=== PATIENT | female | born 1960 | race Caucasian/White ===

== ENCOUNTER 2018-01-14 11:18 | Day surgery (SDC) | payer MEDICARE, OTHER ==
[~2018-01-14 11:18] MED LIST: Buffered Lidocaine 0.9% SYRIN* 5 ML/SYR SYRINGE INTRADERM ONE; Lidocaine 1% INJ* 10 MG/ML 30 ML SDV ONE; Misoprostol TAB* 200 MCG ONE
[2018-01-14] MEDS ORDERED: Buffered Lidocaine 0.9% SYRIN* 5 ML/SYR SYRINGE ONE (11:49)
[2018-01-14] MEDS ORDERED: fentaNYL* 50 MCG/ML 2 ML VIAL (100 MCG VIAL) ONE (12:17)
[2018-01-14] MEDS ORDERED: Midazolam* 1 MG/ML 2 ML VIAL (2 MG) ONE (12:17)
[2018-01-14] MEDS ORDERED: Propofol* 10 MG/ML 20 ML BTL IV PUSH ONE ×2 (12:18→13:42)
[2018-01-14] MEDS ORDERED: Naloxone* 0.4 MG/ML 1 ML VIAL IV PRN (13:56)
[2018-01-14 14:32] VITALS: BP 114/68
--- NOTE | 2018-01-15 10:29 | PRO ---
CC: Dr. Jamison Rivas GASTROENTEROLOGY PROCEDURE NOTE: DATE OF PROCEDURE: 01/14/18 REFERRING PHYSICIAN: Dr. Jamison Rivas. PROCEDURE: Colonoscopy to cecum with snare polypectomy and jumbo biopsies. PREOPERATIVE DIAGNOSIS: A 57-year-old female with first-degree family history of colon cancer. POSTOPERATIVE DIAGNOSES: 1. A 6-mm polyp as well as 2 additional 5-mm polyps of the sigmoid colon, status post cold snare [place] ypectomy and jumbo biopsy resection respectively with complete resection and retrieval. 2. Rare scattered sigmoid diverticulosis. 3. Internal hemorrhoids. PROCEDURE MEDICATIONS: Per Anesthesia. INSTRUMENT: PCF-190 Olympus variable high-definition pediatric colonoscope. DESCRIPTION OF PROCEDURE: Informed consent was obtained prior to performing this procedure. The ins trument was introduced into the anus and passed through the rectum under direct visualization. The i nstrument was then advanced up to the cecum. The cecum was confirmed by visualization of the appendi ceal orifice, ileocecal valve, and tri-folds of the cecum. The colonoscope was slowly withdrawn. The preparation was excellent. Mucosa throughout the cecum, ascending colon, transverse colon, descendi ng colon was normal. Rare scattered sigmoid diverticulosis was present. In the sigmoid colon, there was a 6-mm polyp removed via cold snare polypectomy with complete resection and retrieval and 2 ga tional 5- mm polyps removed via jumbo biopsy resection with complete resection and retrieval. Interna l hemorrhoids were visualized in the rectum. Digital examination was normal. The patient tolerated the procedure well and there were no complications. RECOMMENDATIONS: I will notify the patient of pathology results in 1 week. We will plan on followup colonoscopy in 5 years. [id number]/[facility] #: [id number]
--- NOTE | 2018-01-16 14:59 | HP ---
CC: Jamison Rivas MD GASTROENTEROLOGY HISTORY AND PHYSICAL: DATE OF ADMISSION: 01/14/18 REFERRED BY: Jamison Rivas MD CHIEF COMPLAINT: The patient presents to [facility] for colon cancer screening with emily wiggins assistance in the OR. HISTORY OF PRESENT ILLNESS: Mrs. Altamirano is a 57-year-old female who has a first- degree family histo ry of colon cancer in her mother. The patient does describe long history of constipation unless taki ng senna. There has been no rectal bleeding. She denies any abdominal pain. There has been no weig ht loss. The patient is on pain medications including morphine sulfate, tramadol for back pain issue s. PAST MEDICAL HISTORY: Significant for; 1. Acid reflux disease. 2. Chronic back pain. PAST SURGICAL HISTORY: 1. Status post cholecystectomy. 2. Left breast biopsy. 3. Total knee replacement. MEDICATIONS ON ADMISSION: Include; 1. Nexium 40 mg b.i.d. 2. Celebrex 200 mg daily. 3. Amitriptyline 10 mg daily. 4. Morphine Sulfate ER 60 mg 1 tablet daily. 5. Tramadol 50 mg. 6. Carisoprodol 350 mg 4 times a day. 7. Colestipol. 8. Senna. 9. Fish oil. 10. Centrum Silver. ALLERGIES: 1. CHOLESTYRAMINE. 2. MORPHINE. 3. NEURONTIN. FAMILY HISTORY: Significant for mother with colon cancer. SOCIAL HISTORY: The patient does smoke and drinks occasional alcoholic beverages. REVIEW OF SYSTEMS: A 10-point review of systems is performed and is negative. PHYSICAL EXAMINATION GENERAL: Adriana is a 57-year-old female. VITAL SIGNS: Blood pressure of 110/80, heart rate of 114. HEENT: PERRLA. EOMI. There is no scleral icterus. NECK: Supple. LUNGS: Clear. HEART: Regular rate and rhythm. ABDOMEN: Soft. There is no tenderness. Bowel sounds are present. There is no distention. RECTAL: Normal. SKIN: Warm and dry without rash. IMPRESSION: Mrs. Altamirano has a first-degree family history of colon cancer and a history of constipa tion likely due to chronic narcotic use for chronic back pain. Given the use of chronic narcotics, th e patient is being brought in for surveillance colonoscopy with anesthesia assistance in the OR. RECOMMENDATIONS: Colonoscopy as planned. [id number]/[facility] #: [id number]
== END 2018-01-14 14:32 | disposition home or self-care (01) ==
LOC: OR 11:18
PROVIDERS: ATTEND Internal Medicine
DX: Z12.11 Encounter for screening for malignant neoplasm of colon (principal); Z80.0 Family history of malignant neoplasm of digestive organs; D12.5 Benign neoplasm of sigmoid colon; K57.30 Diverticulosis of large intestine without perforation or abscess without bleeding; K64.8 Other hemorrhoids
CPT/HCPCS: 88305; A9270-GY; J2250; J2704; J3010

== ENCOUNTER 2019-09-13 04:39 | Inpatient (IN) | payer MEDICARE, OTHER ==
[2019-09-13] MEDS ORDERED: Albuterol 0.5% CONC NEB.SOL* 5 MG/ML 20 ml BOT INH ONE (04:49)
[2019-09-13] MEDS ORDERED: Albuterol/Ipratropium NEB.SOL* Albuterol 2.5 MG/Ipratropium 0.5 MG 3 ML INH ONE (04:53)
--- NOTE | 2019-09-13 05:00 | ED ---
Respiratory - HPI Summary HPI Summary: Pt is a 58 y/o F presenting to the ED brought in by EMS for respiratory distress. Per EMS, pt felt febrile. Pt states that she had a sore throat yesterday and had slight shortness of breath, but tonight she experienced severe shortness of breath. She notes a cough, chronic LLE swelling, and she smokes about 10 cigarettes/day, but denies hx of asthma, COPD, or CHF. She also denies hx of blood clots or DM. She had slight mid-epigastric tightness. Denies chest pain. Recently began a beta-jose f. Medications reviewed. Allergies noted. - History of Current Complaint Chief Complaint: EDRespiratoryDistress Stated Complaint: SOB PER EMS Hx Obtained From: Patient, EMS Onset/Duration: Sudden Onset, Lasting Hours, Still Present Timing: Constant Initial Severity: Mild Current Severity: None Pain Intensity: 0 Character: Wheezing, Cough (Nonproductive), Dyspnea at Rest Sputum Amount: None Aggravating Factor(s): Nothing Alleviating Factor(s): Nothing Associated Signs and Symptoms: SOB, Calf Pain/Swelling - left - chronic - Allergy/Home Medications Allergies/Adverse Reactions: Allergies Allergy/AdvReac Type Severity Reaction Status Date / Time Adhesive Tape Allergy Swelling Verified 09/13/19 05:17 [Tegaderm Dressing] cholestyramine Allergy Rash Verified 09/13/19 05:17 gabapentin Allergy See Comment Verified 09/13/19 05:17 MORPHINE IV Allergy N/V Uncoded 01/14/18 11:54 Photosensitive Allergy Rash Uncoded 01/14/18 11:54 Home Medications: Home Medications Propranolol HCl 10 mg PO BID 09/13/19 [History Confirmed 09/13/19] PMH/Surg Hx/FS Hx/Imm Hx Previously Healthy: Yes Endocrine/Hematology History: Reports: Hx Thyroid Disease, Hx Anemia - HISTORY OF, not recent Denies: Hx Blood Disorders, Hx Diabetes Cardiovascular History: Denies: Hx Congestive Heart Failure, Other Cardiovascular Problems/Disorders Respiratory History: Denies: Hx Asthma, Hx Chronic Obstructive Pulmonary Disease (COPD), Other Respiratory Problems/Disorders GI History: Reports: Hx Gastroesophageal Reflux Disease - STATES HAS TOO MUCH STOMACH ACID, Other GI Disorders - cholecystectomy History: Reports: Hx Kidney Stones - history of, none recent Denies: Other Problems/Disorders Musculoskeletal History: Reports: Hx Arthritis - left knee(replaced), left shoulder, Hx Tendonitis - carpal tunnel bilateral arms, Other Musculoskeletal History - DEGENERATIVE DISC DISEASE,STENOSIS, FUSION, osteoporosis Sensory History: Reports: Hx Contacts or Glasses - trifocal and bifocals Denies: Hx Hearing Aid Opthamlomology History: Reports: Hx Contacts or Glasses - trifocal and bifocals Neurological History: Denies: Other Neuro Impairments/Disorders - Cancer History Hx Chemotherapy: No Hx Radiation Therapy: No - Surgical History Surgery Procedure, Year, and Place: BACK SURGERY X2- Fusion T-2 to sacrum. GALLBLADDER REMOVED. RIGHT KNEE MENISCUS AND ACL REPAIRED. LEFT KNEE REPLACEMENT-2016. LEFT BREAST LIPOMA REMOVED. LEFT THIGH- LIPOMA REMOVED. UTERINE ABLATION. TUBAL RUPTURE- TUBE REMOVED Hx Anesthesia Reactions: No Infectious Disease History: No Infectious Disease History: Denies: Traveled Outside the [place] in Last 30 Days - Family History Known Family History: Negative: Diabetes - Social History Alcohol Use: Occasionally Hx Substance Use: No Substance Use Type: Reports: None Hx Tobacco Use: Yes Smoking Status (MU): Current Every Day Smoker Amount Used/How Often: 3/4 ppd Review of Systems Positive: Sore Throat Positive: Other - mid-epigastric tightness. Negative: Chest Pain Positive: Shortness Of Breath, Cough Positive: Edema - LLE - chronic All Other Systems Reviewed And Are Negative: Yes Physical Exam - Summary Physical Exam Summary: Constitutional: Well-developed, Well-nourished, Alert. Pt in respiratory distress, speaking in short sentences. Skin: Warm, Dry HENT: Normocephalic; Atraumatic Eyes: Conjunctiva normal Neck: Musculoskeletal ROM normal neck. (-) JVD, (-) Stridor, (-) Tracheal deviation Cardio: Rhythm regular, rate normal, Heart sounds normal; Intact distal pulses; Radial pulses are 2+ and symmetric. (-) Murmur Pulmonary/Chest wall: Respiratory distress. Speaking in short sentences. Retracting, tripoding. Decreased air entry in all lung ryan. Expiratory wheezing bilaterally. Abd: Soft, (-) tenderness, (-) Distension, (-) Guarding, (-) Rebound Musculoskeletal: (-) Edema Lymph: (-) Cervical adenopathy Neuro: Alert, Oriented x3 Psych: Mood and affect Normal Triage Information Reviewed: Yes Vital Signs On Initial Exam: Initial Vitals Temp Pulse Resp BP Pulse Ox 98.5 F 114 26 141/107 91 09/13/19 04:40 09/13/19 04:40 09/13/19 04:40 09/13/19 04:40 09/13/19 04:40 Vital Signs Reviewed: Yes Procedures - Sedation Patient Received Moderate/Deep Sedation with Procedure: No Diagnostics - Vital Signs Vital Signs Temp Pulse Resp BP Pulse Ox 09/13/19 04:40 98.5 F 114 26 141/107 91 - Laboratory Result Diagrams: 09/13/19 05:13 09/13/19 05:13 Lab Statement: Any lab studies that have been ordered have been reviewed, and results considered in the medical decision making process. - Radiology CXR Radiology Interpretation Completed By: ED Physician Summary of Radiographic Findings: No acute process. Pending official radiology report. - EKG 0506 Cardiac Rate: Tachycardia - 118bpm EKG Rhythm: Sinus Tachycardia ST Segment: Normal Ectopy: None Summary of EKG Findings: EKG at 0506 shows sinus tachycardia at 118bpm with T- wave in aVL and Q-waves in v1 and v2. No STEMI. ED physician has reviewed and interpreted this EKG. 0610 Cardiac Rate: Tachycardia - 114bpm EKG Rhythm: Sinus Tachycardia ST Segment: Normal Ectopy: None Summary of EKG Findings: EKG at 0610 shows sinus tachycardia at 114bpm with no change from prior. ED physician has reviewed and interpreted this report. Re-Evaluation - Re-Evaluation 1st re-eval Re-Evaluation Time: 05:14 Change: Unchanged Comment: Given nebulizer. Started on BiPAP. Breathing improving. 2nd re-eval Re-Evaluation Time: 06:23 Change: Improved Comment: Removed BiPAP for trial of breathing off of BiPAP. Disposition - Course Course Of Treatment: Patient came in in respiratory distress with wheezing. Patient has no diagnosed cardiac or respiratory illness. Patient was started on propanolol on Friday for hyperthyroidism which was diagnosed this week. Patient does have a long smoking history. Patient is placed on BIPAP and given a 10 mg albuterol nebulization treatment with improvement in her respiratory status. Patient had an EKGwhich showed tachycardia with no ischemic changes. Patient had a negative d-dimer for PE. Patient had a negative chest x-ray for pneumothorax or pneumonia. She had an elevated troponin so she was given an aspirin. Cardiology was called and recommended starting heparin. Patient potentially has underlying undiagnosed COPD and developed an exacerbation following propanolol use. Patient was admitted to the hospitalist service. - Diagnoses Provider Diagnoses: Respiratory distress, Wheezing, NSTEMI (non-ST elevated myocardial infarction) , Hyperthyroidism, Tachycardia - Critical Care Time Critical Care Time: 75-104 min - 75 Discharge ED - Sign-Out/Discharge Documenting (check all that apply): Patient Departure - Discharge Plan Condition: Stable Disposition: ADMITTED TO [facility] Referrals: Jamison Rivas MD [Primary Care Provider] - - Billing Disposition and Condition Condition: STABLE Disposition: Admitted to [facility] - Attestation Statements Document Initiated by Aurea: Yes Documenting Scribe: Jovita Castro Provider For Whom Aurea is Documenting (Include Credential): Tang Becerra MD. Scribe Attestation: Jovita Padilla, scribed for Tang Becerra MD. on 09/13/19 at 0644. Scribe Documentation Reviewed: Yes Provider Attestation: The documentation as recorded by the Jovita white accurately reflects the service I personally performed and the decisions made by me, Tang Becerra MD. Status of Scribe Document: Viewed Consult Consult: 611 - I spoke with Dr. Johnson about the pt's present condition who recommends a Heparin drip and admission to [facility]. 623 - I spoke with Dr. Nroth about the pt who accepts pt for admission.
[2019-09-13 05:21] LABS: ABS Eosinophils 0.2 10^3/ul (0-0.6); ABS Lymphocytes 1.6 10^3/ul (1.0-4.8); ABS Monocytes 0.4 10^3/ul (0-0.8); Eosinophil % 2.8 %; Hematocrit 40 % (35-47); Hemoglobin 13.7 g/dL (12.0-16.0); Lymphocyte % 19.8 %; Mean Corpuscular HGB Conc 34 g/dL (31-36); Mean Corpuscular Hemoglobin 31 pg (27-31); Mean Corpuscular Volume 90 fL (80-97); Mean Platelet Volume 8.1 fL (7.4-10.4); Platelet Count 267 10^3/uL (150-450); Red Blood Count 4.48 10^6 /uL (3.70-4.87); Red Cell Distribution Width 12 % (10-15); White Blood Count 8.3 10^3/uL (3.5-10.8)
[2019-09-13 05:44] LABS: ALT 35 U/L (7-52); AST 59 U/L (13-39); Albumin 3.7 g/dL (3.2-5.2); Albumin/Globulin Ratio 2.2 (1-3); Alkaline Phosphatase 127 U/L (34-104); BUN/Creatinine Ratio 9.4 (8-20); Blood Urea Nitrogen 5 mg/dL (6-24); CO2 Carbon Dioxide 23 mmol/L (22-32); Calcium 8.4 mg/dL (8.6-10.3); EGFR African American 143.4 (>60); EGFR Non-African American 118.5 (>60); Globulin 1.7 g/dL (2-4); Glucose 128 mg/dL (70-100); Potassium 3.8 mmol/L (3.5-5.0); Sodium 143 mmol/L (135-145); Total Protein 5.4 g/dL (6.4-8.9)
[2019-09-13 05:46] LABS: Anion Gap 7 mmol/L (2-11); Chloride 113 mmol/L (101-111)
[2019-09-13 05:59] LABS: Troponin I 0.34 ng/mL (<0.04)
[2019-09-13] MEDS ORDERED: Aspirin 81 mg CHEW TAB* 81 MG TAB.CHEW PO ONE (06:00)
[2019-09-13 06:11] LABS: Free T4 1.51 ng/dL (0.61-1.12)
--- OUTSIDE RECORDS SUMMARY | 2019-09-13 06:28 | XMS REPORT | Continuity of Care Document ---
:1960 External Reference #:[id number] Author Name Jamison Rivas M.D. Address [address] [place] [address] Care Team Providers Name Role Phone Teo Law MD - Neurological Care Team Information [facility] Jamison Rivas MD - Family Medicine Care Team Information [employer] [facility] [phone] Darling Pitts FNP - Care Team Information [employer] [facility] [phone] Gastroenterology Problems Active Problems Provider Date Backache Jamison Rivas M.D. Onset: 10/17/2011 Gastroesophageal reflux disease Jamison Rivas M.D. Onset: 10/17/2011 Tobacco user Jamison Rivas M.D. Onset: 10/17/2011 Low back pain Jamison Rivas M.D. Onset: 09/07/2015 Carpal tunnel syndrome Jamison Rivas M.D. Onset: 06/20/2016 Degenerative joint disease involving Jamison Rivas M.D. Onset: 12/31/2018 multiple joints Mixed hyperlipidemia Jamison Rivas M.D. Onset: 12/31/2018 Nonvenomous insect bite of scapular region Jamison Rivas M.D. Onset: with infection Essential tremor Jamison Rivas M.D. Onset: 09/07/2019 Essential hypertension Jamison Rivas M.D. Onset: 09/07/2019 Social History Type Date Description Comments Sex Unknown Tobacco Use Start: Unknown End: Unknown Former Cigarette Smoker ETOH Use Rarely consumes alcohol Tobacco Use Start: Unknown End: Unknown Patient is a former smoker Allergies, Adverse Reactions, Alerts Active Allergies Reaction Severity Comments Date Neurontin 01/31/2004 Morphine Sulfate Liquid Morphene 06/25/2005 Tape Clear Tape Used During CT Scan 09/23/2008 Cholestyramine 04/21/2012 Sun Urticaria 04/17/2015 Seasonal 03/14/2016 Mucinex hives? 12/03/2018 Citrucel hives? 12/03/2018 Benadryl Hives 07/09/2019 Decongestants Hives 07/09/2019 Claritin-D Hives 07/09/2019 Medications Active Medications SIG Qnty Indications Ordering Date Provider Doxycycline Hyclate 2 tabs by mouth 2caps Jamison F. 09/07/2019 100mg Angel Rivas Capsules Propranolol HCL 1 by mouth twice 120tabs Jamison F. 09/07/2019 10mg a day Angel Rivas Tablets Senna-S 4 by mouth every 120tabs Jamison F. 05/03/2019 8.6-50mg Tablets day as needed Angel Rivas Esomeprazole Magnesium Take 1 Capsule 180caps Emil JLynda 02/05/2019 40mg By Mouth Twice Angel Funes Capsules DR Daily Celecoxib take 1 capsule 180caps Jamison F. 02/05/2019 200mg Capsules by mouth twice a Angel Rivas day Diphenhydramine HCL 1-2 by mouth at 30caps Jamison F. 12/03/2018 25mg bedtime as Angel Rivas Capsules needed Fish Oil Jamison F. 08/27/2018 [id number] Angel Rivas Capsules Morphine Sulfate ER take 1 tablet by 30caps Sydnie Jannette 04/03/2017 60mg mouth once daily MENDOZA Faulkner Caps ER 24HR mdd 1 Ra P Col-Rite take 4 tablets 360tabs Jamison F. 03/05/2016 8.6-50mg at bedtime Angel Rivas Tablets Carisoprodol take 1 tablet 120tabs Jamison F. 12/23/2015 350mg Tablets four times a day Angel Rivas as needed Amitriptyline HCL take 2 tablets 180tabs Jamison F. 04/27/2013 10mg at bedtime Angel Rivas Tablets Tramadol HCL take 1 tablet 120tabs Jamison F. 01/27/2012 50mg Tablets every 6 hours as Angel Rivas needed mdd 4 mdd 4 mdd 4 Betamethasone apply to 45gm Jamison FLynda 04/01/2000 Dipropionate affected area Angel Rivas 0.05% Cream twice a day if needed Colestipol HCL Take 1 Tablet By 180tabs Jamison FLynda 1gm Tablets Mouth Twice A Angel Rivas Day Centrum Silver Ultra Unknown Womens Tablets Claritin 1 by mouth every Unknown 10mg Tablets day Medications Administered in Office Medication SIG Qnty Indications Ordering Provider Date TB Intradermal Test Nurse, Nurse 09/26/1999 Injection TB Intradermal Test Jamison Rivas M.D. 09/24/1999 Injection Immunizations CPT Code Status Date Vaccine Lot # [id number] Given 10/14/2017 Tdap Tetanus, W Pertussis [id number] Given 06/04/2012 Zostivax [id number] Given 09/23/2008 DO Not Use Split Influenza Virus Vaccine [id number] Given 10/08/2007 DO Not Use Split Influenza Virus Vaccine [id number] 22259 Given 09/15/2006 DO Not Use Split Influenza Virus Vaccine [id number] Given 09/18/1999 Pneumococcal Immunization [id number] Given 09/18/1999 DO Not Use Split Influenza Virus Vaccine Vital Signs Date Vital Result Comment 09/07/2019 1:58pm BP Systolic 160 mmHg BP Diastolic 94 mmHg Heart Rate 102 /min Body Temperature 97.7 F Respiratory Rate 18 /min Height 60 inches 5'0" Weight 162.00 lb BMI (Body Mass Index) 31.6 kg/m2 07/09/2019 3:56pm BP Systolic 138 mmHg BP Diastolic 66 mmHg Heart Rate 120 /min Body Temperature 96.8 F Respiratory Rate 16 /min Height 60 inches 5'0" Weight 164.12 lb BMI (Body Mass Index) 32.0 kg/m2 Results Test Date Facility Test Result H/L Range Note Laboratory test 09/07/2019 [facility]) TSH <pending> 0.5-5.0 finding Free T4 <pending> 0.75-1.54 Free T3 <pending> 2.0-4.9 Procedures Date Code Description Status 06/10/2018 [id number] Mammogram Completed 01/14/2018 [id number] Colonoscopy Completed 04/29/2017 [id number] Mammogram Completed 06/05/2015 [id number] Mammogram Completed 06/03/2014 [id number] Mammogram Completed 05/19/2013 [id number] Mammogram Completed 04/29/2012 [id number] Mammogram Completed 01/31/2011 [id number] Mammogram Completed 01/08/2011 [id number] Bone Mineral Density Test Completed 10/02/2010 [id number] Colonoscopy Completed 02/16/2009 [id number] Mammogram Completed 11/11/2007 [id number] Mammogram Completed Medical Devices Description No Information Available Encounters Type Date Location Provider Dx Diagnosis Office Visit 07/09/2019 [facility] Jamison Rivas M54.5 Low back pain 3:40p M.DLynda Assessments Date Code Description Provider 09/07/2019 S20.469A Insect bite (nonvenomous) of unspecified Jamison Rivas M.D. back wall of thorax, initial encounter 09/07/2019 G25.0 Essential tremor Jamison Rivas M.D. 09/07/2019 I10 Essential (primary) hypertension Jamison Rivas M.D. 09/07/2019 M54.5 Low back pain Jamison Rivas M.D. 07/09/2019 M54.5 Low back pain Jamison Rivas M.D. Plan of Treatment Future Appointment(s):10/12/2019 3:00 pm - Jam[facility]07/2019 - Jamison Rivas M.D.S20.469A Insect bite (nonvenomous) of unspecified back wall of thorax, initial encounterComments:She was given 200 mg of doxycycline to take as a one-time dose, if she has progression of her skin lesion will start doxycycline 100 mg twice a day for 2 [id number] Essential tremorComments:Check thyroid status, start propranolol 10 mg twice a day, may need increase in his medication and refer to neurology for [id number] Essential (primary) hypertensionComments:Blood pressure is mildly elevated on exam today, she is starting propranolol for her essential tremor, will continue to follow her blood pressure and call [id number] Low back painComments:Patient 's condition is stable regarding her low back discomfort related to an injury lifting at workin 1988. She'll continue her present medicationsFollow up: Followup:. (Follow up)AllNew Medication:Doxycycline Hyclate 100 mg - 2 tabs by mouthPropranolol HCL 10 mg - 1 by mouth twice a dayComments:Patient has a small tick bite on her back, there is no evidence of erythema chronicum migrans, doxycycline 200 mg was given, await Lyme testingPatient also has symptoms of essential tremor that is new,check thyroid status, start propranolol 10 mg twice a day consider increasing the dose and refer to neurology Functional Status Description No Information Available Mental Status Description No Information Available Referrals Refer to Reason for Referral Status Appt Date [facility] essential tremor jw Sent [address] [place] [address] [place] [address] [phone]
[2019-09-13] MEDS ORDERED: Heparin DRIP 25,000 UNITS(*) 25,000 UNITS/500 ML BAG IV SCH ×2 (06:30→07:00)
[2019-09-13] MEDS ORDERED: Heparin VIAL(*) 5000 UNITS/ML VIAL (FIVE THOUSAND) IV PRN (07:13)
[2019-09-13] MEDS ORDERED: Carisoprodol TAB* 350 MG PO PRN (07:41)
[2019-09-13] MEDS ORDERED: Albuterol/Ipratropium NEB.SOL* Albuterol 2.5 MG/Ipratropium 0.5 MG 3 ML INH PRN (07:43)
[2019-09-13] MEDS ORDERED: methylPREDNISolone SOD 40 MG* 1 ML VIAL IV ONE (07:46)
[2019-09-13] MEDS ORDERED: Iohexol 350* (CONTRAST) 500 ML MDV IV ONE (08:11)
[2019-09-13] MEDS ORDERED: Diltiazem CD CAP* 120 MG PO ONE (08:17)
[2019-09-13 08:40] LABS: Troponin I 1.13 ng/mL (<0.04)
[2019-09-13] MEDS ORDERED: Nitroglycerin TAB 0.4 MG* 0.4 MG TAB ONE (08:57)
[2019-09-13] MEDS ORDERED: Nitroglycerin TAB 0.4 MG* 0.4 MG TAB SL PRN (08:58)
[2019-09-13] MEDS ORDERED: Diazepam TAB(*) 5 MG PO PRN (09:25)
[2019-09-13] MEDS ORDERED: diPHENhydraMINE PO* 25 MG PO PRN (09:25)
[2019-09-13] MEDS ORDERED: NS 0.9% 1000 ML** 1,000 ML IV SCH (09:30)
[2019-09-13] MEDS ORDERED: Midazolam* 1 MG/ML 5 ML VIAL (5 MG) ONE (09:38)
[2019-09-13] MEDS ORDERED: Lidocaine 1% INJ* 10 MG/ML 30 ML SDV ONE (09:38)
[2019-09-13] MEDS ORDERED: Heparin 2 UNITS/ML IVPREMIX* 2,000 ML IV ONE (09:38)
[2019-09-13] MEDS ORDERED: fentaNYL* 50 MCG/ML 2 ML VIAL (100 MCG VIAL) ONE (09:38)
[2019-09-13 09:39] LABS: Creatine Kinase 87 U/L (10-223)
[2019-09-13 09:39] LABS: Creatine Kinase 63 U/L (10-223)
[2019-09-13] MEDS ORDERED: Iohexol 350 (CONTRAST) 200 ML MDV IV ONE ×2 (09:39→10:10)
[2019-09-13 09:44] LABS: CKMB ng/mL 5.8 ng/mL (0.6-6.3)
[2019-09-13 09:45] LABS: CKMB ng/mL 10.7 ng/mL (0.6-6.3)
[2019-09-13 09:57] LABS: INR 0.91 (0.82-1.09)
[2019-09-13] MEDS ORDERED: nitroGLYCERIN DRIP* 25,000 MCG/250 ML BTL IV SCH (10:00)
[2019-09-13] MEDS ORDERED: diPHENhydraMINE IV* 50 MG/ML 1 ml VIAL (BENADRYL) ONE (10:05)
[2019-09-13] MEDS ORDERED: nitroGLYCERIN DRIP* 0 MCG/0 ML BTL ONE (10:10)
[2019-09-13] MEDS ORDERED: Acetaminophen TAB* 325 MG PO PRN (10:36)
--- NOTE | 2019-09-13 10:39 | CONS ---
CC: Dr. Rivas; Dr. Ovidio Swan CONSULTATION REPORT: DATE OF CONSULT: ATTENDING PHYSICIAN: Dr. Ovidio Swan, Cardiology. PRIMARY PHYSICIAN: Dr. Rivas. PRIMARY PARCEL POST WEIGHER: None. CHIEF COMPLAINT: Shortness of breath, tremors, thyroid disease. HISTORY OF PRESENT ILLNESS: This is a 58-year-old female patient with newly diagnosed hyperthyroidism in addition to ongoing tobacco abuse and newly found hypertension. The patient states that she had been in her usual state of health up until about 6 weeks ago when she started to notice resting tremors, 8- pound weight loss, loss of appetite, feeling of restlessness. She was evaluated by a primary physician on 09/07/19 due to tremors and a tick bite on her back. The patient states her systolic blood pressure at that time was 160. She was prescribed propranolol 10 mg p.o. b.i.d. She states since then she has been noticing intermittent shortness of breath; however, last night around 2 :30 in the morning while getting up to go to the bathroom, she developed sudden onset profound shortness of breath with associated diaphoresis and dizziness and right-sided chest pressure. The patient states that she sat on the ground and called 911. She was unable to move from that position, thus EMS had to break into her home. According to the emergency room medical records, the patient was complaining of shortness of breath, temp 98.5, pulse 114, oxygenation 91%, blood pressure 141/107. She is put on nasal cannula oxygen. Basic blood work was updated. Troponin #1 was 0.34, thus we were asked to see the patient in consultation. TSH 0.0, free T4 of 1.51. V/Q scan is pending. She did undergo a chest x-ray which per radiology report, no active cardiopulmonary disease. Her D-dimer was less than 200. She was given aspirin 324 mg a day and she is currently lying in bed and is still tachypneic. She rates chest pain currently as 3/10 and states it is worse with inspiration and coughing, not related to palpation or movement. Last ischemic evaluation none. PAST MEDICAL HISTORY: 1. Hyperthyroidism, newly diagnosed. 2. Ongoing tobacco abuse. 3. GERD. 4. Chronic back pain. 5. Newly found hypertension. PAST SURGICAL HISTORY: Includes: 1. Cholecystectomy. 2. Uterine ablation. 3. Polypectomy in 2018. 4. Left knee replacement in 2016. 5. Breast lipoma removal. 6. Back surgery. HOME MEDICATIONS: Listed include: 1. Propranolol 10 mg p.o. b.i.d. 2. Nexium 60 mg p.o. b.i.d. 3. Colestipol 1 g. 4. Morphine 60 mg p.o. daily. 5. Elavil 20 mg p.o. at q.h.s. 6. Tramadol 50 mg p.o. q.6 h. p.r.n. 7. Soma 350 mg p.o. 4 times a day p.r.n. 8. Ultram 50 mg p.o. q.6 h. p.r.n. ALLERGIES: Listed include: 1. ADHESIVE TAPE. 2. LYRICA. 3. IV MORPHINE. 4. NEURONTIN. 5. DECONGESTANTS. FAMILY HISTORY: Noncontributory. SOCIAL HISTORY: The patient is single, lives at home alone, is disabled. Reports rare alcohol use, denies illegal drug use. In regards to her activity, she is severely limited due to chronic back pain, although she states that she will walk her dog with no difficulties. She smokes half a pack of cigarettes a day. REVIEW OF SYSTEMS: All systems have been reviewed and otherwise negative except as mentioned in the HPI. PHYSICAL EXAM: Vital Signs: Pulse 114, oxygenation 98% on nasal cannula oxygen , blood pressure 127/65. General: The patient is tachypneic, alert and oriented, cooperative with exam. HEENT: Head is atraumatic and normocephalic, oral mucosa is moist, tongue is midline. Neck: Supple. Trachea midline. No JVD, no carotid bruits. Cardiac: Tachycardic, S1 and S2, regular rate and rhythm. No murmur, gallop, or rub noted. Lungs: Auscultated posteriorly. Clear throughout. No evidence of adventitious breath sounds. /GI: Abdomen is soft, nontender, normoactive bowel sounds x4, no hepatomegaly. Extremities: No pedal edema, no clubbing, no cyanosis. Peripheral Vascular: 3+ brachial and dorsalis pedis pulse palpated bilaterally and symmetrically. Skin is intact. There is a small 0.5 cm bite noted in her upper back. No bull's-eye rash noted. DIAGNOSTIC STUDIES/LAB DATA: Blood work: D-dimer less than 200, white count 8.3, hemoglobin 13.7, hematocrit 40, platelets 267. Sodium 143, potassium 3.8, chloride 113, BUN 5, glucose 128, troponin #1 0.34, troponin #2 of 1.13, TSH 0.0 , free T4 of 1.51. ECG obtained on 09/13/19: Sinus tachycardia, rate 118. No ST-segment elevation or depression appreciated. V/Q scan pending. Echocardiogram pending. ASSESSMENT AND PLAN: 1. Troponinemia. Troponin continues to rise. Troponin #2 was 1.13. The patient complains of 3/10 right-sided chest pressure, worse with inspiration and cough. We will obtain echocardiogram stat to rule out focal wall-motion abnormality and RV strain. The patient was seen for acute respiratory distress. This could be a physiologic response. Risk factors include ongoing tobacco abuse and newly found hypertension. Recommend continuing IV heparin therapy, aspirin 81 mg a day. She will need an eventual ischemic evaluation which will depend on echocardiogram. We will follow closely. 2. Newly found hyperthyroidism. Pending Dr. Jermaine Esparza's consultation. Primary team managing. At this time, avoid contrast dye and beta-jose f therapy per primary team. 3. Recently diagnosed hypertension. The patient is currently normotensive. 4. Sinus tachycardia, etiology not clear, pending V/Q scan to rule out pulmonary embolism. She has newly found hyperthyroidism. It was recommended to avoid beta- blockade therapy by Endocrinology. We will continue calcium channel jose f therapy. Please note in 2009, her resting rate was 111. 5. Disposition. Pending course. The patient is full code. We will continue to cycle isoenzymes. Check echocardiogram to rule out focal wall motion abnormality and RV strain and make further recommendations to follow. Dr. Ovidio Swan agrees with the above assessment and plan. KAITY CHEN NP [id number]/[facility] [place] #: [id number] MENDOZA
--- NOTE | 2019-09-13 11:12 | HP ---
CC: Dr. Rivas; Dr. Esparza; Dr. Swan * HISTORY AND PHYSICAL: DATE OF ADMISSION: 09/13/19 TIME OF EVALUATION: 7:40 a.m. PRIMARY CARE PROVIDER: Dr. Rivas. CONSULTING PROGRESSIVE CARE NURSE: Dr. Esparza. CONSULTING DRY DIP WORKER: Dr. Swan. CHIEF COMPLAINT: Shortness of breath. HISTORY OF PRESENT ILLNESS: Ms. Altamirano is a 58-year-old female with a past medical history of chronic back pain, who presented to the emergency room in respiratory distress with wheezing requiring BiPAP on arrival. The patient states that she has been experiencing tremors for a couple of weeks and she went to see her primary care provider on 09/08/19. At that time, she had been started on propranolol for her tremors and further workup had been requested by her PCP. Over the weekend, she started to experience some sore throat, some runny nose, and saw that she was coming down with cold. She states that she always get sick when she goes to the doctor's office. She states that yesterday she started to have progressive shortness of breath and overnight she got to the point that she walked to the bathroom and was unable to return. She sat on the floor severely short of breath and was able to call 911. She was unable to open the door and they had to break in to get to her. She also complains of retrosternal chest pain that she rates an 8/10, no radiation and she states that the pain is resolved now, but she feels like her chest "went through hell." She denies fever, but had some chills and dry cough. There was no nausea, vomiting, diarrhea or urinary complaints. The patient denies ever being diagnosed of COPD or asthma, but states that in February she had an allergic reaction to something that caused hives and wheezing and she was treated with steroids at that time. PAST MEDICAL HISTORY: Chronic back pain. The patient states that she had spondylolisthesis requiring multiple spinal fusions. The first one in the . ALLERGIES: ADHESIVE TAPE, CHOLESTYRAMINE, GABAPENTIN and with MORPHINE IV she had nausea and vomiting, but she has no issues with p.o. morphine. FAMILY HISTORY: She has a niece with Graves' disease. Father had dementia and she thinks he had a stroke. SOCIAL HISTORY: The patient has been a smoker since her early 20s up to 1 pack per day. She states that she is now down to half a pack a day. She drinks alcohol occasionally 1 to 2 glasses of wine a month. She denies any drug use. Surrogate decision maker is her sister, Gladys Diaz, phone number is . REVIEW OF SYSTEMS: A 14-point review of systems was performed and all the pertinent negative and positive findings are in the HPI. PHYSICAL EXAMINATION GENERAL: The patient is a pleasant lady, sitting up in bed, in no acute distress. VITAL SIGNS: Temperature 98.5, heart rate is 116, respiratory rate is 18, oxygen saturation is 99% on 4 L nasal cannula, blood pressure is 129/87. HEENT: Pupils are equal. Moist mucous membranes. CHEST: Breath sounds bilaterally diminished with faint wheezing bilaterally. CVS: Normal S1, S2. Regular rate and rhythm. Tachycardic. ABDOMEN: Soft, nontender, nondistended. Bowel sounds present. EXTREMITIES: There is no pitting edema. The left lower extremity is slightly larger than the right. The patient states that she broke the leg a couple of years ago and the left one has been larger than the right since. NEURO: She is alert and oriented x3. Able to move all 4 extremities. DIAGNOSTIC STUDIES/LAB DATA: The patient had a CBC that showed a WBC of 8.3, hemoglobin of 13.7, hematocrit of 40, platelets of 267 with 72% neutrophils. D - dimer was less than 200. VBG showed a pH of 7.32, pCO2 of 45, pO2 of 95, bicarb was 22.5 with the oxygen saturation 99%. Chemistry showed sodium of 143 , potassium of 3.8, chloride of 113, carbon dioxide of 23, BUN of 5, creatinine of 0.53, glucose of 128, calcium of 8.4. First troponin was 0.34, BNP 133. TSH was 0, free T4 was 1.5. Her chest x-ray showed no acute cardiopulmonary disease. EKG done on 09/13/19 at 5:06 a.m. showed sinus tachycardia at 118 beats per minute with no acute ischemic changes. Followup EKG done the same date at 6:10 a.m. showed sinus tachycardia at 114 beats per minute with no ischemic changes, no significant change from the prior one. ASSESSMENT AND PLAN: Ms. Altamirano is a 58-year-old female with a past medical history of chronic back pain, tobacco abuse, who was recently started on beta blockers for tremors, who presents to the emergency room in respiratory distress , found to have respiratory failure secondary to chronic obstructive pulmonary disease exacerbation and troponin elevation with a background of recently diagnosed hyperthyroidism. 1. Acute hypoxic respiratory failure. I suspect this is secondary to underlying undiagnosed chronic obstructive pulmonary disease that was exacerbated due to a viral infection as the patient was complaining of sore throat and runny nose as well as being recently started on propranolol. She required BiPAP in the emergency room, but at this time she is being relieved and is comfortable on 4 L of oxygen via nasal cannula. 2. She would be admitted intensive care unit for further monitoring and management. 3. Chronic obstructive pulmonary disease exacerbation. The patient has no formal diagnosis of chronic obstructive pulmonary disease, but she has been a long-term smoker. In February, she had an episode of hives associated with wheezing that required steroid therapy. I believe the exacerbation at this time is secondary to a viral infection as well as beta jose f use. I will not start antibiotics at this point. She will receive steroids and bronchodilators. 4. Tobacco cessation was encouraged and she will receive nicotine supplementation while in the hospital. 5. Troponin elevation. I suspect this is likely secondary to demand ischemia in the setting of respiratory distress. The patient did have complaints of chest pain, but her EKG shows no acute ischemic changes. We are going to trend troponins until peak. We are going to check an echocardiogram looking for wall motion abnormalities and she was already started on aspirin and heparin drip. With her bronchospasm, we are going to avoid beta blockers at this time. May be later on, when she is more stable, we could try a more selective beta jose f and watch her response. I discussed the case with Cardiology (Dr. Swan ) and after reviewing the case, the decision is to start diltiazem to slow down her heart rate for now. Another possibility is that her troponin elevation could be secondary to pulmonary embolism. With her hyperthyroidism, we will avoid a CT of the chest for now. She will have a V/Q scan to rule out pulmonary embolism. 6. Hyperthyroidism. The patient has had tremors for a couple weeks. Her TSH was 0 with a free T4 of 1.5. I discussed the case with the nozzle operator ( Dr. Esparza). He does not think this represents thyroid storm as her hyperthyroidism appears to be mild. I believe her respiratory failure was secondary to beta jose f use and not necessarily associated with her hyperthyroidism. Plan at this time is to give her steroids, start methimazole 5 mg daily, check TSI. Later on when the patient is more stable we could do iodine scan to see if her thyroid is capturing more iodine suggestive of Graves disease (the patient does have a family history of Graves' disease). 7. Chronic back pain. The patient will be continued on her usual medications including long-acting morphine. 8. DVT prophylaxis. The patient has a score of 3 on the DVT Prophylaxis Risk Assessment Guide and she will be continued on heparin drip. 9. Code status is full. TIME SPENT: Approximately 70 minutes was spent with the patient's interview, medical records review, physical examination to complete this admission, more than half this time was spent [id number] with the patient and coordination of care. [id number]/[facility] #: [id number] MTDD
[2019-09-13 11:47] LABS: Cholesterol 79 mg/dL; HDL Cholesterol 25.5 mg/dL; LDL Cholesterol 44 mg/dL; Triglycerides 50 mg/dL
[2019-09-13 12:04] LABS: INR 1.25 (0.82-1.09)
[2019-09-13] MEDS: Morphine TAB Extended Release (*) 30 MG TAB.ER PO SCH (12:42)
[2019-09-13] MEDS: Aspirin EC TAB* 81 MG TAB.EC PO SCH (12:42)
[2019-09-13] MEDS: celeCOXIB CAP* 200 MG PO SCH ×2 (12:42→20:00)
[2019-09-13] MEDS: Pantoprazole TAB * 40 MG TAB PO SCH ×2 (12:42→20:01)
[2019-09-13] MEDS: Methimazole TAB* 5 MG PO SCH (12:42)
[2019-09-13] MEDS: Nicotine PATCH 14 MG/24 HR* PATCH TRANSDERM SCH (12:43)
[2019-09-13] MEDS: COLESTIPOL 1 GM PO SCH ×3 (12:44→23:57)
[2019-09-13] MEDS ORDERED: Heparin VIAL(*) 5000 UNITS/ML VIAL (FIVE THOUSAND) SUBCUT SCH (14:00)
[2019-09-13] MEDS: traMADol TAB* 50 MG PO PRN (15:18)
--- NOTE | 2019-09-13 15:52 | CATH ---
"*[facility]* [place] [address] Main: [phone] [email or web address] Cardiac Catheterization Patient: Adriana Altamirano : 1960 Study Date: 09/13/2019 Age: 58 Gender: F HR: Height: 59 in /149.9 cm BSA: 1.8 m^2 Weight: 165 lb /75 kg BMI: 33.4 kg/m^2 Partner Marketing Manager: Ovidio Swan MD Ordering Physician: Eleonora Jackson Referring Physician: Eleonora Jackson Thuman Ashlin, --- - Left coronary angiography. - Right coronary angiography. - Right femoral sheath side-port angiography. Summary: No signifcant coronary artery disease. Recommendations: Patient with dyspnea, elevated troponin and anterior severe hypokinesis. No CAD. 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 Continue medical management. History: Risk factors: Current tobacco use. Medications: The patient received antianginal therapy in the last two weeks, including: calcium channel blockers. Labs, prior tests, procedures, and surgery: Blood tests: Troponin I (pre-procedure) of 1.13 ng/ml. Serum potassium (K) of 3.8 mEq/l. Serum sodium (Na) of 143 mEq/l. Serum creatinine (current admission) of 0.53 mg/dl. Blood urea nitrogen of 5 mg/dl. Glucose of 128 mg/dl. Platelet count of 267 th/ul. White blood cell count (WBC) of 0.01 th/ul. Red blood cell count (RBC) of 4400 th/ul. Hematocrit of 40 %. Hemoglobin (pre-procedure) of 13.7 g/dl. Study data: Study status: Cardiac cath: urgent. Location: Catheterization laboratory. Consent: The risks, benefits, and alternatives to the procedure were explained to the patient and/or their healthcare primary care sales representative and written informed consent was obtained. All available pre-procedure labs were reviewed. Height: 149.9 cm. 59 in. Weight: 75 kg. 165 lb. Body surface area: 1.8 m^2. Body mass index: 33.4 kg/m^2. Procedure: 1. Initial setup. The patient was brought to the laboratory. Surface ECG leads, blood pressure measurements, and pulse oximetric signals were monitored. A baseline seven lead ECG was recorded. A time out was observed per protocol. 2. Skin preparation. The planned puncture sites were prepped and draped in the usual sterile manner. 3. Local anesthesia. 1% lidocaine was administered. 4. Supplemental oxygen. Oxygen, 2 L/min was administered throughout the procedure. 5. Local anesthesia. 1% lidocaine (6 ml) was administered. 6. Right femoral artery access. A 6F [employer]i Sheath 11 cm sheath was advanced into the vessel. 7. Selective left coronary angiography. A 6F JL 4 catheter was advanced into the left coronary vessel ostium under fluoroscopic guidance. Contrast was injected. Images were obtained in multiple projections. 8. Selective right coronary angiography. A 6F JR 4 catheter was advanced into the right coronary vessel ostium under fluoroscopic guidance. Contrast was injected. Images were obtained in multiple projections. 9. Right femoral sheath side-port angiography, for closure evaluation, under fluoroscopic guidance. Contrast was injected into the sheath side port. 10. Right femoral artery hemostasis. Vessel closure was achieved with a 6F Angio-Seal Evolution device. 11. Right femoral artery hemostasis. Vessel closure was achieved with a 6F Angio-Seal Evolution device. Study completion: Minimal estimated blood loss. All catheters inserted during the procedure were removed. There were no apparent complications. Administered medications: Aspirin, 324mg, PO. VERSED (Midazolam), 2mg, IV. Fentanyl, 25mcg, IV. BENADRYL (Diphenhydramine), 25mg, IV. Methylprednisolone, 40mg, IV. Heparin, infusion, at a rate of 700units/hr, IV was discontinued. NaCl 0.9% , infusion , at a rate of 100 ml/hr. Contrast: Omnipaque 350 50 ml (total dose). Omnipaque 350 150 ml (wasted). Radiation: Fluoroscopy dose: 50.8 cGy. Discharge: The patient tolerated the procedure well and was discharged from the lab in stable condition. Findings Coronary arteries: The coronary circulation is right dominant. Left main: Normal, 0% stenosis. LAD: Mildly calcified. No stenosis. Left circumflex: Normal, 0% stenosis. Right coronary: Normal, 0% stenosis. Hemodynamics: + + + |Stage description |Condition 1 -| + + + |Arterial pressure s/d (m)|135/82 (106) | + + + Prepared and electronically signed by Ovidio Swan MD 09/13/2019 15:51"
[2019-09-13] MEDS: Senna TAB 8.6 mg* TAB PO SCH (17:09)
[2019-09-13] MEDS ORDERED: Amitriptyline TAB* 10 MG PO SCH (18:00)
[2019-09-13] MEDS: methylPREDNISolone SOD 40 MG* 1 ML VIAL IV SCH (20:01)
[2019-09-13] MEDS ORDERED: Melatonin 3 MG TAB PO PRN (20:41)
[2019-09-13] MEDS: Heparin VIAL(*) 5000 UNITS/ML VIAL (FIVE THOUSAND) SUBCUT SCH (22:06)
[2019-09-13] MEDS: Nicotine Patch Removal NOTE FOLLOW UP SCH (22:10)
[2019-09-14] MEDS: Heparin VIAL(*) 5000 UNITS/ML VIAL (FIVE THOUSAND) SUBCUT SCH ×3 (05:27→21:59)
--- NOTE | 2019-09-14 07:08 | CONSULT ---
Consult Consult: [facility] Inpatient Consult Note Date of Consult: 09/14/19 Reason for Consult: hyperthyroidism Reason for Admission: NSTEMI ASSESSMENT: 58 yo F with history of HTN and tobacco use, along with recently- recognized hyperthyroidism, now presenting with 6-8 weeks of hyperthyroid symptoms and dyspnea after starting beta-jose f, found to have elevated troponin on admission with negative coronary cath and reduced EF. Her thyroxine levels are only minimally (<50%) elevated, suggesting resolving (acute) thyroiditis, rather than progressive (chronic) thyroid autonomy. While the best way to distinguish these two clinical entities is with iodine uptake study, this is not possible due to use of iodinated contrast in cath yesterday. Instead , I recommend thyroid autoantibody testing and empiric trial of anti-thyroid drug (methimazole), plus systemic steroid. Non-selective beta-blockers ( propranolol) should be avoided, but selective agents such as atenolol or metoprolol may still be used. PLAN: - check anti-TPO, anti-TG and TSIG - continue methimazole 5mg daily for now - continue IV steroids for now, change to prednisone taper over 10 days ( decrease by 10mg every 2 days) - follow-up with [facility] in coming weeks, as previously scheduled. - call with questions [phone] SUBJECTIVE: History of Present Illness: 58 yo F with limited PMH, now presenting with dyspnea, tremors, palpitations, malaise and weight loss, found to have suppressed TSH, elevated T3/T4 and troponin. See admission note for details. Briefly, she was diagnosed with hyperthyroidism at PCP evaluation and was started on propranolol. While helpful for tremors and anxiety, she noted increased SOB over the past several days, culminating in an episode of acute breathlessness on the morning of admission. Past Medical History: - tobacco use - GERD - back pain - hypertension (recent) - hyperthyroidism (new) Medications Prior to Admission: Amitriptyline TAB* [Elavil TAB*] 20 mg PO QPM 08/24/12 [History Confirmed ] Betamethasone Dipropionate [Betamethasone Dipropionat] 0.05 % EX BID PRN [History Confirmed 09/13/19] Carisoprodol TAB* [Soma TAB*] 350 mg PO QID PRN 08/24/12 [History Confirmed 02/26] Esomeprazole Magnesium [Nexium] 60 mg PO BID 08/24/12 [History Confirmed ] Sennakots 3 tab PO QPM 08/24/12 [History Confirmed 09/13/19] traMADol TAB* [Ultram*] 50 mg PO Q6H PRN 08/24/12 [History Confirmed 09/13/19] Colestipol (NF) 1 gm PO BID 01/07/18 [History Confirmed 09/13/19] Morphine Sulfate [Morphine Sulfate ER] 60 mg PO QAM 01/07/18 [History Confirmed 09/13/19] celeCOXIB CAP* [CeleBREX CAP*] 200 mg PO BID 01/07/18 [History Confirmed ] Propranolol HCl 10 mg PO BID 09/13/19 [History Confirmed 09/13/19] Inpatient Medications: Acetaminophen (Tylenol Tab*) 650 mg PO Q4H PRN PRN Reason: PAIN - MILD Albuterol/Ipratropium (Duoneb (Albuterol 2.5 Mg/Ipratropium 0.5 Mg)) 1 neb INH Q4H PRN PRN Reason: SOB/WHEEZING Last Admin: 09/13/19 10:48 Dose: 1 neb Amitriptyline HCl (Elavil Tab*) 20 mg PO BEDTIME [facility] Aspirin (Aspirin Ec Tab*) 81 mg PO DAILY [facility] Last Admin: 09/13/19 12:42 Dose: 81 mg Carisoprodol (Soma Tab*) 350 mg PO QID PRN PRN Reason: PAIN Celecoxib (Celebrex Cap*) 200 mg PO BID COUNT [facility]CLUDES [facility] Last Admin: 09/13/19 20:00 Dose: 200 mg Colestipol HCl (Colestipol (Nf)) 1 gm PO BID@0000,1200 [facility]; Protocol Last Admin: 09/13/19 23:57 Dose: 1 gm Diazepam (Valium Tab(*)) 2.5 mg PO ONCE PRN PRN Reason: pharmacy intake technician to [employer] Diltiazem HCl (Cardizem Cd Cap*) 120 mg PO DAILY COUNT [facility]CLUDES [facility] Diphenhydramine HCl (Benadryl Po*) 25 mg PO ONCE PRN PRN Reason: pharmacy intake technician to [employer] Heparin Sodium (Porcine) (Heparin Vial(*)) 5,000 units SUBCUT Q8HR COUNT [facility]CLUD[facility] Last Admin: 09/14/19 05:27 Dose: 5,000 units Melatonin (Melatonin) 3 mg PO BEDTIME PRN PRN Reason: INSOMNIA Last Admin: 09/13/19 22:01 Dose: 3 mg Methimazole (Tapazole Tab*) 5 mg PO DAILY [facility] Last Admin: 09/13/19 12:42 Dose: 5 mg Methylprednisolone Sodium Succinate (Solu-Medrol 40 Mg) 40 mg IV 0800,1999 [facility] Last Admin: 09/13/19 20:01 Dose: 40 mg Morphine Sulfate (Ms Contin(*)) 60 mg PO QAM COUNT [facility]CLUDES [facility] Last Admin: 09/13/19 12:42 Dose: 60 mg Nicotine (Nicotine Patch 14 Mg/24 Hr*) 1 patch TRANSDERM DAILY COUNT [facility]CLUD[facility] Last Admin: 09/13/19 12:43 Dose: 1 patch Nitroglycerin (Nitroglycerin Tab 0.4 Mg*) 0.4 mg SL Q5M PRN PRN Reason: ANGINA Last Admin: 09/13/19 09:00 Dose: 0.4 mg Pantoprazole Sodium (Protonix Tab*) 40 mg PO BID COUNT [facility]CLUD[facility] Last Admin: 09/13/19 20:01 Dose: 40 mg Pharmacy Profile Note (Nicotine Patch Removal Note*) 1 note FOLLOW UP 2100 COUNT [facility]CLUDES [facility] Last Admin: 09/13/19 22:10 Dose: 1 note Senna (Senokot 8.6 Mg Tab*) 3 tab PO QPM COUNT [facility]ES [facility] Last Admin: 09/13/19 17:09 Dose: 3 tab Tramadol HCl (Ultram*) 50 mg PO Q6H PRN PRN Reason: PAIN Last Admin: 09/13/19 15:18 Dose: 50 mg Allergies/Intolerances: Social History: No significant alcohol, tobacco or drug use. Lives alone. Disabled. Family History: No thyroid or other autoimmune disorders. Review of Systems: As above. 12 system review is otherwise negative. OBJECTIVE: Temp Pulse Resp BP Pulse Ox 97.9 F 107 16 100/57 95 09/14/19 03:15 09/14/19 03:15 09/14/19 03:15 09/14/19 03:15 09/14/19 03:15 General: alert, pleasant, oriented, no distress ENT: neck supple, no thyromegaly, bedside ultrasound reveal substernal thyroid without enlargement, no bruit is heard Chest: CTAB, no wheezing or crackles CV: RRR, no murmur Abdomen: soft, non-tender Extremities: no edema, distal pulses intact Skin: warm, dry, no rash Neuro: grossly intact motor/sensory in extremities Psych: restricted affect, pleasant Labs: WBC 8.3 10^3/uL (3.5-10.8) 09/13/19 05:13 RBC 4.48 10^6 /uL (3.70-4.87) 09/13/19 05:13 Hgb 13.7 g/dL (12.0-16.0) 09/13/19 05:13 Hct 40 % (35-47) 09/13/19 05:13 MCV 90 fL (80-97) 09/13/19 05:13 MCH 31 pg (27-31) 09/13/19 05:13 MCHC 34 g/dL (31-36) 09/13/19 05:13 RDW 12 % (10-15) 09/13/19 05:13 Plt Count 267 10^3/uL (150-450) 09/13/19 05:13 MPV 8.1 fL (7.4-10.4) 09/13/19 05:13 Neut % (Auto) 72.0 % 09/13/19 05:13 Lymph % (Auto) 19.8 % 09/13/19 05:13 Coffey % (Auto) 5.3 % 09/13/19 05:13 Eos % (Auto) 2.8 % 09/13/19 05:13 Baso % (Auto) 0.1 % 09/13/19 05:13 Absolute Neuts (auto) 6.0 10^3/ul (1.5-7.7) 09/13/19 05:13 Absolute Lymphs (auto) 1.6 10^3/ul (1.0-4.8) 09/13/19 05:13 Absolute Monos (auto) 0.4 10^3/ul (0-0.8) 09/13/19 05:13 Absolute Eos (auto) 0.2 10^3/ul (0-0.6) 09/13/19 05:13 Absolute Basos (auto) 0.0 10^3/ul (0-0.2) 09/13/19 05:13 Absolute Nucleated RBC 0.0 10^3/ul 09/13/19 05:13 Nucleated RBC % 0.0 09/13/19 05:13 INR (Anticoag Therapy) 1.25 (0.82-1.09) H 09/13/19 11:17 APTT 128.0 seconds (26.0-38.0) H* 09/13/19 11:17 D-Dimer, Quantitative < 200 ng/mL (Less Than 230) 09/13/19 05:13 VBG pH 7.32 (7.32-7.43) 09/13/19 05:20 VBG pCO2 45 mmHg (41-51) 09/13/19 05:20 VBG pO2 95.0 mmHg (35-45) H 09/13/19 05:20 VBG HCO3 22.5 mmol/L (24-28) L 09/13/19 05:20 VBG O2 Saturation 99.0 % (70-80) H 09/13/19 05:20 VBG Base Excess -3.1 mmol/L (0.0-4.0) L 09/13/19 05:20 Sodium 143 mmol/L (135-145) 09/13/19 05:13 Potassium 3.8 mmol/L (3.5-5.0) 09/13/19 05:13 Chloride 113 mmol/L (101-111) H 09/13/19 05:13 Carbon Dioxide 23 mmol/L (22-32) 09/13/19 05:13 Anion Gap 7 mmol/L (2-11) 09/13/19 05:13 BUN 5 mg/dL (6-24) L 09/13/19 05:13 Creatinine 0.53 mg/dL (0.51-0.95) 09/13/19 05:13 Est GFR ( Amer) 143.4 (>60) 09/13/19 05:13 Est GFR (Non-Af Amer) 118.5 (>60) 09/13/19 05:13 BUN/Creatinine Ratio 9.4 (8-20) 09/13/19 05:13 Glucose 128 mg/dL (70-100) H 09/13/19 05:13 Calcium 8.4 mg/dL (8.6-10.3) L 09/13/19 05:13 Total Bilirubin 0.30 mg/dL (0.2-1.0) 09/13/19 05:13 AST 59 U/L (13-39) H 09/13/19 05:13 ALT 35 U/L (7-52) 09/13/19 05:13 Alkaline Phosphatase 127 U/L (34-104) H 09/13/19 05:13 Total Creatine Kinase 87 U/L (10-223) 09/13/19 08:10 CK-MB (CK-2) 10.7 ng/mL (0.6-6.3) H 09/13/19 08:10 Troponin I 0.50 ng/mL (<0.04) H* 09/13/19 11:17 B-Natriuretic Peptide 133 pg/mL (<=100) H 09/13/19 05:13 Total Protein 5.4 g/dL (6.4-8.9) L 09/13/19 05:13 Albumin 3.7 g/dL (3.2-5.2) 09/13/19 05:13 Globulin 1.7 g/dL (2-4) L 09/13/19 05:13 Albumin/Globulin Ratio 2.2 (1-3) 09/13/19 05:13 Triglycerides 112 mg/dL 09/14/19 05:04 Cholesterol 210 mg/dL 09/14/19 05:04 LDL Cholesterol 126 mg/dL 09/14/19 05:04 HDL Cholesterol 62.0 mg/dL 09/14/19 05:04 TSH 0.00 mcIU/mL (0.34-5.60) L 09/13/19 05:13 Free T4 1.51 ng/dL (0.61-1.12) H 09/13/19 05:13 Total T3 194 ng/dL (87-178) H 09/13/19 05:13 Blood Type O Positive 09/13/19 05:13 Antibody Screen Negative 09/13/19 05:13
[2019-09-14] MEDS: Methimazole TAB* 5 MG PO SCH (09:12)
[2019-09-14] MEDS: Nicotine PATCH 14 MG/24 HR* PATCH TRANSDERM SCH (09:13)
[2019-09-14] MEDS: methylPREDNISolone SOD 40 MG* 1 ML VIAL IV SCH ×2 (09:13→20:54)
[2019-09-14] MEDS: Metoprolol Tartrate TAB* 25 MG PO SCH ×2 (09:13→20:55)
[2019-09-14] MEDS: Morphine TAB Extended Release (*) 30 MG TAB.ER PO SCH (09:14)
[2019-09-14] MEDS: Aspirin EC TAB* 81 MG TAB.EC PO SCH (09:15)
[2019-09-14] MEDS: Pantoprazole TAB * 40 MG TAB PO SCH ×2 (09:15→20:52)
[2019-09-14] MEDS: celeCOXIB CAP* 200 MG PO SCH ×2 (09:15→20:55)
--- NOTE | 2019-09-14 09:32 | PN ---
Subjective Date of Service: 09/14/19 - shf, newly diagnosed hyperthyroid Interval History: No events last night, states breathing has improved. no c/o chest pain, palpitations, groin access pain, dizziness. Family is at bedside Medications Active Medications: Acetaminophen (Tylenol Tab*) 650 mg PO Q4H PRN PRN Reason: PAIN - MILD Albuterol/Ipratropium (Duoneb (Albuterol 2.5 Mg/Ipratropium 0.5 Mg)) 1 neb INH Q4H PRN PRN Reason: SOB/WHEEZING Last Admin: 09/13/19 10:48 Dose: 1 neb Amitriptyline HCl (Elavil Tab*) 20 mg PO BEDTIME [facility] Aspirin (Aspirin Ec Tab*) 81 mg PO DAILY [facility] Last Admin: 09/14/19 09:15 Dose: 81 mg Carisoprodol (Soma Tab*) 350 mg PO QID PRN PRN Reason: PAIN Celecoxib (Celebrex Cap*) 200 mg PO BID [facility] Last Admin: 09/14/19 09:15 Dose: 200 mg Colestipol HCl (Colestipol (Nf)) 1 gm PO BID@0000,1200 [facility]; Protocol Last Admin: 09/13/19 23:57 Dose: 1 gm Heparin Sodium (Porcine) (Heparin Vial(*)) 5,000 units SUBCUT Q8HR [facility] Last Admin: 09/14/19 05:27 Dose: 5,000 units Melatonin (Melatonin) 3 mg PO BEDTIME PRN PRN Reason: INSOMNIA Last Admin: 09/13/19 22:01 Dose: 3 mg Methimazole (Tapazole Tab*) 5 mg PO DAILY [facility] Last Admin: 09/14/19 09:12 Dose: 5 mg Methylprednisolone Sodium Succinate (Solu-Medrol 40 Mg) 40 mg IV 0800,2000 [facility] Last Admin: 09/14/19 09:13 Dose: 40 mg Metoprolol Tartrate (Lopressor Tab*) 12.5 mg PO Q12HR [facility] Last Admin: 09/14/19 09:13 Dose: 12.5 mg Morphine Sulfate (Ms Contin(*)) 60 mg PO QAM [facility] Last Admin: 09/14/19 09:14 Dose: 60 mg Nicotine (Nicotine Patch 14 Mg/24 Hr*) 1 patch TRANSDERM DAILY [facility] Last Admin: 09/14/19 09:13 Dose: 1 patch Nitroglycerin (Nitroglycerin Tab 0.4 Mg*) 0.4 mg SL Q5M PRN PRN Reason: ANGINA Last Admin: 09/13/19 09:00 Dose: 0.4 mg Pantoprazole Sodium (Protonix Tab*) 40 mg PO BID [facility] Last Admin: 09/14/19 09:15 Dose: 40 mg Pharmacy Profile Note (Nicotine Patch Removal Note*) 1 note FOLLOW UP 2100 [facility] Last Admin: 09/13/19 22:10 Dose: 1 note Senna (Senokot 8.6 Mg Tab*) 3 tab PO QPM [facility] Last Admin: 09/13/19 17:09 Dose: 3 tab Tramadol HCl (Ultram*) 50 mg PO Q6H PRN PRN Reason: PAIN Last Admin: 09/13/19 15:18 Dose: 50 mg Objective Vital Signs: Temp Pulse Resp BP Pulse Ox 98.0 F 106 24 125/67 96 09/14/19 07:15 09/14/19 07:15 09/14/19 09:14 09/14/19 07:15 09/14/19 07:15 Oxygen Devices in Use Now: Nasal Cannula Appearance: sitting upright in bed, + SOB, + diaphoresis. A+Ox3 Eyes: No Scleral Icterus, PERRLA Ears/Nose/Mouth/Throat: NL Teeth, Lips, Gums, Clear Oropharnyx, Mucous Membranes Moist Neck: NL Appearance and Movements; NL JVP, Trachea Midline Respiratory: - - + inspiratory expiratory wheezes. No retractions. Cardiovascular: No Edema, - - Tachycardic S1, S2, RRR. No murmur. No gallop Extremities: - - Right groin access dressing was removed. Strong right femoral pulse palpated. Strong right dorsalis pedis palpated. no thrill, non tender to palpation, no heamtoma. Skin: No Rash or Ulcers Neurological: Alert and Oriented x 3 Lines/Tubes/Other Access: Clean, Dry and Intact Peripheral IV Laboratory Results: 09/13/19 05:13 09/13/19 05:13 INR (Anticoag Therapy) 1.25 (0.82-1.09) H 09/13/19 11:17 APTT 128.0 seconds (26.0-38.0) H* 09/13/19 11:17 Total Bilirubin 0.30 mg/dL (0.2-1.0) 09/13/19 05:13 AST 59 U/L (13-39) H 09/13/19 05:13 ALT 35 U/L (7-52) 09/13/19 05:13 Alkaline Phosphatase 127 U/L (34-104) H 09/13/19 05:13 CK-MB (CK-2) 10.7 ng/mL (0.6-6.3) H 09/13/19 08:10 B-Natriuretic Peptide 133 pg/mL (<=100) H 09/13/19 05:13 Total Protein 5.4 g/dL (6.4-8.9) L 09/13/19 05:13 Albumin 3.7 g/dL (3.2-5.2) 09/13/19 05:13 Globulin 1.7 g/dL (2-4) L 09/13/19 05:13 Albumin/Globulin Ratio 2.2 (1-3) 09/13/19 05:13 Triglycerides 112 mg/dL 09/14/19 05:04 Cholesterol 210 mg/dL 09/14/19 05:04 LDL Cholesterol 126 mg/dL 09/14/19 05:04 HDL Cholesterol 62.0 mg/dL 09/14/19 05:04 TSH 0.00 mcIU/mL (0.34-5.60) L 09/13/19 05:13 09/13/19 09/13/19 09/13/19 05:13 08:10 11:17 Troponin I 0.34 H* 1.13 H* 0.50 H* Laboratory Results - last 24 hr 09/13/19 09/13/19 09/13/19 05:13 05:13 08:10 INR (Anticoag Therapy) APTT Hemoglobin A1c Total Creatine Kinase 63 87 CK-MB (CK-2) 5.8 10.7 H Troponin I Triglycerides Cholesterol LDL Cholesterol HDL Cholesterol Blood Type O Positive Antibody Screen Negative 09/13/19 09/13/19 09/13/19 08:10 11:17 11:17 INR (Anticoag Therapy) 0.91 1.25 H APTT 128.0 H* Hemoglobin A1c Total Creatine Kinase CK-MB (CK-2) Troponin I 0.50 H* Triglycerides 50 Cholesterol 79 LDL Cholesterol 44 HDL Cholesterol 25.5 Blood Type Antibody Screen 09/14/19 09/14/19 05:04 05:43 INR (Anticoag Therapy) APTT Hemoglobin A1c 5.2 Total Creatine Kinase CK-MB (CK-2) Troponin I Triglycerides 112 Cholesterol 210 LDL Cholesterol 126 HDL Cholesterol 62.0 Blood Type Antibody Screen Diagnostic Imaging: Echo 09/13/2019; Per report LVEF 30-35%, + hypokinesis of mid apical, anteroseptal, anterior, mid inferoseptal and inferior regions. Mild MR. , trace to mild TR, trace OR [facility] 09/13/[address] Swan no obstructive CAD. EKG Data: ECG 09/13/2019; Sinus tachycardia rate 114. Telemetry; Sinus tachycardia rate 100-130 with occasional PVCs. no VT. Assessment/Plan #1 Newly diagnosed SHF; LVEF 30-35% 09/13/2019 echo. [facility] did not reveal obstructive CAD. ? Takotsubo cardiomyopathy. Will d/c CCB. RX Lopressor 12.5mg PO BID. Appreciate endocrine consult. Given ongoing tachycardia I would like to optimize cardioselective bblocker before adding ACEI to regimen. She is still tachypnenic however, adds SOB has improved with steroids. Would not consider lifevest at this point given tachycardia and risk for in appropriate output. Data for lifevest in non ischemic cardiomyopathy is not as compelling as ischemic cardiomyopathy. #2 Newly diagnosed hyperthyroidism; Endocrine and primary team managing. Appreciate consult. Noted adding cardioselective bblocker was reasonable. #3 h/o HTN; Currenlty normotensive with periods of hypotension. On Lopressor therapy. #4 Troponin elevation; peaked on 09/13/2019 at 1.1 with + WMA noted on echo. s/p C 09/13/[address] Swan no obstructive CAD. Right femoral access site was examined no thrill, no hematoma. Dressing removed. On ASA 81/day. Will speak with Dr. Swan about adding Plavix 75 mg/day for short duration of time. It was felt that SHF was related to takotsubo cardiomyopathy. #5 HLD ; LDL 126; goal LDL < 100. Had alk phos and AST minimal elevation. Would recommend statin therapy if felt safe to initiate by primary team. #6 Disposition pending course. Patient full code. will follow and optimize CHF medication according to response. Will speak with Dr. Swan about whether or not he feels compelled to do short course of DAPT therapy. Attending: Ovidio Swan
[2019-09-14] MEDS ORDERED: Diltiazem CD CAP* 120 MG PO SCH (10:30)
[2019-09-14] MEDS: COLESTIPOL 1 GM PO SCH ×2 (13:26→23:47)
[2019-09-14] MEDS ORDERED: Metoprolol Tartrate IV* 1 MG/ML 5 ML VIAL IV ONE (16:27)
[2019-09-14] MEDS: Senna TAB 8.6 mg* TAB PO SCH (16:44)
[2019-09-14] MEDS: traMADol TAB* 50 MG PO PRN (16:56)
--- NOTE | 2019-09-14 17:05 | PN ---
Subjective Date of Service: 09/14/19 Interval History: Ms. Altamirano believes that her breathing is improved, although she is still requiring supplemental O2. She notes that she had started propranolol for tremors approximately 4d ago and then developed SOB. She reports sore throat, runny nose for last approximately 3 days. She continues to have tremors in UE, which she follows with PCP for. She denies CP, cough, fever/chills. No other complaints today. Objective Active Medications: Acetaminophen (Tylenol Tab*) 650 mg PO Q4H PRN PRN Reason: PAIN - MILD Albuterol/Ipratropium (Duoneb (Albuterol 2.5 Mg/Ipratropium 0.5 Mg)) 1 neb INH Q4H PRN PRN Reason: SOB/WHEEZING Last Admin: 09/13/19 10:48 Dose: 1 neb Amitriptyline HCl (Elavil Tab*) 20 mg PO BEDTIME [facility] Aspirin (Aspirin Ec Tab*) 81 mg PO DAILY [facility] Last Admin: 09/14/19 09:15 Dose: 81 mg Carisoprodol (Soma Tab*) 350 mg PO QID PRN PRN Reason: PAIN Celecoxib (Celebrex Cap*) 200 mg PO BID [facility] Last Admin: 09/14/19 09:15 Dose: 200 mg Colestipol HCl (Colestipol (Nf)) 1 gm PO BID@0000,1200 [facility]; Protocol Last Admin: 09/14/19 13:26 Dose: 1 gm Heparin Sodium (Porcine) (Heparin Vial(*)) 5,000 units SUBCUT Q8HR [facility] Last Admin: 09/14/19 13:26 Dose: 5,000 units Melatonin (Melatonin) 3 mg PO BEDTIME PRN PRN Reason: INSOMNIA Last Admin: 09/13/19 22:01 Dose: 3 mg Methimazole (Tapazole Tab*) 5 mg PO DAILY [facility] Last Admin: 09/14/19 09:12 Dose: 5 mg Methylprednisolone Sodium Succinate (Solu-Medrol 40 Mg) 40 mg IV 0800,2000 [facility] Last Admin: 09/14/19 09:13 Dose: 40 mg Metoprolol Tartrate (Lopressor Tab*) 12.5 mg PO Q12HR [facility] Last Admin: 09/14/19 09:13 Dose: 12.5 mg Morphine Sulfate (Ms Contin(*)) 60 mg PO QAM [facility] Last Admin: 09/14/19 09:14 Dose: 60 mg Nicotine (Nicotine Patch 14 Mg/24 Hr*) 1 patch TRANSDERM DAILY [facility] Last Admin: 09/14/19 09:13 Dose: 1 patch Nitroglycerin (Nitroglycerin Tab 0.4 Mg*) 0.4 mg SL Q5M PRN PRN Reason: ANGINA Last Admin: 09/13/19 09:00 Dose: 0.4 mg Pantoprazole Sodium (Protonix Tab*) 40 mg PO BID [facility] Last Admin: 09/14/19 09:15 Dose: 40 mg Pharmacy Profile Note (Nicotine Patch Removal Note*) 1 note FOLLOW UP 2100 [facility] Last Admin: 09/13/19 22:10 Dose: 1 note Senna (Senokot 8.6 Mg Tab*) 3 tab PO QPM [facility] Last Admin: 09/14/19 16:44 Dose: 3 tab Tramadol HCl (Ultram*) 50 mg PO Q6H PRN PRN Reason: PAIN Last Admin: 09/14/19 16:56 Dose: 50 mg Vital Signs: Temp Pulse Resp BP Pulse Ox 97.9 F 130 18 141/82 95 09/14/19 15:15 09/14/19 16:44 09/14/19 16:56 09/14/19 16:44 09/14/19 15:15 Oxygen Devices in Use Now: Nasal Cannula Appearance: Ms. Altamirano is a middle-aged white woman who is sitting up in bed. There is no increased work of breathing; she has supp O2 in place. No acute distress. Eyes: No Scleral Icterus, PERRLA Ears/Nose/Mouth/Throat: NL Teeth, Lips, Gums, Clear Oropharnyx, - - Dry oral mucosa Neck: NL Appearance and Movements; NL JVP, Trachea Midline Respiratory: Symmetrical Chest Expansion and Respiratory Effort, - - Decreased air exchange without rhonchi, wheeze, rales. Cardiovascular: NL Sounds; No Murmurs; No JVD, No Edema, - - Sinus tachycardia Abdominal: NL Sounds; No Tenderness; No Distention, No Hepatosplenomegaly Extremities: No Edema, No Clubbing, Cyanosis Neurological: Alert and Oriented x 3, NL Muscle Strength and Tone, - - B/l UE tremor noted Result Diagrams: 09/13/19 05:13 09/13/19 05:13 Microbiology and Other Data: Microbiology 09/13/19 11:17 Nasal Screen MRSA (PCR) - Final Nasal Mrsa Not Detected Assess/Plan/Problems-Billing Assessment: Ms. Altamirano is a 58 yof PMHx chronic back pain, possible COPD who presents to the ER with SOB, cold symptoms, elevated troponin and hyperparathyroidism. - Patient Problems (1) Acute respiratory failure with hypoxia Comment: -pt presents with SOB, acute need for supp O2 to maintain O2 sat -likely multifactorial: -non-selective BB propranolol for hyperthyroid d/c, cont metoprolol with good results -likely undx COPD with exacerbation: continue steroids -acute HF may have lead to pulmonary edema although lung exam CTAB with decreased air exchange -Wean from O2 as able (2) Nonischemic cardiomyopathy Comment: -pt presents with elevated troponin, rEF 30-35%, no anginal symptoms -likely Takutsobu -cardiology consulting; thank you for recommendations -metoprolol tart 12.5 PO BID; increase as necessary to achieve HR control -may add ACEi in future -card would not consider LifeVest at this time (3) Elevated troponin Comment: -peak 1.13, then trending down -echo shows WMA, EF 30-35% -heart cath shows no CAD -continue asa 81 daily -will add plavix if deemed appropriate by cardiology team (4) COPD (chronic obstructive pulmonary disease) Comment: -patient with approx 30-year pack history; likely undiagnosed COPD -prednisone IV, then plan for taper -breathing improving with switch from propranolol to selective BB -continue inhalers (5) Hyperthyroidism Comment: -hyperparathyroidism with TSH 0.00; FT4 1.51; total T3 194 -suggestive of resolving acute thyroiditis -thyroid autoantibodies testing pending -continue methimazole 5mg PO daily -IV steroid with transition to PO taper over 10 days -follow up outpatient with Dr. Esparza as scheduled (6) Tachycardia Comment: -SOB with sinus tachycardia -VQ scan low probability for PE -likely related to hyperthyroidism -continue selective BB metoprolol and monitor for improvement (7) Hyperlipidemia Comment: -LDL 126 -will discuss addition of statin with patient (8) Tobacco abuse Comment: -nicotine patch (9) Chronic back pain Comment: -continue home medications (10) DVT prophylaxis Comment: -Heparin SQ (11) Full code status Status and Disposition: Inpatient. Discharge when stable.
[2019-09-14] MEDS: Amitriptyline TAB* 10 MG PO SCH (20:52)
[2019-09-14] MEDS: Nicotine Patch Removal NOTE FOLLOW UP SCH (20:54)
[2019-09-14] MEDS: Benzonatate CAP* 100 MG PO PRN (21:59)
[2019-09-15] MEDS: Heparin VIAL(*) 5000 UNITS/ML VIAL (FIVE THOUSAND) SUBCUT SCH ×3 (05:33→23:03)
[2019-09-15 07:17] LABS: ABS Lymphocytes 1.6 10^3/ul (1.0-4.8); ABS Monocytes 0.3 10^3/ul (0-0.8); ABS Neutrophils 7.6 10^3/ul (1.5-7.7); Hematocrit 39 % (35-47); Hemoglobin 13.2 g/dL (12.0-16.0); Mean Corpuscular HGB Conc 34 g/dL (31-36); Mean Corpuscular Hemoglobin 31 pg (27-31); Mean Corpuscular Volume 90 fL (80-97); Mean Platelet Volume 8.5 fL (7.4-10.4); Platelet Count 286 10^3/uL (150-450); Red Cell Distribution Width 12 % (10-15); White Blood Count 9.6 10^3/uL (3.5-10.8)
[2019-09-15 07:32] LABS: BUN/Creatinine Ratio 40.4 (8-20); Calcium 9.7 mg/dL (8.6-10.3); EGFR African American 146.6 (>60); EGFR Non-African American 121.1 (>60); Potassium 4.2 mmol/L (3.5-5.0)
[2019-09-15] MEDS: Methimazole TAB* 5 MG PO SCH (08:26)
[2019-09-15] MEDS: Morphine TAB Extended Release (*) 30 MG TAB.ER PO SCH (08:26)
[2019-09-15] MEDS: Aspirin EC TAB* 81 MG TAB.EC PO SCH (08:26)
[2019-09-15] MEDS: celeCOXIB CAP* 200 MG PO SCH ×2 (08:26→22:56)
[2019-09-15] MEDS: methylPREDNISolone SOD 40 MG* 1 ML VIAL IV SCH ×2 (08:27→19:28)
[2019-09-15] MEDS: Pantoprazole TAB * 40 MG TAB PO SCH ×2 (08:27→22:57)
[2019-09-15] MEDS: Nicotine PATCH 14 MG/24 HR* PATCH TRANSDERM SCH (08:27)
--- NOTE | 2019-09-15 08:39 | PN ---
<RenettaEleonora - Last Filed: 09/15/19 10:18> Subjective Date of Service: 09/15/19 - Troponin elevation, Takotsubo Interval History: No events last night, states breathing has improved. no c/o chest pain, palpitations, groin access pain, dizziness.She is sitting in chair reading paper. Reports cough and wheezing Medications Active Medications: Acetaminophen (Tylenol Tab*) 650 mg PO Q4H PRN PRN Reason: PAIN - MILD Albuterol/Ipratropium (Duoneb (Albuterol 2.5 Mg/Ipratropium 0.5 Mg)) 1 neb INH Q4H PRN PRN Reason: SOB/WHEEZING Last Admin: 09/13/19 10:48 Dose: 1 neb Amitriptyline HCl (Elavil Tab*) 20 mg PO BEDTIME [facility] Last Admin: 09/14/19 20:52 Dose: 20 mg Aspirin (Aspirin Ec Tab*) 81 mg PO DAILY [facility] Last Admin: 09/15/19 08:26 Dose: 81 mg Benzonatate (Tessalon Cap*) 100 mg PO BID PRN PRN Reason: COUGH Last Admin: 09/14/19 21:59 Dose: 100 mg Carisoprodol (Soma Tab*) 350 mg PO QID PRN PRN Reason: PAIN Celecoxib (Celebrex Cap*) 200 mg PO BID [facility] Last Admin: 09/15/19 08:26 Dose: 200 mg Colestipol HCl (Colestipol (Nf)) 1 gm PO BID@0000,1200 [facility]; Protocol Last Admin: 09/14/19 23:47 Dose: 1 gm Heparin Sodium (Porcine) (Heparin Vial(*)) 5,000 units SUBCUT Q8HR [facility] Last Admin: 09/15/19 05:33 Dose: 5,000 units Melatonin (Melatonin) 3 mg PO BEDTIME PRN PRN Reason: INSOMNIA Last Admin: 09/13/19 22:01 Dose: 3 mg Methimazole (Tapazole Tab*) 5 mg PO DAILY [facility] Last Admin: 09/15/19 08:26 Dose: 5 mg Methylprednisolone Sodium Succinate (Solu-Medrol 40 Mg) 40 mg IV 0800,2000 [facility] Last Admin: 09/15/19 08:27 Dose: 40 mg Metoprolol Tartrate (Lopressor Tab*) 25 mg PO Q12HR [facility] Last Admin: 09/15/19 08:26 Dose: 25 mg Morphine Sulfate (Ms Contin(*)) 60 mg PO QAM [facility] Last Admin: 09/15/19 08:26 Dose: 60 mg Nicotine (Nicotine Patch 14 Mg/24 Hr*) 1 patch TRANSDERM DAILY [facility] Last Admin: 09/15/19 08:27 Dose: 1 patch Nitroglycerin (Nitroglycerin Tab 0.4 Mg*) 0.4 mg SL Q5M PRN PRN Reason: ANGINA Last Admin: 09/13/19 09:00 Dose: 0.4 mg Pantoprazole Sodium (Protonix Tab*) 40 mg PO BID [facility] Last Admin: 09/15/19 08:27 Dose: 40 mg Pharmacy Profile Note (Nicotine Patch Removal Note*) 1 note FOLLOW UP 2100 [facility] Last Admin: 09/14/19 20:54 Dose: 1 note Senna (Senokot 8.6 Mg Tab*) 3 tab PO QPM [facility] Last Admin: 09/14/19 16:44 Dose: 3 tab Tramadol HCl (Ultram*) 50 mg PO Q6H PRN PRN Reason: PAIN Last Admin: 09/14/19 16:56 Dose: 50 mg Objective Vital Signs: Temp Pulse Resp BP Pulse Ox 97.6 F 102 22 122/65 97 09/15/19 07:15 09/15/19 07:15 09/15/19 08:26 09/15/19 07:15 09/15/19 07:15 Oxygen Devices in Use Now: Nasal Cannula Appearance: sitting upright in chair, + SOB. A+Ox3 appears more conformatable today in regards to breathing effort Eyes: No Scleral Icterus, PERRLA Ears/Nose/Mouth/Throat: NL Teeth, Lips, Gums, Clear Oropharnyx, Mucous Membranes Moist Neck: NL Appearance and Movements; NL JVP, Trachea Midline Respiratory: - - + inspiratory expiratory wheezes. No retractions. Cardiovascular: No Edema, - - Tachycardic S1, S2, RRR. No murmur. No gallop Extremities: - - Right groin access dressing was removed. Strong right femoral pulse palpated. Strong right dorsalis pedis palpated. no thrill, non tender to palpation, no heamtoma. Skin: No Rash or Ulcers Neurological: Alert and Oriented x 3 Lines/Tubes/Other Access: Clean, Dry and Intact Peripheral IV Laboratory Results: 09/15/19 06:22 09/15/19 06:22 INR (Anticoag Therapy) 1.25 (0.82-1.09) H 09/13/19 11:17 APTT 128.0 seconds (26.0-38.0) H* 09/13/19 11:17 Total Bilirubin 0.30 mg/dL (0.2-1.0) 09/13/19 05:13 AST 59 U/L (13-39) H 09/13/19 05:13 ALT 35 U/L (7-52) 09/13/19 05:13 Alkaline Phosphatase 127 U/L (34-104) H 09/13/19 05:13 CK-MB (CK-2) 10.7 ng/mL (0.6-6.3) H 09/13/19 08:10 B-Natriuretic Peptide 133 pg/mL (<=100) H 09/13/19 05:13 Total Protein 5.4 g/dL (6.4-8.9) L 09/13/19 05:13 Albumin 3.7 g/dL (3.2-5.2) 09/13/19 05:13 Globulin 1.7 g/dL (2-4) L 09/13/19 05:13 Albumin/Globulin Ratio 2.2 (1-3) 09/13/19 05:13 Triglycerides 112 mg/dL 09/14/19 05:04 Cholesterol 210 mg/dL 09/14/19 05:04 LDL Cholesterol 126 mg/dL 09/14/19 05:04 HDL Cholesterol 62.0 mg/dL 09/14/19 05:04 TSH 0.00 mcIU/mL (0.34-5.60) L 09/13/19 05:13 09/13/19 09/13/19 09/13/19 05:13 08:10 11:17 Troponin I 0.34 H* 1.13 H* 0.50 H* Laboratory Results - last 24 hr 09/14/19 09/15/19 09/15/19 05:43 06:22 06:22 WBC 9.6 RBC 4.30 Hgb 13.2 Hct 39 MCV 90 MCH 31 MCHC 34 RDW 12 Plt Count 286 MPV 8.5 Neut % (Auto) 79.7 Lymph % (Auto) 17.0 [place] % (Auto) 3.3 Eos % (Auto) 0.0 Baso % (Auto) 0.0 Absolute Neuts (auto) 7.6 Absolute Lymphs (auto) 1.6 Absolute Monos (auto) 0.3 Absolute Eos (auto) 0.0 Absolute Basos (auto) 0.0 Absolute Nucleated RBC 0.0 Nucleated RBC % 0.0 Sodium 141 Potassium 4.2 Chloride 107 Carbon Dioxide 29 Anion Gap 5 BUN 21 Creatinine 0.52 Est GFR ( Amer) 146.6 Est GFR (Non-Af Amer) 121.1 BUN/Creatinine Ratio 40.4 H Glucose 122 H Hemoglobin A1c 5.2 Calcium 9.7 Diagnostic Imaging: Echo 09/13/2019; Per report LVEF 30-35%, + hypokinesis of mid apical, anteroseptal, anterior, mid inferoseptal and inferior regions. Mild MR. , trace to mild TR, trace HI LHC 09/13/[address] Swan no obstructive CAD. EKG Data: ECG 09/13/2019; Sinus tachycardia rate 114. Telemetry; Sinus tachycardia rate 100-120 with occasional PVCs. no VT. Assessment/Plan #1 Newly diagnosed SHF; LVEF 30-35% 09/13/2019 echo. LHC did not reveal obstructive CAD. ? Takotsubo cardiomyopathy. On Lopressor 25mg Po BID. Will increase to TID dosing to help lower heart rate. Appreciate endocrine consult. Given ongoing tachycardia I would like to optimize cardioselective bblocker before adding ACEI to regimen. She is still tachypnenic however, adds SOB has improved with steroids. Would not consider lifevest at this point given tachycardia and risk for in appropriate output. Data for lifevest in non ischemic cardiomyopathy is not as compelling as ischemic cardiomyopathy. #2 Newly diagnosed hyperthyroidism; Endocrine and primary team managing. Appreciate consult. Noted adding cardioselective bblocker was reasonable. #3 h/o HTN; Currently normotensive on Lopressor therapy. #4 Troponin elevation; peaked on 09/13/2019 at 1.1 with + WMA noted on echo. s/p LHC 09/13/[address] Swan no obstructive CAD. Right femoral access site was examined no thrill, no hematoma. On ASA 81/day. Will add Plavix and recommend DAPT x30 days then stop Plavix and continue ASA 81/day. #5 HLD ; LDL 126; goal LDL < 100. Had alk phos and AST minimal elevation. Would recommend statin therapy if felt safe to initiate by primary team. #6 Disposition pending course. Patient full code. will follow and optimize CHF medication according to response. Attending: Martina Johnson <Martina Johnson - Last Filed: 09/15/19 15:52> Medications Active Medications: Acetaminophen (Tylenol Tab*) 650 mg PO Q4H PRN PRN Reason: PAIN - MILD Albuterol/Ipratropium (Duoneb (Albuterol 2.5 Mg/Ipratropium 0.5 Mg)) 1 neb INH Q4H PRN PRN Reason: SOB/WHEEZING Last Admin: 09/13/19 10:48 Dose: 1 neb Amitriptyline HCl (Elavil Tab*) 20 mg PO BEDTIME [facility] Last Admin: 09/14/19 20:52 Dose: 20 mg Aspirin (Aspirin Ec Tab*) 81 mg PO DAILY [facility] Last Admin: 09/15/19 08:26 Dose: 81 mg Benzonatate (Tessalon Cap*) 100 mg PO BID PRN PRN Reason: COUGH Last Admin: 09/15/19 08:54 Dose: 100 mg Carisoprodol (Soma Tab*) 350 mg PO QID PRN PRN Reason: PAIN Celecoxib (Celebrex Cap*) 200 mg PO BID [facility] Last Admin: 09/15/19 08:26 Dose: 200 mg Clopidogrel Bisulfate (Plavix Tab*) 75 mg PO DAILY [facility] Stop: 10/16/19 08:59 Colestipol HCl (Colestipol (Nf)) 1 gm PO BID@0000,1200 [facility]; Protocol Last Admin: 09/15/19 12:59 Dose: 1 gm Heparin Sodium (Porcine) (Heparin Vial(*)) 5,000 units SUBCUT Q8HR [facility] Last Admin: 09/15/19 15:15 Dose: 5,000 units Melatonin (Melatonin) 3 mg PO BEDTIME PRN PRN Reason: INSOMNIA Last Admin: 09/13/19 22:01 Dose: 3 mg Methimazole (Tapazole Tab*) 5 mg PO DAILY [facility] Last Admin: 09/15/19 08:26 Dose: 5 mg Methylprednisolone Sodium Succinate (Solu-Medrol 40 Mg) 40 mg IV 0800,2000 [facility] Last Admin: 09/15/19 08:27 Dose: 40 mg Metoprolol Tartrate (Lopressor Tab*) 25 mg PO TID [facility] Morphine Sulfate (Ms Contin(*)) 60 mg PO QAM [facility] Last Admin: 09/15/19 08:26 Dose: 60 mg Nicotine (Nicotine Patch 14 Mg/24 Hr*) 1 patch TRANSDERM DAILY [facility] Last Admin: 09/15/19 08:27 Dose: 1 patch Pantoprazole Sodium (Protonix Tab*) 40 mg PO BID [facility] Last Admin: 09/15/19 08:27 Dose: 40 mg Pharmacy Profile Note (Nicotine Patch Removal Note*) 1 note FOLLOW UP 2100 [facility] Last Admin: 09/14/19 20:54 Dose: 1 note Senna (Senokot 8.6 Mg Tab*) 3 tab PO QPM [facility] Last Admin: 09/14/19 16:44 Dose: 3 tab Tramadol HCl (Ultram*) 50 mg PO Q6H PRN PRN Reason: PAIN Last Admin: 09/14/19 16:56 Dose: 50 mg Objective Vital Signs: Temp Pulse Resp BP Pulse Ox 97.9 F 103 20 139/73 95 09/15/19 11:15 09/15/19 11:15 09/15/19 11:15 09/15/19 11:15 09/15/19 11:15 Laboratory Results: 09/15/19 06:22 09/15/19 06:22 INR (Anticoag Therapy) 1.25 (0.82-1.09) H 09/13/19 11:17 APTT 128.0 seconds (26.0-38.0) H* 09/13/19 11:17 Total Bilirubin 0.30 mg/dL (0.2-1.0) 09/13/19 05:13 AST 59 U/L (13-39) H 09/13/19 05:13 ALT 35 U/L (7-52) 09/13/19 05:13 Alkaline Phosphatase 127 U/L (34-104) H 09/13/19 05:13 CK-MB (CK-2) 10.7 ng/mL (0.6-6.3) H 09/13/19 08:10 B-Natriuretic Peptide 133 pg/mL (<=100) H 09/13/19 05:13 Total Protein 5.4 g/dL (6.4-8.9) L 09/13/19 05:13 Albumin 3.7 g/dL (3.2-5.2) 09/13/19 05:13 Globulin 1.7 g/dL (2-4) L 09/13/19 05:13 Albumin/Globulin Ratio 2.2 (1-3) 09/13/19 05:13 Triglycerides 112 mg/dL 09/14/19 05:04 Cholesterol 210 mg/dL 09/14/19 05:04 LDL Cholesterol 126 mg/dL 09/14/19 05:04 HDL Cholesterol 62.0 mg/dL 09/14/19 05:04 TSH 0.00 mcIU/mL (0.34-5.60) L 09/13/19 05:13 09/13/19 09/13/19 09/13/19 05:13 08:10 11:17 Troponin I 0.34 H* 1.13 H* 0.50 H* Assessment/Plan I examined the patient personally. Improved markedly. Severe CM in setting of hyperthyoid state and recent hypoxemia.- could be 2ary to hyperthyroid state, hypoxic presentation, Takasubo or combination. Non ischemic based on cath. Tolerating metoprolol well (replaced propranalol). Agree titrating BB first, ACEI later if needed. Reasonable to use antiplatelet x 30 days s/p bump in trop. As no significant CAD, LDL 100 is ideal. Overall improving.
[2019-09-15] MEDS: Benzonatate CAP* 100 MG PO PRN ×2 (08:54→22:57)
[2019-09-15] MEDS ORDERED: Metoprolol Tartrate TAB* 25 MG PO SCH (09:00)
[2019-09-15] MEDS: COLESTIPOL 1 GM PO SCH (12:59)
[2019-09-15] MEDS: Metoprolol Tartrate TAB* 25 MG PO SCH ×3 (15:15→22:56)
--- NOTE | 2019-09-15 16:30 | PN ---
Subjective Date of Service: 09/15/19 Interval History: Ms. Altamirano continues to c/o productive cough, slight SOB that increases with activity; denies fever, chills. She c/o occasional sweats, continued tremors, palpitations. She c/o chronic dry mouth. She states that sore throat is better , but nose is still runny. She has edema in LLE, but notes that this is chronic , without change. She denies recent in family, recent stressors, except hospitalization. No other complaints today. Objective Active Medications: Acetaminophen (Tylenol Tab*) 650 mg PO Q4H PRN PRN Reason: PAIN - MILD Albuterol/Ipratropium (Duoneb (Albuterol 2.5 Mg/Ipratropium 0.5 Mg)) 1 neb INH Q4H PRN PRN Reason: SOB/WHEEZING Last Admin: 09/13/19 10:48 Dose: 1 neb Amitriptyline HCl (Elavil Tab*) 20 mg PO BEDTIME ON LICENSE OF [facility] Last Admin: 09/14/19 20:52 Dose: 20 mg Aspirin (Aspirin Ec Tab*) 81 mg PO DAILY ON LICENSE OF [facility] Last Admin: 09/15/19 08:26 Dose: 81 mg Atorvastatin Calcium (Lipitor*) 20 mg PO 2100 ON LICENSE OF [facility] Benzonatate (Tessalon Cap*) 100 mg PO BID PRN PRN Reason: COUGH Last Admin: 09/15/19 08:54 Dose: 100 mg Carisoprodol (Soma Tab*) 350 mg PO QID PRN PRN Reason: PAIN Celecoxib (Celebrex Cap*) 200 mg PO BID ON LICENSE OF [facility] Last Admin: 09/15/19 08:26 Dose: 200 mg Clopidogrel Bisulfate (Plavix Tab*) 75 mg PO DAILY ON LICENSE OF [facility] Stop: 10/16/19 08:59 Colestipol HCl (Colestipol (Nf)) 1 gm PO BID@0000,1200 ON LICENSE OF [facility]; Protocol Last Admin: 09/15/19 12:59 Dose: 1 gm Heparin Sodium (Porcine) (Heparin Vial(*)) 5,000 units SUBCUT Q8HR ON LICENSE OF [facility] Last Admin: 09/15/19 15:15 Dose: 5,000 units Melatonin (Melatonin) 3 mg PO BEDTIME PRN PRN Reason: INSOMNIA Last Admin: 09/13/19 22:01 Dose: 3 mg Methimazole (Tapazole Tab*) 5 mg PO DAILY ON LICENSE OF [facility] Last Admin: 09/15/19 08:26 Dose: 5 mg Methylprednisolone Sodium Succinate (Solu-Medrol 40 Mg) 40 mg IV 799,1999 ON LICENSE OF [facility] Last Admin: 09/15/19 08:27 Dose: 40 mg Metoprolol Tartrate (Lopressor Tab*) 25 mg PO TID ON LICENSE OF [facility] Morphine Sulfate (Ms Contin(*)) 60 mg PO QAM ON LICENSE OF [facility] Last Admin: 09/15/19 08:26 Dose: 60 mg Nicotine (Nicotine Patch 14 Mg/24 Hr*) 1 patch TRANSDERM DAILY ON LICENSE OF [facility] Last Admin: 09/15/19 08:27 Dose: 1 patch Pantoprazole Sodium (Protonix Tab*) 40 mg PO BID ON LICENSE OF [facility] Last Admin: 09/15/19 08:27 Dose: 40 mg Pharmacy Profile Note (Nicotine Patch Removal Note*) 1 note FOLLOW UP 2100 ON LICENSE OF [facility] Last Admin: 09/14/19 20:54 Dose: 1 note Senna (Senokot 8.6 Mg Tab*) 3 tab PO QPM ON LICENSE OF [facility] Last Admin: 09/14/19 16:44 Dose: 3 tab Tramadol HCl (Ultram*) 50 mg PO Q6H PRN PRN Reason: PAIN Last Admin: 09/14/19 16:56 Dose: 50 mg Vital Signs: Temp Pulse Resp BP Pulse Ox 97.9 F 103 20 139/73 95 09/15/19 11:15 09/15/19 11:15 09/15/19 16:36 09/15/19 11:15 09/15/19 11:15 Oxygen Devices in Use Now: Nasal Cannula Appearance: Ms. Altamirano is an obese middle-aged female who is sitting in chair with LE at floor. She appears to have mild increased work of breathing, but appears to be in no acute distress. Eyes: No Scleral Icterus, PERRLA Ears/Nose/Mouth/Throat: NL Teeth, Lips, Gums, Clear Oropharnyx, - - Oral mucosa dry Neck: NL Appearance and Movements; NL JVP, Trachea Midline Respiratory: - - Symmetrical chest expansion; mild increased work of breathing; decreased breaths ounds with end expiratory wheezing Cardiovascular: NL Sounds; No Murmurs; No JVD, - - sinus tachycardia Abdominal: NL Sounds; No Tenderness; No Distention, No Hepatosplenomegaly Extremities: No Clubbing, Cyanosis, - - LLE edema, nonpitting- chronic Neurological: Alert and Oriented x 3 Result Diagrams: 09/15/19 06:22 09/15/19 06:22 Microbiology and Other Data: Microbiology 09/13/19 11:17 Nasal Screen MRSA (PCR) - Final Nasal Mrsa Not Detected Assess/Plan/Problems-Billing Assessment: Ms. Altamirano is a 58 yof PMHx chronic back pain, possible COPD who presents to the ER with SOB, cold symptoms, elevated troponin and hyperparathyroidism. - Patient Problems (1) Acute respiratory failure with hypoxia Comment: -pt presents with SOB, acute need for supp O2 to maintain O2 sat -likely multifactorial: -non-selective BB propranolol for hyperthyroidism d/c, cont metoprolol w/ good results -likely undx COPD with exacerbation: continue steroids- changr from IV to PO in a.m. -acute HF may have lead to pulmonary edema although lung exam without rales with decreased air exchange -Wean from O2 as able (2) Nonischemic cardiomyopathy Comment: -pt presents with elevated troponin, rEF 30-35%, no anginal symptoms -likely Takutsobu -cardiology consulting; thank you for recommendations -metoprolol tart increased to 25 PO TID; increase to achieve HR control -may add ACEi in future -card would not consider LifeVest at this time (3) Elevated troponin Comment: -peak 1.13, then trending down -echo shows WMA, EF 30-35% -heart cath shows no CAD -card recommends DAPT x30d (4) COPD (chronic obstructive pulmonary disease) Comment: -patient with approx 30-year pack history; likely undiagnosed COPD -prednisone IV today, then start PO taper tomorrow -breathing improving with switch from propranolol to selective BB -continue inhalers (5) Hyperthyroidism Comment: -hyperparathyroidism with TSH 0.00; FT4 1.51; total T3 194 -suggestive of resolving acute thyroiditis -thyroid autoantibodies testing pending -continue methimazole 5mg PO daily -IV steroid with transition to PO taper over 10 days -follow up outpatient with Dr. Esparza as scheduled (6) Tachycardia Comment: -SOB with sinus tachycardia -VQ scan low probability for PE -likely related to hyperthyroidism -continue selective BB metoprolol and monitor for improvement (7) Hyperlipidemia Comment: -LDL 126; goal LDL < 100 -start LD atorvastatin 10 mg -pt with mildly elevated LFTs; states that PCP checks LFTs q3-6mo due to home medications -recommend recheck LFTs in 2-4 weeks, then continue to monitor outpatient (8) Tobacco abuse Comment: -nicotine patch (9) Chronic back pain Comment: -continue home medications (10) DVT prophylaxis Comment: -Heparin SQ (11) Full code status Status and Disposition: Inpatient. Discharge when stable.
[2019-09-15] MEDS: traMADol TAB* 50 MG PO PRN ×2 (16:36→22:57)
[2019-09-15] MEDS: Senna TAB 8.6 mg* TAB PO SCH ×2 (18:04→22:57)
[2019-09-15] MEDS ORDERED: Atorvastatin* 20 MG TAB PO SCH (21:00)
[2019-09-15] MEDS: Amitriptyline TAB* 10 MG PO SCH (22:56)
[2019-09-15] MEDS: Atorvastatin* 10 MG TAB PO SCH (22:57)
[2019-09-15] MEDS: Nicotine Patch Removal NOTE FOLLOW UP SCH (23:06)
[2019-09-16] MEDS: COLESTIPOL 1 GM PO SCH ×2 (00:57→12:57)
[2019-09-16 04:48] LABS: ABS Lymphocytes 2.1 10^3/ul (1.0-4.8); ABS Monocytes 0.4 10^3/ul (0-0.8); ABS Neutrophils 6.4 10^3/ul (1.5-7.7); Hematocrit 40 % (35-47); Hemoglobin 13.5 g/dL (12.0-16.0); Lymphocyte % 23.6 %; Mean Corpuscular HGB Conc 34 g/dL (31-36); Mean Corpuscular Hemoglobin 31 pg (27-31); Mean Corpuscular Volume 91 fL (80-97); Mean Platelet Volume 8.2 fL (7.4-10.4); Nucleated Red Blood Cells % 0.1; Platelet Count 284 10^3/uL (150-450); Red Cell Distribution Width 12 % (10-15); White Blood Count 8.9 10^3/uL (3.5-10.8)
[2019-09-16] MEDS: Heparin VIAL(*) 5000 UNITS/ML VIAL (FIVE THOUSAND) SUBCUT SCH ×3 (06:03→21:46)
[2019-09-16] MEDS: Nicotine PATCH 14 MG/24 HR* PATCH TRANSDERM SCH (08:34)
[2019-09-16] MEDS: traMADol TAB* 50 MG PO PRN ×3 (08:35→23:27)
[2019-09-16] MEDS: Morphine TAB Extended Release (*) 30 MG TAB.ER PO SCH (08:36)
[2019-09-16] MEDS: Pantoprazole TAB * 40 MG TAB PO SCH ×2 (08:36→21:46)
[2019-09-16] MEDS: Aspirin EC TAB* 81 MG TAB.EC PO SCH (08:36)
[2019-09-16] MEDS: Metoprolol Tartrate TAB* 25 MG PO SCH ×3 (08:37→21:45)
[2019-09-16] MEDS: predniSONE TAB* 50 MG PO SCH (08:37)
[2019-09-16] MEDS: celeCOXIB CAP* 200 MG PO SCH ×2 (08:37→21:53)
[2019-09-16] MEDS: Methimazole TAB* 5 MG PO SCH (08:38)
[2019-09-16] MEDS ORDERED: Clopidogrel TAB* 75 MG PO SCH (09:00)
--- NOTE | 2019-09-16 10:06 | PN ---
<Eleonora Jackson - Last Filed: 09/16/19 10:00> Subjective Date of Service: 09/16/19 - SHF, Troponin elevation Interval History: No events last night, states breathing has improved. no c/o chest pain, palpitations, groin access pain, dizziness.She is sitting upright in bed. She is asking if lyme testing can be repeated. Medications Active Medications: Acetaminophen (Tylenol Tab*) 650 mg PO Q4H PRN PRN Reason: PAIN - MILD Albuterol/Ipratropium (Duoneb (Albuterol 2.5 Mg/Ipratropium 0.5 Mg)) 1 neb INH Q4H PRN PRN Reason: SOB/WHEEZING Last Admin: 09/13/19 10:48 Dose: 1 neb Amitriptyline HCl (Elavil Tab*) 20 mg PO BEDTIME [facility] Last Admin: 09/15/19 22:56 Dose: 20 mg Aspirin (Aspirin Ec Tab*) 81 mg PO DAILY [facility] Last Admin: 09/16/19 08:36 Dose: 81 mg Atorvastatin Calcium (Lipitor*) 10 mg PO 2100 [facility] Last Admin: 09/15/19 22:57 Dose: 10 mg Benzonatate (Tessalon Cap*) 100 mg PO BID PRN PRN Reason: COUGH Last Admin: 09/15/19 22:57 Dose: 100 mg Carisoprodol (Soma Tab*) 350 mg PO QID PRN PRN Reason: PAIN Celecoxib (Celebrex Cap*) 200 mg PO BID [facility] Last Admin: 09/16/19 08:37 Dose: 200 mg Clopidogrel Bisulfate (Plavix Tab*) 75 mg PO DAILY [facility] Stop: 10/16/19 08:59 Last Admin: 09/16/19 08:37 Dose: 75 mg Colestipol HCl (Colestipol (Nf)) 1 gm PO BID@0000,1200 [facility]; Protocol Last Admin: 09/16/19 00:57 Dose: 1 gm Heparin Sodium (Porcine) (Heparin Vial(*)) 5,000 units SUBCUT Q8HR [facility] Last Admin: 09/16/19 06:03 Dose: 5,000 units Lisinopril (Prinivil Tab*) 2.5 mg PO DAILY [facility] Melatonin (Melatonin) 3 mg PO BEDTIME PRN PRN Reason: INSOMNIA Last Admin: 09/13/19 22:01 Dose: 3 mg Methimazole (Tapazole Tab*) 5 mg PO DAILY [facility] Last Admin: 09/16/19 08:38 Dose: 5 mg Metoprolol Tartrate (Lopressor Tab*) 25 mg PO TID [facility] Last Admin: 09/16/19 08:37 Dose: 25 mg Morphine Sulfate (Ms Contin(*)) 60 mg PO QAM [facility] Last Admin: 09/16/19 08:36 Dose: 60 mg Nicotine (Nicotine Patch 14 Mg/24 Hr*) 1 patch TRANSDERM DAILY [facility] Last Admin: 09/16/19 08:34 Dose: 1 patch Pantoprazole Sodium (Protonix Tab*) 40 mg PO BID [facility] Last Admin: 09/16/19 08:36 Dose: 40 mg Pharmacy Profile Note (Nicotine Patch Removal Note*) 1 note FOLLOW UP 2100 [facility] Last Admin: 09/15/19 23:06 Dose: 1 note Prednisone (Deltasone Tab*) 50 mg PO DAILY [facility] Last Admin: 09/16/19 08:37 Dose: 50 mg Senna (Senokot 8.6 Mg Tab*) 3 tab PO BEDTIME [facility] Last Admin: 09/15/19 22:57 Dose: 3 tab Tramadol HCl (Ultram*) 50 mg PO Q6H PRN PRN Reason: PAIN Last Admin: 09/16/19 08:35 Dose: 50 mg Objective Vital Signs: Temp Pulse Resp BP Pulse Ox 97.6 F 79 18 123/73 96 09/16/19 08:03 09/16/19 08:03 09/16/19 08:36 09/16/19 08:03 09/16/19 08:03 Oxygen Devices in Use Now: Nasal Cannula Appearance: sitting upright in bed, + SOB. A+Ox3 appears more conformatable today in regards to breathing effort Eyes: No Scleral Icterus, PERRLA Ears/Nose/Mouth/Throat: NL Teeth, Lips, Gums, Clear Oropharnyx, Mucous Membranes Moist Neck: NL Appearance and Movements; NL JVP, Trachea Midline Respiratory: - - + inspiratory expiratory wheezes. No retractions. Cardiovascular: No Edema, - - Tachycardic S1, S2, RRR. No murmur. No gallop Extremities: - - Right groin access dressing was removed. Strong right femoral pulse palpated. Strong right dorsalis pedis palpated. no thrill, non tender to palpation, no heamtoma. Skin: No Rash or Ulcers Neurological: Alert and Oriented x 3 Lines/Tubes/Other Access: Clean, Dry and Intact Peripheral IV Laboratory Results: 09/16/19 04:35 09/15/19 06:22 INR (Anticoag Therapy) 1.25 (0.82-1.09) H 09/13/19 11:17 APTT 128.0 seconds (26.0-38.0) H* 09/13/19 11:17 Total Bilirubin 0.30 mg/dL (0.2-1.0) 09/13/19 05:13 AST 59 U/L (13-39) H 09/13/19 05:13 ALT 35 U/L (7-52) 09/13/19 05:13 Alkaline Phosphatase 127 U/L (34-104) H 09/13/19 05:13 CK-MB (CK-2) 10.7 ng/mL (0.6-6.3) H 09/13/19 08:10 B-Natriuretic Peptide 133 pg/mL (<=100) H 09/13/19 05:13 Total Protein 5.4 g/dL (6.4-8.9) L 09/13/19 05:13 Albumin 3.7 g/dL (3.2-5.2) 09/13/19 05:13 Globulin 1.7 g/dL (2-4) L 09/13/19 05:13 Albumin/Globulin Ratio 2.2 (1-3) 09/13/19 05:13 Triglycerides 112 mg/dL 09/14/19 05:04 Cholesterol 210 mg/dL 09/14/19 05:04 LDL Cholesterol 126 mg/dL 09/14/19 05:04 HDL Cholesterol 62.0 mg/dL 09/14/19 05:04 TSH 0.00 mcIU/mL (0.34-5.60) L 09/13/19 05:13 09/13/19 09/13/19 09/13/19 05:13 08:10 11:17 Troponin I 0.34 H* 1.13 H* 0.50 H* Laboratory Results - last 24 hr 09/16/19 04:35 WBC 8.9 RBC 4.40 Hgb 13.5 Hct 40 MCV 91 MCH 31 MCHC 34 RDW 12 Plt Count 284 MPV 8.2 Neut % (Auto) 71.5 Lymph % (Auto) 23.6 [place] % (Auto) 4.8 Eos % (Auto) 0.0 Baso % (Auto) 0.1 Absolute Neuts (auto) 6.4 Absolute Lymphs (auto) 2.1 Absolute Monos (auto) 0.4 Absolute Eos (auto) 0.0 Absolute Basos (auto) 0.0 Absolute Nucleated RBC 0.0 Nucleated RBC % 0.1 Diagnostic Imaging: Echo 09/13/2019; Per report LVEF 30-35%, + hypokinesis of mid apical, anteroseptal, anterior, mid inferoseptal and inferior regions. Mild MR. , trace to mild TR, trace [place] [facility] 09/13/[address] Swan no obstructive CAD. EKG Data: ECG 09/13/2019; Sinus tachycardia rate 114. Telemetry; Sinus tachycardia rate 80-105 with occasional PVCs. no VT. Assessment/Plan #1 SHF; LVEF 30-35% based on echo from 11/13/2018. Normal coronary arteries. ? Takotsubo cardiomyopathy. Could also be related to hypoxia due to recent Propanolol use in newly found hyperthyroidism. Tolerating Lopressor 25mg PO TID. She has periods of HR 100-110 with minimal activity. Will increase Lopressor to 37.5 mg PO TID. Will add Lisinopril 2.5mg/day. Given Minimal rise in Troponin will do 30days of DAPT then stop Plavix. #2 Acute Respiratory Failure with Hypoxia. Wheezing has improved on exam. Tolerating cardioselective bblocker. Primary team managing. #3 Recent Tick bite; no bulls eye rash noted on exam. Outpatient testing negative per patient. She is asking for test to be repeated. Will differ to primary tea. #4 Newly diagnosed hyperthyroidism; Dr. Esparza saw patient. Now on Methimazole. #5 disposition pending course will see how patient responds to higher jose f dose with addition of ACEI. will arrange for close follow up with cardiology. Will d/w Dr. Colin. Attending: Conrad Colin <Conrad Colin - Last Filed: 09/16/19 15:18> Medications Active Medications: Acetaminophen (Tylenol Tab*) 650 mg PO Q4H PRN PRN Reason: PAIN - MILD Albuterol/Ipratropium (Duoneb (Albuterol 2.5 Mg/Ipratropium 0.5 Mg)) 1 neb INH Q4H PRN PRN Reason: SOB/WHEEZING Last Admin: 09/13/19 10:48 Dose: 1 neb Amitriptyline HCl (Elavil Tab*) 20 mg PO BEDTIME [facility] Last Admin: 09/15/19 22:56 Dose: 20 mg Aspirin (Aspirin Ec Tab*) 81 mg PO DAILY [facility] Last Admin: 09/16/19 08:36 Dose: 81 mg Atorvastatin Calcium (Lipitor*) 10 mg PO 2100 [facility] Last Admin: 09/15/19 22:57 Dose: 10 mg Benzonatate (Tessalon Cap*) 100 mg PO BID PRN PRN Reason: COUGH Last Admin: 09/16/19 10:57 Dose: 100 mg Carisoprodol (Soma Tab*) 350 mg PO QID PRN PRN Reason: PAIN Celecoxib (Celebrex Cap*) 200 mg PO BID [facility] Last Admin: 09/16/19 08:37 Dose: 200 mg Colestipol HCl (Colestipol (Nf)) 1 gm PO BID@0000,1200 [facility]; Protocol Last Admin: 09/16/19 12:57 Dose: 1 gm Fluticasone Propionate (Flonase Nasal [place] 50mcg*) 2 spray BOTH NARES DAILY [facility] Heparin Sodium (Porcine) (Heparin Vial(*)) 5,000 units SUBCUT Q8HR [facility] Last Admin: 09/16/19 06:03 Dose: 5,000 units Lisinopril (Prinivil Tab*) 2.5 mg PO DAILY [facility] Last Admin: 09/16/19 10:49 Dose: 2.5 mg Melatonin (Melatonin) 3 mg PO BEDTIME PRN PRN Reason: INSOMNIA Last Admin: 09/13/19 22:01 Dose: 3 mg Methimazole (Tapazole Tab*) 5 mg PO DAILY [facility] Last Admin: 09/16/19 08:38 Dose: 5 mg Metoprolol Tartrate (Lopressor Tab*) 37.5 mg PO TID [facility] Morphine Sulfate (Ms Contin(*)) 60 mg PO QAM [facility] Last Admin: 09/16/19 08:36 Dose: 60 mg Nicotine (Nicotine Patch 14 Mg/24 Hr*) 1 patch TRANSDERM DAILY [facility] Last Admin: 09/16/19 08:34 Dose: 1 patch Pantoprazole Sodium (Protonix Tab*) 40 mg PO BID [facility] Last Admin: 09/16/19 08:36 Dose: 40 mg Pharmacy Profile Note (Nicotine Patch Removal Note*) 1 note FOLLOW UP 2100 [facility] Last Admin: 09/15/19 23:06 Dose: 1 note Prednisone (Deltasone Tab*) 50 mg PO DAILY [facility] Last Admin: 09/16/19 08:37 Dose: 50 mg Senna (Senokot 8.6 Mg Tab*) 3 tab PO BEDTIME [facility] Last Admin: 09/15/19 22:57 Dose: 3 tab Tramadol HCl (Ultram*) 50 mg PO Q6H PRN PRN Reason: PAIN Last Admin: 09/16/19 08:35 Dose: 50 mg Objective Vital Signs: Temp Pulse Resp BP Pulse Ox 97.2 F 98 18 137/76 94 09/16/19 10:47 09/16/19 10:47 09/16/19 12:58 09/16/19 10:47 09/16/19 10:47 Laboratory Results: 09/16/19 04:35 09/15/19 06:22 INR (Anticoag Therapy) 1.25 (0.82-1.09) H 09/13/19 11:17 APTT 128.0 seconds (26.0-38.0) H* 09/13/19 11:17 Total Bilirubin 0.30 mg/dL (0.2-1.0) 09/13/19 05:13 AST 59 U/L (13-39) H 09/13/19 05:13 ALT 35 U/L (7-52) 09/13/19 05:13 Alkaline Phosphatase 127 U/L (34-104) H 09/13/19 05:13 CK-MB (CK-2) 10.7 ng/mL (0.6-6.3) H 09/13/19 08:10 B-Natriuretic Peptide 133 pg/mL (<=100) H 09/13/19 05:13 Total Protein 5.4 g/dL (6.4-8.9) L 09/13/19 05:13 Albumin 3.7 g/dL (3.2-5.2) 09/13/19 05:13 Globulin 1.7 g/dL (2-4) L 09/13/19 05:13 Albumin/Globulin Ratio 2.2 (1-3) 09/13/19 05:13 Triglycerides 112 mg/dL 09/14/19 05:04 Cholesterol 210 mg/dL 09/14/19 05:04 LDL Cholesterol 126 mg/dL 09/14/19 05:04 HDL Cholesterol 62.0 mg/dL 09/14/19 05:04 TSH 0.00 mcIU/mL (0.34-5.60) L 09/13/19 05:13 09/13/19 09/13/19 09/13/19 05:13 08:10 11:17 Troponin I 0.34 H* 1.13 H* 0.50 H* Assessment/Plan Counseling and/or Coordination of Care Minutes: 35 minutes+ Points of Discussion: Reviewed with Ms. Jackson, the hospitalist, and the patient. Seems to be improving. Unclear benefit of DAPT in this setting as discussed with the team and the patient. May be a role for anticoagulation if apical akinesis or apical thrombus present. Plan: continue med adjustments will stop plavix for now. will obtain limited echo tomorrow to reassess lv ef and guide further recommendations re anticoagulation. Oli Colin MD 09.26.19 3;18 pm
[2019-09-16] MEDS: Lisinopril TAB* 5 MG PO SCH (10:49)
[2019-09-16] MEDS: Benzonatate CAP* 100 MG PO PRN ×2 (10:57→21:46)
--- NOTE | 2019-09-16 13:38 | PN ---
Subjective Date of Service: 09/16/19 Interval History: Patient states she is still tremulous but improved from yesterday. C/o sore throat and nasal congestion which are unimproved. Denies fever/chills, chest pain, difficulty breathing. Objective Active Medications: Acetaminophen (Tylenol Tab*) 650 mg PO Q4H PRN PRN Reason: PAIN - MILD Albuterol/Ipratropium (Duoneb (Albuterol 2.5 Mg/Ipratropium 0.5 Mg)) 1 neb INH Q4H PRN PRN Reason: SOB/WHEEZING Last Admin: 09/13/19 10:48 Dose: 1 neb Amitriptyline HCl (Elavil Tab*) 20 mg PO BEDTIME [facility] Last Admin: 09/15/19 22:56 Dose: 20 mg Aspirin (Aspirin Ec Tab*) 81 mg PO DAILY [facility] Last Admin: 09/16/19 08:36 Dose: 81 mg Atorvastatin Calcium (Lipitor*) 10 mg PO 2100 [facility] Last Admin: 09/15/19 22:57 Dose: 10 mg Benzonatate (Tessalon Cap*) 100 mg PO BID PRN PRN Reason: COUGH Last Admin: 09/16/19 10:57 Dose: 100 mg Carisoprodol (Soma Tab*) 350 mg PO QID PRN PRN Reason: PAIN Celecoxib (Celebrex Cap*) 200 mg PO BID [facility] Last Admin: 09/16/19 08:37 Dose: 200 mg Clopidogrel Bisulfate (Plavix Tab*) 75 mg PO DAILY [facility] Stop: 10/16/19 08:59 Last Admin: 09/16/19 08:37 Dose: 75 mg Colestipol HCl (Colestipol (Nf)) 1 gm PO BID@0000,1200 [facility]; Protocol Last Admin: 09/16/19 12:57 Dose: 1 gm Heparin Sodium (Porcine) (Heparin Vial(*)) 5,000 units SUBCUT Q8HR [facility] Last Admin: 09/16/19 06:03 Dose: 5,000 units Lisinopril (Prinivil Tab*) 2.5 mg PO DAILY [facility] Last Admin: 09/16/19 10:49 Dose: 2.5 mg Melatonin (Melatonin) 3 mg PO BEDTIME PRN PRN Reason: INSOMNIA Last Admin: 09/13/19 22:01 Dose: 3 mg Methimazole (Tapazole Tab*) 5 mg PO DAILY [facility] Last Admin: 09/16/19 08:38 Dose: 5 mg Metoprolol Tartrate (Lopressor Tab*) 37.5 mg PO TID [facility] Morphine Sulfate (Ms Contin(*)) 60 mg PO QAM [facility] Last Admin: 09/16/19 08:36 Dose: 60 mg Nicotine (Nicotine Patch 14 Mg/24 Hr*) 1 patch TRANSDERM DAILY [facility] Last Admin: 09/16/19 08:34 Dose: 1 patch Pantoprazole Sodium (Protonix Tab*) 40 mg PO BID [facility] Last Admin: 09/16/19 08:36 Dose: 40 mg Pharmacy Profile Note (Nicotine Patch Removal Note*) 1 note FOLLOW UP 2100 [facility] Last Admin: 09/15/19 23:06 Dose: 1 note Prednisone (Deltasone Tab*) 50 mg PO DAILY [facility] Last Admin: 09/16/19 08:37 Dose: 50 mg Senna (Senokot 8.6 Mg Tab*) 3 tab PO BEDTIME [facility] Last Admin: 09/15/19 22:57 Dose: 3 tab Tramadol HCl (Ultram*) 50 mg PO Q6H PRN PRN Reason: PAIN Last Admin: 09/16/19 08:35 Dose: 50 mg Vital Signs - 8 hr 09/16/19 09/16/19 09/16/19 08:03 08:18 08:35 Temperature 97.6 F Pulse Rate 79 Respiratory 20 20 18 Rate Blood Pressure 123/73 (mmHg) O2 Sat by Pulse 96 Oximetry 09/16/19 09/16/19 09/16/19 08:36 10:29 10:30 Temperature Pulse Rate Respiratory 18 16 16 Rate Blood Pressure (mmHg) O2 Sat by Pulse Oximetry 09/16/19 12:58 Temperature Pulse Rate Respiratory 18 Rate Blood Pressure (mmHg) O2 Sat by Pulse Oximetry Oxygen Devices in Use Now: Nasal Cannula Appearance: White female, who appears older than stated age, laying upright in bed, in NAD Eyes: No Scleral Icterus, - - PERRL Ears/Nose/Mouth/Throat: Mucous Membranes Moist Neck: - - supple Respiratory: Symmetrical Chest Expansion and Respiratory Effort, Clear to Auscultation Cardiovascular: NL Sounds; No Murmurs; No JVD, RRR Abdominal: - - abd soft, nontender, nondistended Extremities: No Edema, No Clubbing, Cyanosis Skin: No Rash or Ulcers Neurological: Alert and Oriented x 3, NL Muscle Strength and Tone, - - minimally tremor to bilateral hands Result Diagrams: 09/16/19 04:35 09/15/19 06:22 Microbiology and Other Data: Microbiology 09/13/19 11:17 Nasal Screen MRSA (PCR) - Final Nasal Mrsa Not Detected Assess/Plan/Problems-Billing Assessment: Ms. Altamirano is a 58 yof PMHx chronic back pain, possible COPD who presents to the ER with SOB, cold symptoms, elevated troponin and hyperthyroidism. - Patient Problems (1) Hyperthyroidism Current Visit: Yes Status: Acute Code(s): E05.90 - THYROTOXICOSIS, UNSP WITHOUT THYROTOXIC CRISIS OR STORM SNOMED Code(s): 12383140 Comment: - TSH 0.00; FT4 1.51; total T3 194 -suggestive of resolving acute thyroiditis -thyroid autoantibodies testing pending -continue methimazole 5mg PO daily -IV steroid with transition to PO taper over 10 days; received 50 mg prednisone today -follow up outpatient with Dr. Esparza as scheduled (2) Nonischemic cardiomyopathy Current Visit: Yes Status: Acute Code(s): I42.8 - OTHER CARDIOMYOPATHIES SNOMED Code(s): 07460258 Comment: -pt presents with elevated troponin, rEF 30-35%, no anginal symptoms -likely Takutsobu -cardiology consulting; thank you for recommendations -metoprolol tart increased to 37.5 mg PO TID; increase to achieve HR control -may add ACEi in future -no need for life vest at this time -pending limited echo to compare to admission echo (3) Acute respiratory failure with hypoxia Current Visit: Yes Status: Acute Code(s): J96.01 - ACUTE RESPIRATORY FAILURE WITH HYPOXIA SNOMED Code(s): 95721068 Comment: -pt presents with SOB, acute need for supp O2 to maintain O2 sat -likely multifactorial: -non-selective BB propranolol for hyperthyroidism d/c, cont metoprolol w/ good results -likely undx COPD with exacerbation: continue steroids- change from IV to PO in a.m. -acute HF may have lead to pulmonary edema although lung exam without rales with decreased air exchange -Wean from O2 as able as O2 sats have been good (4) Tachycardia Current Visit: Yes Status: Acute Code(s): R00.0 - TACHYCARDIA, UNSPECIFIED SNOMED Code(s): 3342031 Comment: -SOB with sinus tachycardia -VQ scan low probability for PE -likely related to hyperthyroidism -continue selective BB metoprolol as above (5) COPD (chronic obstructive pulmonary disease) Current Visit: Yes Status: Acute Code(s): J44.9 - CHRONIC OBSTRUCTIVE PULMONARY DISEASE, UNSPECIFIED SNOMED Code(s): 07990692 Comment: -patient with approx 30-year pack history; likely undiagnosed COPD -continue prednisone -breathing improving with switch from propranolol to selective BB -continue inhalers (6) Chronic back pain Current Visit: Yes Status: Acute Code(s): M54.9 - DORSALGIA, UNSPECIFIED; G89.29 - OTHER CHRONIC PAIN SNOMED Code(s): 531348649 Comment: -continue home medications (7) Elevated troponin Current Visit: Yes Status: Acute Code(s): R79.89 - OTHER SPECIFIED ABNORMAL FINDINGS OF BLOOD CHEMISTRY SNOMED Code(s): 613771287 Comment: -peak 1.13, then trending down -echo shows WMA, EF 30-35% -heart cath shows no CAD -likely type 2 NSTEMI considering likely takotsubo -continue aspirin, d/c plavix per cardiology (8) Hyperlipidemia Current Visit: Yes Status: Acute Code(s): E78.5 - HYPERLIPIDEMIA, UNSPECIFIED SNOMED Code(s): 68141743 Comment: -LDL 126; goal LDL < 100 -start LD atorvastatin 10 mg -pt with mildly elevated LFTs; states that PCP checks LFTs q3-6mo due to home medications -recommend recheck LFTs in 2-4 weeks, then continue to monitor outpatient (9) Tobacco abuse Current Visit: Yes Status: Acute Code(s): Z72.0 - TOBACCO USE SNOMED Code( s): 515226773 Comment: -nicotine patch (10) DVT prophylaxis Current Visit: Yes Status: Acute Code(s): Z29.9 - ENCOUNTER FOR PROPHYLACTIC MEASURES, UNSPECIFIED SNOMED Code(s): 329239876 Comment: -Heparin SQ (11) Full code status Current Visit: Yes Status: Acute Code(s): Z78.9 - OTHER SPECIFIED HEALTH STATUS SNOMED Code(s): 759594774 Status and Disposition: Inpatient. Discharge when stable.
[2019-09-16] MEDS: Fluticasone NASAL SPRAY 50MCG* 16 gm SPRAY BTL BOTH NARES SCH (15:16)
[2019-09-16] MEDS: Atorvastatin* 10 MG TAB PO SCH (21:45)
[2019-09-16] MEDS: Amitriptyline TAB* 10 MG PO SCH (21:45)
[2019-09-16] MEDS: Senna TAB 8.6 mg* TAB PO SCH (21:45)
[2019-09-16] MEDS: Nicotine Patch Removal NOTE FOLLOW UP SCH (21:47)
[2019-09-17] MEDS: COLESTIPOL 1 GM PO SCH ×2 (01:16→12:01)
[2019-09-17] MEDS: Heparin VIAL(*) 5000 UNITS/ML VIAL (FIVE THOUSAND) SUBCUT SCH ×3 (05:10→21:42)
[2019-09-17] MEDS ORDERED: Perflutren Lipid Microsphere* 3 ML VIAL ONE (08:56)
[2019-09-17] MEDS: Morphine TAB Extended Release (*) 30 MG TAB.ER PO SCH (09:49)
[2019-09-17] MEDS: celeCOXIB CAP* 200 MG PO SCH ×2 (09:50→21:39)
[2019-09-17] MEDS: Metoprolol Tartrate TAB* 25 MG PO SCH ×2 (09:50→10:04)
[2019-09-17] MEDS: Lisinopril TAB* 5 MG PO SCH (09:51)
[2019-09-17] MEDS: predniSONE TAB* 50 MG PO SCH (09:51)
[2019-09-17] MEDS: Aspirin EC TAB* 81 MG TAB.EC PO SCH (09:52)
[2019-09-17] MEDS: Pantoprazole TAB * 40 MG TAB PO SCH ×2 (09:52→21:39)
[2019-09-17] MEDS: Fluticasone NASAL SPRAY 50MCG* 16 gm SPRAY BTL BOTH NARES SCH (09:53)
[2019-09-17] MEDS: Methimazole TAB* 5 MG PO SCH (09:54)
[2019-09-17] MEDS ORDERED: Metoprolol Succinate XL TAB* 100 MG PO SCH (10:00)
--- NOTE | 2019-09-17 10:11 | PN ---
<Eleonora Jackson - Last Filed: 09/17/19 10:02> Subjective Date of Service: 09/17/19 - NSTEMI, ? Takotsubo CM, Hyperthyroidism, Interval History: No events last night, states breathing has improved. no c/o chest pain, palpitations, groin access pain, dizziness.She is sitting upright in bed. She is inquiring about her repeat echo that was done early this morning. Medications Active Medications: Acetaminophen (Tylenol Tab*) 650 mg PO Q4H PRN PRN Reason: PAIN - MILD Albuterol/Ipratropium (Duoneb (Albuterol 2.5 Mg/Ipratropium 0.5 Mg)) 1 neb INH Q4H PRN PRN Reason: SOB/WHEEZING Last Admin: 09/13/19 10:48 Dose: 1 neb Amitriptyline HCl (Elavil Tab*) 20 mg PO BEDTIME [facility] Last Admin: 09/16/19 21:45 Dose: 20 mg Aspirin (Aspirin Ec Tab*) 81 mg PO DAILY [facility] Last Admin: 09/17/19 09:52 Dose: 81 mg Atorvastatin Calcium (Lipitor*) 10 mg PO 2100 [facility] Last Admin: 09/16/19 21:45 Dose: 10 mg Benzonatate (Tessalon Cap*) 100 mg PO BID PRN PRN Reason: COUGH Last Admin: 09/16/19 21:46 Dose: 100 mg Carisoprodol (Soma Tab*) 350 mg PO QID PRN PRN Reason: PAIN Celecoxib (Celebrex Cap*) 200 mg PO BID [facility] Last Admin: 09/17/19 09:50 Dose: 200 mg Colestipol HCl (Colestipol (Nf)) 1 gm PO BID@0000,1200 [facility]; Protocol Last Admin: 09/17/19 01:16 Dose: 1 gm Fluticasone Propionate (Flonase Nasal [place] 50mcg*) 2 spray BOTH NARES DAILY [facility] Last Admin: 09/17/19 09:53 Dose: 2 spray Heparin Sodium (Porcine) (Heparin Vial(*)) 5,000 units SUBCUT Q8HR [facility] Last Admin: 09/17/19 05:10 Dose: 5,000 units Lisinopril (Prinivil Tab*) 2.5 mg PO DAILY [facility] Last Admin: 09/17/19 09:51 Dose: 2.5 mg Melatonin (Melatonin) 3 mg PO BEDTIME PRN PRN Reason: INSOMNIA Last Admin: 09/13/19 22:01 Dose: 3 mg Methimazole (Tapazole Tab*) 5 mg PO DAILY [facility] Last Admin: 09/17/19 09:54 Dose: 5 mg Metoprolol Succinate (Toprol Xl Tab*) 75 mg PO BID [facility] Morphine Sulfate (Ms Contin(*)) 60 mg PO QAM [facility] Last Admin: 09/17/19 09:49 Dose: 60 mg Nicotine (Nicotine Patch 14 Mg/24 Hr*) 1 patch TRANSDERM DAILY [facility] Last Admin: 09/16/19 08:34 Dose: 1 patch Pantoprazole Sodium (Protonix Tab*) 40 mg PO BID [facility] Last Admin: 09/17/19 09:52 Dose: 40 mg Pharmacy Profile Note (Nicotine Patch Removal Note*) 1 note FOLLOW UP 2100 [facility] Last Admin: 09/16/19 21:47 Dose: 1 note Prednisone (Deltasone Tab*) 50 mg PO DAILY [facility] Last Admin: 09/17/19 09:51 Dose: 50 mg Senna (Senokot 8.6 Mg Tab*) 3 tab PO BEDTIME [facility] Last Admin: 09/16/19 21:45 Dose: 3 tab Tramadol HCl (Ultram*) 50 mg PO Q6H PRN PRN Reason: PAIN Last Admin: 09/16/19 23:27 Dose: 50 mg Objective Vital Signs: Temp Pulse Resp BP Pulse Ox 97.8 F 81 18 112/61 92 09/17/19 07:15 09/17/19 07:15 09/17/19 09:49 09/17/19 07:15 09/17/19 07:15 Oxygen Devices in Use Now: None Appearance: sitting upright in bed, + SOB. A+Ox3 appears more conformatable today in regards to breathing effort Eyes: No Scleral Icterus, PERRLA Ears/Nose/Mouth/Throat: NL Teeth, Lips, Gums, Clear Oropharnyx, Mucous Membranes Moist Neck: NL Appearance and Movements; NL JVP, Trachea Midline Respiratory: - - + inspiratory expiratory wheezes. No retractions. Cardiovascular: No Edema, - - Tachycardic S1, S2, RRR. No murmur. No gallop Extremities: - - Right groin access dressing was removed. Strong right femoral pulse palpated. Strong right dorsalis pedis palpated. no thrill, non tender to palpation, no heamtoma. Skin: No Rash or Ulcers Neurological: Alert and Oriented x 3 Lines/Tubes/Other Access: Clean, Dry and Intact Peripheral IV Laboratory Results: 09/16/19 04:35 09/15/19 06:22 INR (Anticoag Therapy) 1.25 (0.82-1.09) H 09/13/19 11:17 APTT 128.0 seconds (26.0-38.0) H* 09/13/19 11:17 Total Bilirubin 0.30 mg/dL (0.2-1.0) 09/13/19 05:13 AST 59 U/L (13-39) H 09/13/19 05:13 ALT 35 U/L (7-52) 09/13/19 05:13 Alkaline Phosphatase 127 U/L (34-104) H 09/13/19 05:13 CK-MB (CK-2) 10.7 ng/mL (0.6-6.3) H 09/13/19 08:10 B-Natriuretic Peptide 133 pg/mL (<=100) H 09/13/19 05:13 Total Protein 5.4 g/dL (6.4-8.9) L 09/13/19 05:13 Albumin 3.7 g/dL (3.2-5.2) 09/13/19 05:13 Globulin 1.7 g/dL (2-4) L 09/13/19 05:13 Albumin/Globulin Ratio 2.2 (1-3) 09/13/19 05:13 Triglycerides 112 mg/dL 09/14/19 05:04 Cholesterol 210 mg/dL 09/14/19 05:04 LDL Cholesterol 126 mg/dL 09/14/19 05:04 HDL Cholesterol 62.0 mg/dL 09/14/19 05:04 TSH 0.00 mcIU/mL (0.34-5.60) L 09/13/19 05:13 09/13/19 09/13/19 09/13/19 05:13 08:10 11:17 Troponin I 0.34 H* 1.13 H* 0.50 H* Diagnostic Imaging: Echo 09/13/2019; Per report LVEF 30-35%, + hypokinesis of mid apical, anteroseptal, anterior, mid inferoseptal and inferior regions. Mild MR. , trace to mild TR, trace IN C 09/13/[address] Swan no obstructive CAD. EKG Data: ECG 09/13/2019; Sinus tachycardia rate 114. ECG 09/17/2019; Sinus rhythm rate 77 New anterior TWI noted in V1-V3 Telemetry; Sinus tachycardia rate 80-105 with occasional PVCs. no VT. Assessment/Plan #1 SHF; LVEF 30-35% based on echo from 11/13/2018. Normal coronary arteries. ? Takotsubo cardiomyopathy. Could also be related to hypoxia due to recent Propanolol use in newly found hyperthyroidism. Tolerating Lopressor 37.5mg PO TID. She has periods of HR 100-110 with minimal activity. Will convert Lopressor to Toprol 75mg PO BID. Will continue Lisinopril 2.5mg/day. Repeat echo pending to reassess LVEF> Today's ECG revealed new anterior TWI. Denies recurrent chest pain, sob continue to improve. On ASA 81/day. #2 Acute Respiratory Failure with Hypoxia. Wheezing has improved on exam. Tolerating cardioselective bblocker. Primary team managing. #3 Recent Tick bite; no bulls eye rash noted on exam. Outpatient testing negative per patient. She is asking for test to be repeated. Will differ to primary tea. #4 Newly diagnosed hyperthyroidism; Dr. Esparza saw patient. Now on Methimazole. #5 disposition pending course will monitor patient's response to XL cardioselective bblocker. Await repeat echo which is to be read today. D/W Dr. Colin who agrees with plan of care. Attending: Conrad Colin <Conrad Colin - Last Filed: 09/17/19 11:48> Medications Active Medications: Acetaminophen (Tylenol Tab*) 650 mg PO Q4H PRN PRN Reason: PAIN - MILD Albuterol/Ipratropium (Duoneb (Albuterol 2.5 Mg/Ipratropium 0.5 Mg)) 1 neb INH Q4H PRN PRN Reason: SOB/WHEEZING Last Admin: 09/13/19 10:48 Dose: 1 neb Amitriptyline HCl (Elavil Tab*) 20 mg PO BEDTIME [facility] Last Admin: 09/16/19 21:45 Dose: 20 mg Aspirin (Aspirin Ec Tab*) 81 mg PO DAILY [facility] Last Admin: 09/17/19 09:52 Dose: 81 mg Atorvastatin Calcium (Lipitor*) 10 mg PO 2100 [facility] Last Admin: 09/16/19 21:45 Dose: 10 mg Benzonatate (Tessalon Cap*) 100 mg PO BID PRN PRN Reason: COUGH Last Admin: 09/17/19 10:18 Dose: 100 mg Carisoprodol (Soma Tab*) 350 mg PO QID PRN PRN Reason: PAIN Celecoxib (Celebrex Cap*) 200 mg PO BID [facility] Last Admin: 09/17/19 09:50 Dose: 200 mg Colestipol HCl (Colestipol (Nf)) 1 gm PO BID@0000,1200 [facility]; Protocol Last Admin: 09/17/19 01:16 Dose: 1 gm Fluticasone Propionate (Flonase Nasal [place] 50mcg*) 2 spray BOTH NARES DAILY [facility] Last Admin: 09/17/19 09:53 Dose: 2 spray Heparin Sodium (Porcine) (Heparin Vial(*)) 5,000 units SUBCUT Q8HR [facility] Last Admin: 09/17/19 05:10 Dose: 5,000 units Lisinopril (Prinivil Tab*) 2.5 mg PO DAILY [facility] Last Admin: 09/17/19 09:51 Dose: 2.5 mg Melatonin (Melatonin) 3 mg PO BEDTIME PRN PRN Reason: INSOMNIA Last Admin: 09/13/19 22:01 Dose: 3 mg Methimazole (Tapazole Tab*) 5 mg PO DAILY [facility] Last Admin: 09/17/19 09:54 Dose: 5 mg Metoprolol Succinate (Toprol Xl Tab*) 75 mg PO BID [facility] Last Admin: 09/17/19 10:18 Dose: 75 mg Morphine Sulfate (Ms Contin(*)) 60 mg PO QAM [facility] Last Admin: 09/17/19 09:49 Dose: 60 mg Nicotine (Nicotine Patch 14 Mg/24 Hr*) 1 patch TRANSDERM DAILY [facility] Last Admin: 09/17/19 10:19 Dose: 1 patch Pantoprazole Sodium (Protonix Tab*) 40 mg PO BID [facility] Last Admin: 09/17/19 09:52 Dose: 40 mg Pharmacy Profile Note (Nicotine Patch Removal Note*) 1 note FOLLOW UP 2099 [facility] Last Admin: 09/16/19 21:47 Dose: 1 note Prednisone (Deltasone Tab*) 50 mg PO DAILY [facility] Last Admin: 09/17/19 09:51 Dose: 50 mg Senna (Senokot 8.6 Mg Tab*) 3 tab PO BEDTIME [facility] Last Admin: 09/16/19 21:45 Dose: 3 tab Tramadol HCl (Ultram*) 50 mg PO Q6H PRN PRN Reason: PAIN Last Admin: 09/17/19 10:18 Dose: 50 mg Objective Vital Signs: Temp Pulse Resp BP Pulse Ox 97.8 F 81 20 112/61 92 09/17/19 07:15 09/17/19 07:15 09/17/19 10:18 09/17/19 07:15 09/17/19 07:15 Laboratory Results: 09/16/19 04:35 09/15/19 06:22 INR (Anticoag Therapy) 1.25 (0.82-1.09) H 09/13/19 11:17 APTT 128.0 seconds (26.0-38.0) H* 09/13/19 11:17 Total Bilirubin 0.30 mg/dL (0.2-1.0) 09/13/19 05:13 AST 59 U/L (13-39) H 09/13/19 05:13 ALT 35 U/L (7-52) 09/13/19 05:13 Alkaline Phosphatase 127 U/L (34-104) H 09/13/19 05:13 CK-MB (CK-2) 10.7 ng/mL (0.6-6.3) H 09/13/19 08:10 B-Natriuretic Peptide 133 pg/mL (<=100) H 09/13/19 05:13 Total Protein 5.4 g/dL (6.4-8.9) L 09/13/19 05:13 Albumin 3.7 g/dL (3.2-5.2) 09/13/19 05:13 Globulin 1.7 g/dL (2-4) L 09/13/19 05:13 Albumin/Globulin Ratio 2.2 (1-3) 09/13/19 05:13 Triglycerides 112 mg/dL 09/14/19 05:04 Cholesterol 210 mg/dL 09/14/19 05:04 LDL Cholesterol 126 mg/dL 09/14/19 05:04 HDL Cholesterol 62.0 mg/dL 09/14/19 05:04 TSH 0.00 mcIU/mL (0.34-5.60) L 09/13/19 05:13 09/13/19 09/13/19 09/13/19 05:13 08:10 11:17 Troponin I 0.34 H* 1.13 H* 0.50 H* Assessment/Plan Points of Discussion: Reviewed with patient and Renetta. Patient continues to improve. Echo revealed marked improvement in Ef and no LV thrombus, nl apical wall motion. I believe risk of intracardiac thrombus low at this time. Will continue asa ; no plavix or anticoagulation recommended at this time. Continue beta jose f and rx for hyperthyroidism.
--- NOTE | 2019-09-17 10:14 | ECHO ---
*[facility]* [place] [address] Fax #: [phone] Limited Transthoracic Echocardiogram Patient: Adriana Altamirano : 1960 Study Date: 09/17/2019 Age: 58 Gender: F HR: 100 bpm Height: 0.6 in /1.5 cm BSA: Weight: 163.7 lb /74.4 kg BMI: *[place]: * [facility] *Referring Physician: * Conrad Colin MD *Reading Physician: * Conrad Colin MD Indications: Chest Pain, unspecified. History: Full transthoractic echocardiography 09/13/19. Limited study to assess LVEF and Apical thrombus. Risk factors: Current tobacco use. Conclusions Summary: - Left ventricle: Systolic function is normal. The estimated ejection fraction is 55-60%. Systolic function is improved from and ejection fraction of 30-35% on the study of 09/13/2019. - Regional wall motion abnormality: Mild hypokinesis of the mid anterior and mid anteroseptal myocardium with normal to hyperdynamic wall motion elsewhere. Study data: Transthoracic echocardiogram, limited study. Procedure: Transthoracic echocardiography was performed. Image quality was good. Intravenous Definity , 3 mlswas administered. Image enhancement administered by Patient status: Inpatient. Patient room number: 446-1. The previous study was not available, so comparison is made to the report of 09/13/2019. Rhythm: Normal sinus rhythm. Findings Left ventricle: No thrombus noted in left ventricle apex. Systolic function is normal. The estimated ejection fraction is 55-60%. Systolic function is improved from and ejection fraction of 30-35% on the study of 09/13/2019. Regional wall motion abnormalities: Mild hypokinesis of the mid anterior and mid anteroseptal myocardium with normal to hyperdynamic wall motion elsewhere. Prepared and electronically signed by Conrad Colin MD 09/17/2019 10:13
[2019-09-17] MEDS: Benzonatate CAP* 100 MG PO PRN ×2 (10:18→21:55)
[2019-09-17] MEDS: traMADol TAB* 50 MG PO PRN ×2 (10:18→21:55)
[2019-09-17] MEDS: Metoprolol Succinate XL TAB* 50 MG PO SCH ×2 (10:18→21:40)
[2019-09-17] MEDS: Nicotine PATCH 14 MG/24 HR* PATCH TRANSDERM SCH (10:19)
--- NOTE | 2019-09-17 14:31 | PN ---
Subjective Date of Service: 09/17/19 Interval History: Patient c/o difficulty sleeping due to nasal congestion and cough. Otherwise c/ o sweating. Declines fan in room. Denies fever/chills, palpitations, chest pain , difficulty breathing. Objective Active Medications: Acetaminophen (Tylenol Tab*) 650 mg PO Q4H PRN PRN Reason: PAIN - MILD Albuterol/Ipratropium (Duoneb (Albuterol 2.5 Mg/Ipratropium 0.5 Mg)) 1 neb INH Q4H PRN PRN Reason: SOB/WHEEZING Last Admin: 09/13/19 10:48 Dose: 1 neb Amitriptyline HCl (Elavil Tab*) 20 mg PO BEDTIME [facility] Last Admin: 09/16/19 21:45 Dose: 20 mg Aspirin (Aspirin Ec Tab*) 81 mg PO DAILY [facility] Last Admin: 09/17/19 09:52 Dose: 81 mg Atorvastatin Calcium (Lipitor*) 10 mg PO 2100 [facility] Last Admin: 09/16/19 21:45 Dose: 10 mg Benzonatate (Tessalon Cap*) 100 mg PO BID PRN PRN Reason: COUGH Last Admin: 09/17/19 10:18 Dose: 100 mg Carisoprodol (Soma Tab*) 350 mg PO QID PRN PRN Reason: PAIN Celecoxib (Celebrex Cap*) 200 mg PO BID [facility] Last Admin: 09/17/19 09:50 Dose: 200 mg Colestipol HCl (Colestipol (Nf)) 1 gm PO BID@0000,1200 [facility]; Protocol Last Admin: 09/17/19 12:01 Dose: 1 gm Fluticasone Propionate (Flonase Nasal [place] 50mcg*) 2 spray BOTH NARES DAILY [facility] Last Admin: 09/17/19 09:53 Dose: 2 spray Heparin Sodium (Porcine) (Heparin Vial(*)) 5,000 units SUBCUT Q8HR [facility] Last Admin: 09/17/19 12:13 Dose: 5,000 units Lisinopril (Prinivil Tab*) 2.5 mg PO DAILY [facility] Last Admin: 09/17/19 09:51 Dose: 2.5 mg Melatonin (Melatonin) 3 mg PO BEDTIME PRN PRN Reason: INSOMNIA Last Admin: 09/13/19 22:01 Dose: 3 mg Methimazole (Tapazole Tab*) 5 mg PO DAILY [facility] Last Admin: 09/17/19 09:54 Dose: 5 mg Metoprolol Succinate (Toprol Xl Tab*) 75 mg PO BID [facility] Last Admin: 09/17/19 10:18 Dose: 75 mg Morphine Sulfate (Ms Contin(*)) 60 mg PO QAM [facility] Last Admin: 09/17/19 09:49 Dose: 60 mg Nicotine (Nicotine Patch 14 Mg/24 Hr*) 1 patch TRANSDERM DAILY [facility] Last Admin: 09/17/19 10:19 Dose: 1 patch Pantoprazole Sodium (Protonix Tab*) 40 mg PO BID [facility] Last Admin: 09/17/19 09:52 Dose: 40 mg Pharmacy Profile Note (Nicotine Patch Removal Note*) 1 note FOLLOW UP 2100 [facility] Last Admin: 09/16/19 21:47 Dose: 1 note Prednisone (Deltasone Tab*) 50 mg PO DAILY [facility] Last Admin: 09/17/19 09:51 Dose: 50 mg Senna (Senokot 8.6 Mg Tab*) 3 tab PO BEDTIME [facility] Last Admin: 09/16/19 21:45 Dose: 3 tab Tramadol HCl (Ultram*) 50 mg PO Q6H PRN PRN Reason: PAIN Last Admin: 09/17/19 10:18 Dose: 50 mg Vital Signs - 8 hr 09/17/19 09/17/19 09/17/19 07:15 08:00 09:49 Temperature 97.8 F Pulse Rate 81 Respiratory 16 18 18 Rate Blood Pressure 112/61 (mmHg) O2 Sat by Pulse 92 Oximetry 09/17/19 09/17/19 09/17/19 10:18 11:15 13:02 Temperature 97.8 F Pulse Rate 96 Respiratory 20 20 20 Rate Blood Pressure 116/65 (mmHg) O2 Sat by Pulse 94 Oximetry Oxygen Devices in Use Now: None Appearance: Obese, white female, laying upright in bed appearing in NAD; somewhat diaphoretic Eyes: No Scleral Icterus, - - PERRL Ears/Nose/Mouth/Throat: Mucous Membranes Moist Neck: - - neck supple Respiratory: Symmetrical Chest Expansion and Respiratory Effort, - - end- expiratory wheezes in bilateral mid lung ryan Cardiovascular: NL Sounds; No Murmurs; No JVD, RRR Abdominal: - - abd soft, nontender, nondistended Extremities: No Edema, No Clubbing, Cyanosis, - - no calf tenderness Skin: No Rash or Ulcers Neurological: Alert and Oriented x 3, NL Muscle Strength and Tone Result Diagrams: 09/16/19 04:35 09/15/19 06:22 Microbiology and Other Data: Microbiology 09/13/19 11:17 Nasal Screen MRSA (PCR) - Final Nasal Mrsa Not Detected Assess/Plan/Problems-Billing Assessment: Ms. Altamirano is a 58 yof PMHx chronic back pain, possible COPD who presents to the ER with SOB, cold symptoms, elevated troponin and hyperthyroidism. - Patient Problems (1) Hyperthyroidism Current Visit: Yes Status: Acute Code(s): E05.90 - THYROTOXICOSIS, UNSP WITHOUT THYROTOXIC CRISIS OR STORM SNOMED Code(s): 59661120 Comment: - TSH 0.00; FT4 1.51; total T3 194 -suggestive of resolving acute thyroiditis -thyroid autoantibodies testing pending -continue methimazole 5mg PO daily -IV steroid with transition to PO taper over 10 days; received 50 mg prednisone today, changing to 40mg tomorrow -follow up outpatient with Dr. Esparza as scheduled (2) Nonischemic cardiomyopathy Current Visit: Yes Status: Acute Code(s): I42.8 - OTHER CARDIOMYOPATHIES SNOMED Code(s): 18485895 Comment: -pt presents with elevated troponin, rEF 30-35%, no anginal symptoms -possibly Takutsobu -cardiology consulting; thank you for recommendations -BB changed to metoprolol succinate BID and we will continue to monitor -lisinopril 2.5mg -no need for life vest at this time -repeat echo today demonstrates improvement of EF to wnl, likely due to tachycardia control and hyperthyroidism tx (3) Acute respiratory failure with hypoxia Current Visit: Yes Status: Acute Code(s): J96.01 - ACUTE RESPIRATORY FAILURE WITH HYPOXIA SNOMED Code(s): 59443060 Comment: -pt presents with SOB, acute need for supp O2 to maintain O2 sat -likely multifactorial: -non-selective BB propranolol for hyperthyroidism d/c, cont metoprolol w/ good results -likely undx COPD with exacerbation: continue steroids- change from IV to PO in a.m. -acute HF may have lead to pulmonary edema although lung exam without rales with decreased air exchange -resolved, patient on room air today with good O2 sats (4) Tachycardia Current Visit: Yes Status: Acute Code(s): R00.0 - TACHYCARDIA, UNSPECIFIED SNOMED Code(s): 8904143 Comment: -SOB with sinus tachycardia at presentation -VQ scan low probability for PE -likely related to hyperthyroidism -continue metoprolol as above (5) COPD (chronic obstructive pulmonary disease) Current Visit: Yes Status: Acute Code(s): J44.9 - CHRONIC OBSTRUCTIVE PULMONARY DISEASE, UNSPECIFIED SNOMED Code(s): 36504566 Comment: -patient with approx 30-year pack history; likely undiagnosed COPD -continue prednisone -breathing improving with switch from propranolol to selective BB -continue inhalers -will need outpatient PFTs on follow up (6) Chronic back pain Current Visit: Yes Status: Acute Code(s): M54.9 - DORSALGIA, UNSPECIFIED; G89.29 - OTHER CHRONIC PAIN SNOMED Code(s): 955915643 Comment: -continue home medications (7) Elevated troponin Current Visit: Yes Status: Acute Code(s): R79.89 - OTHER SPECIFIED ABNORMAL FINDINGS OF BLOOD CHEMISTRY SNOMED Code(s): 073680448 Comment: -peak 1.13, then trending down -echo shows WMA, EF 30-35% -heart cath shows no CAD -likely type 2 NSTEMI -continue aspirin (8) Hyperlipidemia Current Visit: Yes Status: Acute Code(s): E78.5 - HYPERLIPIDEMIA, UNSPECIFIED SNOMED Code(s): 18393776 Comment: -LDL 126; goal LDL < 100 -start LD atorvastatin 10 mg -pt with mildly elevated LFTs; states that PCP checks LFTs q3-6mo due to home medications -recommend recheck LFTs in 2-4 weeks, then continue to monitor outpatient (9) Tobacco abuse Current Visit: Yes Status: Acute Code(s): Z72.0 - TOBACCO USE SNOMED Code( s): 381417883 Comment: -nicotine patch -discussed smoking cessation (10) Tick bite Current Visit: Yes Status: Acute Code(s): W57.XXXA - BIT/STUNG BY NONVENOM INSECT & OTH NONVENOM ARTHROPODS, INIT SNOMED Code(s): 43373479 Comment: -recent tick bite without associate erythema migrans rash -outpatient lyme test negative per patient. Patient is requesting repeat, pending (11) DVT prophylaxis Current Visit: Yes Status: Acute Code(s): Z29.9 - ENCOUNTER FOR PROPHYLACTIC MEASURES, UNSPECIFIED SNOMED Code(s): 112140076 Comment: -Heparin SQ (12) Full code status Current Visit: Yes Status: Acute Code(s): Z78.9 - OTHER SPECIFIED HEALTH STATUS SNOMED Code(s): 169033352 Status and Disposition: Inpatient. Discharge when stable.
[2019-09-17] MEDS: Senna TAB 8.6 mg* TAB PO SCH (21:39)
[2019-09-17] MEDS: Atorvastatin* 10 MG TAB PO SCH (21:39)
[2019-09-17] MEDS: Amitriptyline TAB* 10 MG PO SCH (21:39)
[2019-09-17] MEDS: Nicotine Patch Removal NOTE FOLLOW UP SCH (21:42)
[2019-09-18] MEDS: COLESTIPOL 1 GM PO SCH ×2 (00:05→12:38)
[2019-09-18] MEDS: Heparin VIAL(*) 5000 UNITS/ML VIAL (FIVE THOUSAND) SUBCUT SCH (05:25)
[2019-09-18] MEDS: Morphine TAB Extended Release (*) 30 MG TAB.ER PO SCH (08:40)
[2019-09-18] MEDS: celeCOXIB CAP* 200 MG PO SCH (08:41)
[2019-09-18] MEDS: Fluticasone NASAL SPRAY 50MCG* 16 gm SPRAY BTL BOTH NARES SCH (08:41)
[2019-09-18] MEDS: Benzonatate CAP* 100 MG PO PRN (08:41)
[2019-09-18] MEDS: Methimazole TAB* 5 MG PO SCH (08:41)
[2019-09-18] MEDS: Lisinopril TAB* 5 MG PO SCH (08:41)
[2019-09-18] MEDS: Pantoprazole TAB * 40 MG TAB PO SCH (08:41)
[2019-09-18] MEDS: Aspirin EC TAB* 81 MG TAB.EC PO SCH (08:41)
[2019-09-18] MEDS: Metoprolol Succinate XL TAB* 50 MG PO SCH (08:41)
[2019-09-18] MEDS: Nicotine PATCH 14 MG/24 HR* PATCH TRANSDERM SCH (08:42)
[2019-09-18] MEDS: traMADol TAB* 50 MG PO PRN (08:49)
[2019-09-18] MEDS ORDERED: predniSONE TAB* 20 MG PO SCH (09:00)
[2019-09-18 11:27] VITALS: BP 111/59
--- NOTE | 2019-09-18 23:35 | DS ---
CC: Dr. Rivas * DISCHARGE SUMMARY: DATE OF ADMISSION: 09/13/19 DATE OF DISCHARGE: 09/18/19 ATTENDING PHYSICIAN ON DAY OF DISCHARGE: Dr. Violet Ojeda * (dictated by SHANEKA Stewart). PRIMARY CARE PROVIDER: Dr. Rivas. CONSULTING ICE SCULPTOR: Dr. Esparza. CONSULTING ASSEMBLER DRY CELL AND BATTERY: Dr. Swan. PRIMARY DIAGNOSIS: 1. Hyperthyroidism, likely Graves' disease. 2. Possible stress cardiomyopathy, now resolved. 3. Acute respiratory failure with hypoxia, likely an exacerbation of undiagnosed chronic obstructive pulmonary disease in the setting of viral upper respiratory infection. SECONDARY DIAGNOSES: 1. Tobacco use. 2. Chronic back pain. PROCEDURES WHILE IN THE HOSPITAL: Cardiac catheterization on 09/13/[address] Swan. The coronary articulation is right dominant. A 0% stenosis in left main. Mildly calcified LAD with no stenosis. A 0% stenosis in left circumflex, 0% stenosis in the right coronary. Echocardiogram on , EF 30% to 35%, hypokinesis of the mid apical anterior septal and anterior myocardium. Hypokinesis of mid inferior septal and apical septal myocardium. Hypokinesis of the mid inferior myocardium in A to C view. Systolic function of right ventricle was mildly reduced with apical hypokinesis. On 09/13/19, V/Q lung scan, impression: Low probability of pulmonary embolism. Prior to that chest x-ray on 09/13/19, no active cardiopulmonary disease. Limited echocardiogram on 09/17/19, estimated EF is 55% to 60%. Systolic function is improved from prior study on 09/13/19. Regional wall motion abnormality: Mild hypokinesis of the mid anterior and mid anteroseptal myocardium with normal to hyperdynamic wall motion elsewhere. PERTINENT LAB DATA: TSH 0, free T4 of 1.51, total T3 of 194 and thyroid stimulating immunoglobulin is 2.7, peak troponin level 1.13. HISTORY OF PRESENT ILLNESS/HOSPITAL COURSE: Adriana Altamirano is a 58-year-old white female with past medical history significant for tobacco use and chronic back pain who presented to the emergency department on 09/13/19 due to shortness of breath. She was initially requiring BiPAP on arrival to the emergency department, but ultimately by time of admission was comfortable on 4 L of oxygen via nasal cannula. She was experiencing tremors for weeks leading up to the primary care provider visit 6 days prior to admission and was started on propranolol. For further details, please see admitting history and physical written by Dr. Thomas Gil. She was additionally experiencing chest pain and was found to have an elevated troponin. At its highest point, it was elevated to 1.13 and cardiac catheterization was performed with the findings as listed above by Dr. Swan. Given the new decreased ejection fraction as well, there was concern for new cardiomyopathy. She had thyroid function test consistent with hyperthyroidism and ultimately by day of discharge, thyroid immunoglobulin was found to be 2.7 consistent with likely Graves' disease. She was seen in consultation on the day after admission by Dr. Esparza who checked the anti-TSIG, anti-TPO and anti-TG. At that time, he did not recommend iodine uptake study due to her cardiac catheterization and recommended empiric treatment of hyperthyroidism with methimazole, additionally recommended IV steroids and nonselective beta blockers. I am considering this was quite possible that propranolol triggered her shortness of breath, although that cannot be determined. Given the appearance of the patient's chest x-ray with hyperinflated lungs and the patient's tobacco use, it is quite possible she has an underlying undiagnosed COPD. The propranolol may have triggered some respiratory distress in that setting of her also having an upper respiratory infection, which may have triggered a COPD exacerbation. Given the suspicion of a COPD exacerbation causing her hypoxia, the patient actually initially started on IV steroids then this was later transitioned to prednisone with ultimate goal of tapering, which was also congruent with the oral steroids that Dr. Esparza recommended. The patient was monitored on telemetry during the entirety of her hospital stay. She initially was having difficulty with control of her heart rate and Cardiology was involved with adjusting her metoprolol. Ultimately on day of discharge, the patient was quite stable on 75 mg b.i.d. metoprolol succinate and her heart rate was in the 70s and 80s for the entirety of her 24-hour period since that medication adjustment. On day prior to discharge, the patient 's limited echo was repeated and she had resolution of reduced ejection fraction. It is quite possible that she had a stress cardiomyopathy at her presentation which caused type 2 NSTEMI. However, at this point, this appears resolved. Additionally, during her hospital stay, smoking cessation was discussed and she was provided symptomatic relief of her upper respiratory infection with Tessalon Perles and Flonase nasal spray, which she found to be quite beneficial. On day of discharge, the patient is feeling well. She denies racing heartbeat, chest pain, difficulty breathing. She endorses that her cough is improved. She did mention an episode of acid reflux after dinner yesterday evening but this resolved on its own. The patient feels that she is less diaphoretic today. PHYSICAL EXAM ON DAY OF DISCHARGE: General: Overweight white female lying up in the hospital bed, appearing comfortable in bed, in no acute distress. Head: Normocephalic, atraumatic. Eyes: PERRL. Sclerae anicteric. ENT: Mucous membranes moist. Neck: Supple. Lungs: Clear to auscultation throughout, though diminished breath sounds. Cardio: Regular rhythm without murmurs, rubs , or gallops. Abdomen: Soft, nontender, nondistended. No epigastric tenderness. No hepatosplenomegaly appreciated. Extremities: No clubbing, cyanosis or edema. Neuro: The patient is alert and oriented x3. No focal deficits. No tremors. Able to move all extremities. Skin: Warm, dry, and intact. DISCHARGE PLAN: Diet: Regular unrestricted diet. Activity: The patient may return to regular activity as tolerated. She was advised to please return to the emergency department if she is experiencing shortness of breath, rapid heart rate, fever or chills, loss of consciousness, lower extremity edema, visual changes. She was provided with followup instructions regarding her post cardiac catheterization. She is to follow up with Dr. Esparza in 1 to 2 weeks and she has an appointment already scheduled to follow up with Dr. Swan for 09/21/19. She should follow up with her primary provider, Dr. Rivas in approximately 1 week. At this time, scheduling a later outpatient PFT would be of benefit to the patient to confirm possibility for COPD. The patient was advised to complete the steroid taper as prescribed and to avoid NSAID use now that she is taking baby aspirin daily. Anti-TPO and anti-TG labs are pending at time of discharge. DISCHARGE MEDICATIONS: New medications: 1. Aspirin 81 mg p.o. daily. 2. Lipitor 10 mg p.o. daily. 3. Tessalon Perles 100 mg p.o. b.i.d. p.r.n. cough. 4. Flonase nasal spray 2 sprays both nares daily. 5. Lisinopril 2.5 mg p.o. daily. 6. Methimazole 5 mg p.o. daily. 7. Metoprolol succinate 75 mg p.o. b.i.d. 8. Nicotine patch 40 mg per 24 hours 1 patch transdermally daily. 9. Prednisone 40 mg x1 day, 30 mg x2 days, 20 mg x2 days, 10 mg x2 days, then discontinue. Continued home medications: 1. Tramadol 50 mg p.o. q.6 hours p.r.n. pain. 2. Senokot 3 tabs p.o. q.p.m. 3. Amitriptyline 10 mg p.o. daily. 4. Betamethasone dipropionate 0.05% cream b.i.d. p.r.n. sun poisoning. 5. Morphine sulfate 60 mg p.o. daily. 6. Carisoprodol 350 mg p.o. 4 times a day p.r.n. pain. 7. Colestipol 1 g p.o. b.i.d. 8. Esomeprazole 60 mg p.o. b.i.d. CONDITION ON DISCHARGE: Stable. DISPOSITION: Home. TIME SPENT: Approximately 45 minutes were spent on this discharge, approximately half this time was spent at the bedside evaluating the patient and discussing plan of care. SHANEKA STEWART [id number]/[facility] #: [id number] MENDOZA
== END 2019-09-18 13:10 | disposition home or self-care (01) | DRG 280 ==
LOC: ED 04:39 → ICU 07:40 → MEDTELE 14:51
PROVIDERS: ADMIT Internal Medicine; ATTEND Internal Medicine
PROC: 5A09357 Assistance with Respiratory Ventilation, Less than 24 Consecutive Hours, Continuous Positive Airway Pressure (ICD-10-PCS; 2019-09-13)
PROC: B2111ZZ Fluoroscopy of Multiple Coronary Arteries using Low Osmolar Contrast (ICD-10-PCS; principal; 2019-09-13 09:45)
DX: I51.81 Takotsubo syndrome (principal); I21.A1 Myocardial infarction type 2; J96.01 Acute respiratory failure with hypoxia; I50.21 Acute systolic (congestive) heart failure; J44.1 Chronic obstructive pulmonary disease with (acute) exacerbation; E05.00 Thyrotoxicosis with diffuse goiter without thyrotoxic crisis or storm; R00.0 Tachycardia, unspecified; E78.5 Hyperlipidemia, unspecified; E66.9 Obesity, unspecified; E21.3 Hyperparathyroidism, unspecified; I11.0 Hypertensive heart disease with heart failure; K21.9 Gastro-esophageal reflux disease without esophagitis; M19.012 Primary osteoarthritis, left shoulder; Z96.652 Presence of left artificial knee joint; M81.0 Age-related osteoporosis without current pathological fracture; F17.210 Nicotine dependence, cigarettes, uncomplicated; W57.XXXA Bitten or stung by nonvenomous insect and other nonvenomous arthropods, initial encounter; G89.29 Other chronic pain; J06.9 Acute upper respiratory infection, unspecified; M54.9 Dorsalgia, unspecified; R79.89 Other specified abnormal findings of blood chemistry; Z88.5 Allergy status to narcotic agent; Z88.6 Allergy status to analgesic agent; Z88.8 Allergy status to other drugs, medicaments and biological substances; Z87.442 Personal history of urinary calculi; Z98.1 Arthrodesis status; Z72.89 Other problems related to lifestyle; Z68.33 Body mass index [BMI] 33.0-33.9, adult
CPT/HCPCS: 36415; 71045; 78582; 80048; 80053; 80061; 82550; 82553; 82803; 83036; 83880; 84439; 84443; 84445; 84479; 84484; 85025; 85379; 85610; 85730; 86618; 86850; 86900; 86901; 87641; 93005; 93306; 93308; 93454; 94640; 99156; 99284; A9270-GY; A9540; A9558; C1760; C1887; C8924; J1200; J1644; J2250; J2920; J3010; J3490; J7512; J7611

== ENCOUNTER 2019-10-18 15:21 | Observation (INO) | payer MEDICARE, OTHER ==
--- NOTE | 2019-10-18 16:21 | ED ---
Lower Extremity - HPI Summary HPI Summary: This pt is a 58 y/o female presenting to [facility] c/o bilateral leg swelling and pain for the past couple of weeks. Pt states her swelling and pain have been worsening. She also reports SOB and cough. Pt describes productive cough with dark sputum. Denies chest pain, nausea, vomiting, abd pain. Pt states she sleeps in an upright position otherwise if she is flat it is hard to breathe. Pt states she has been wearing compression stockings intermittently ever since her spine surgery. She notes she was hospitalized and discharged home about 1 month ago. Pt does not know if she takes diuretics. - History of Current Complaint Chief Complaint: EDExtremityLower Stated Complaint: LEG PAIN PER PT Time Seen by Provider: 10/18/19 15:51 Hx Obtained From: Patient Onset/Duration: Weeks Severity Currently: Moderate Pain Intensity: 4 Pain Scale Used: 0-10 Numeric Timing: Lasting Weeks Location: Is Discrete @ - bilateral legs Character Of Pain: Aching Associated Signs And Symptoms: Positive: Swelling, Other - POSITIVE: cough, SOB.. Negative: Fever, Weakness, Dizziness, Abdominal Pain, Knee Pain Aggravating Factor(s): Nothing Alleviating Factor(s): Nothing - Allergies/Home Medications Allergies/Adverse Reactions: Allergies Allergy/AdvReac Type Severity Reaction Status Date / Time Adhesive Tape Allergy Swelling Verified 09/13/19 05:17 [Tegaderm Dressing] cholestyramine Allergy Rash Verified 09/13/19 05:17 diphenhydramine AdvReac Hives Verified 09/13/19 15:51 [From Benadryl] gabapentin AdvReac See Comment Verified 09/13/19 15:51 guaifenesin [From Mucinex] AdvReac Unknown Verified 09/13/19 15:51 Reaction Details loratadine [From Claritin-D] AdvReac Hives Verified 09/13/19 15:51 methylcellulose AdvReac Unknown Verified 09/13/19 15:51 [From Citrucel] Reaction Details morphine AdvReac Nausea And Verified 09/13/19 15:51 Vomiting pseudoephedrine AdvReac Hives Verified 09/13/19 15:51 [From Claritin-D] Photosensitive Allergy Rash Uncoded 01/14/18 11:54 PMH/Surg Hx/FS Hx/Imm Hx Endocrine/Hematology History: Reports: Hx Thyroid Disease, Hx Anemia - HISTORY OF, not recent Denies: Hx Blood Disorders, Hx Diabetes Cardiovascular History: Denies: Hx Congestive Heart Failure, Other Cardiovascular Problems/Disorders Respiratory History: Denies: Hx Asthma, Hx Chronic Obstructive Pulmonary Disease (COPD), Other Respiratory Problems/Disorders GI History: Reports: Hx Gastroesophageal Reflux Disease - STATES HAS TOO MUCH STOMACH ACID, Other GI Disorders - cholecystectomy History: Reports: Hx Kidney Stones - history of, none recent Denies: Other Problems/Disorders Musculoskeletal History: Reports: Hx Arthritis - left knee(replaced), left shoulder, Hx Back Problems - spinal fusion, chronic back pain, Hx Osteoporosis, Hx Tendonitis - carpal tunnel bilateral arms, Other Musculoskeletal History - DEGENERATIVE DISC DISEASE, STENOSIS Sensory History: Reports: Hx Contacts or Glasses Denies: Hx Hearing Aid Opthamlomology History: Reports: Hx Contacts or Glasses Neurological History: Denies: Other Neuro Impairments/Disorders - Cancer History Hx Chemotherapy: No Hx Radiation Therapy: No - Surgical History Surgery Procedure, Year, and Place: BACK SURGERY X2- Fusion T-2 to sacrum. GALLBLADDER REMOVED. RIGHT KNEE MENISCUS AND ACL REPAIRED. LEFT KNEE REPLACEMENT-2016. LEFT BREAST LIPOMA REMOVED. LEFT THIGH- LIPOMA REMOVED. UTERINE ABLATION. TUBAL RUPTURE- TUBE REMOVED Hx Anesthesia Reactions: No Infectious Disease History: No Infectious Disease History: Denies: Traveled Outside the [place] in Last 30 Days - Family History Known Family History: Negative: Diabetes - Social History Alcohol Use: Occasionally Hx Substance Use: No Substance Use Type: Reports: None Hx Tobacco Use: Yes Smoking Status (MU): Current Every Day Smoker Type: Cigarettes Amount Used/How Often: 3/4 ppd Review of Systems Negative: Fever, Chills Negative: Erythema Negative: Sore Throat Negative: Chest Pain Positive: Shortness Of Breath, Cough Negative: Abdominal Pain, Vomiting, Nausea Negative: dysuria, hematuria Musculoskeletal: Other - POSITIVE: bilateral leg pain Positive: Edema - in lower extremities. Negative: Myalgia Negative: Rash Neurological: Other - NEGATIVE: dizziness All Other Systems Reviewed And Are Negative: Yes Physical Exam - Summary Physical Exam Summary: Constitutional: Well-developed, Well-nourished, Alert. (-) Distressed Skin: Warm, Dry HENT: Normocephalic; Atraumatic Eyes: Conjunctiva normal Neck: Musculoskeletal ROM normal neck. (-) JVD, (-) Stridor, (-) Tracheal deviation Cardio: Rhythm regular, rate normal, Heart sounds normal; Intact distal pulses; The pedal pulses are 2+ and symmetric. Radial pulses are 2+ and symmetric. (-) Murmur Pulmonary/Chest wall: Effort normal. (-) Respiratory distress, Mild crackles in the bases of the lungs Abd: Soft, (-) tenderness, (-) Distension, (-) Guarding, (-) Rebound Musculoskeletal: (-) Edema Lymph: (-) Cervical adenopathy Neuro: Alert, Oriented x3 Psych: Mood and affect Normal Triage Information Reviewed: Yes Vital Signs On Initial Exam: Initial Vitals Temp Pulse Resp BP Pulse Ox 97.8 F 88 16 148/96 97 10/18/19 15:25 10/18/19 15:25 10/18/19 15:25 10/18/19 15:25 10/18/19 15:25 Vital Signs Reviewed: Yes Procedures - Sedation Patient Received Moderate/Deep Sedation with Procedure: No Diagnostics - Vital Signs Vital Signs Temp Pulse Resp BP Pulse Ox 10/18/19 15:25 97.8 F 88 16 148/96 97 - Laboratory Result Diagrams: 10/18/19 16:17 10/18/19 16:17 Lab Statement: Any lab studies that have been ordered have been reviewed, and results considered in the medical decision making process. - Radiology Chest XR Radiology Interpretation Completed By: Radiologist Summary of Radiographic Findings: IMPRESSION: Increased interstitial lung markings as well as density of the posterior costophrenic angle could be due to pulmonary edema, pneumonitis or drug toxicity. Dr. Magana has reviewed this report. - EKG 16:00 Cardiac Rate: NL - at 62 bpm EKG Rhythm: Sinus Rhythm Summary of EKG Findings: EKG at 1600 shows normal sinus rhythm at a rate of 62 bpm. No STEMI. Lower Extremity Course/Dx - Course Assessment/Plan: Pt is a 58 y/o female presenting to [facility] c/o bilateral leg swelling and pain for the past couple of weeks. Pt states her swelling and pain have been worsening. She also reports SOB and cough. Pt describes productive cough with dark sputum. Denies chest pain, nausea, vomiting, abd pain. Pt states she sleeps in an upright position otherwise if she is flat it is hard to breathe. Lab results shows hemoglobin of 11.7, hematocrit of 34, potassium of 3.1, BUN of 3, alkaline phosphatase of 149, BNP of 390, total protein of 5.2. Chest XR shows increased interstitial lung markings as well as density of the posterior costophrenic angle could be due to pulmonary edema, pneumonitis or drug toxicity. Discussed the case with Dr. Baptiste, hospitalist, who accepted the pt for admission. - Diagnoses Provider Diagnoses: CHF exacerbation - Physician Notifications Discussed Care Of Patient With: Luma Baptiste - hospitalist Time Discussed With Above Provider: 17:02 Instructed by Provider To: Admit As Inpatient Discharge ED - Sign-Out/Discharge Documenting (check all that apply): Patient Departure - Admit to [facility] - Discharge Plan Condition: Stable Disposition: ADMITTED TO [facility] Referrals: Jamison Rivas MD [Primary Care Provider] - - Attestation Statements Document Initiated by Scribe: Yes Documenting Scribe: Violet Bell Provider For Whom Scribe is Documenting (Include Credential): James Magana MD Scribe Attestation: Violet Padilla, scribed for James Magana MD on 10/18/19 at 1755. Status of Scribe Document: Ready
[2019-10-18 16:30] LABS: Hematocrit 34 % (35-47); Hemoglobin 11.7 g/dL (12.0-16.0); Mean Corpuscular HGB Conc 35 g/dL (31-36); Mean Corpuscular Hemoglobin 31 pg (27-31); Mean Corpuscular Volume 88 fL (80-97); Mean Platelet Volume 9.1 fL (7.4-10.4); Platelet Count 292 10^3/uL (150-450); Red Blood Count 3.83 10^6 /uL (3.70-4.87); Red Cell Distribution Width 13 % (10-15); White Blood Count 5.7 10^3/uL (3.5-10.8)
--- OUTSIDE RECORDS SUMMARY | 2019-10-18 16:37 | XMS REPORT | Continuity of Care Document ---
:1960 External Reference #:[id number] Author Name Jermaine Esparza MD (transmitted by agent of provider Adriana Covert) Address [address] [place] [address] Care Team Providers Name Role Phone Larissa Cohn NP - Family Care Team Information Plant Sciences Professor [phone] Jamison Rivas MD - Family Medicine Care Team Information Plant Sciences Professor Problems Description No Information Available Social History Type Date Description Comments Sex Unknown Tobacco Use Start: Unknown current cigarette smoker Smoking Status Reviewed: 09/30/19 current cigarette smoker ETOH Use Currently consumes 2 per week alcohol Tobacco Use Start: Unknown Patient is a current 1/2 - 1 ppd smoker, smokes every day Exercise Exercises regularly 3 - 5 times weekly Type/Frequency walking Allergies, Adverse Reactions, Alerts Active Allergies Reaction Severity Comments Date Morphine liqiud only N/V Moderate vomiting and sick to 01/21/2011 stomach Neurontin anxiety Moderate 01/21/2011 01/23/2011 Tegaderm skin swelling 09/21/2019 Cholestyramine Resin hives 09/21/2019 Deconex hives 09/21/2019 Medications Active Medications SIG Qnty Indications Ordering Date Provider Dok Plus Take 4 tablets by Unknown 09/20/2019 50-8.6mg mouth once daily as Tablets needed Morphine Sulfate ER take 1 tablet by Unknown 09/20/2019 mouth once daily, 60mg Tablets ER maximum daily dose of 1 Atorvastatin Calcium 1 by mouth every day Unknown 09/20/2019 10mg Tablets Metoprolol Succinate 1.5 tablets by mouth Unknown 09/20/2019 ER twice every day 50mg Tablets ER 24HR Methimazole 5mg by mouth once Unknown 09/20/2019 5mg daily with food Tablets Benzonatate take one capsule by Unknown 09/20/2019 100mg mouth twice daily as Capsules needed for cough. Aspirin 81 1 by mouth every day Unknown 09/20/2019 81mg Tablets Lisinopril 1/2 tablet by mouth Unknown 09/20/2019 5mg every day Tablets Fluticasone 2 sprays each nostril Unknown 09/20/2019 Propionate qd. 50mcg/Act Suspension Colestipol HCL Take one tablet by Unknown 09/20/2019 1gm mouth twice a day Tablets Multivitamin Take one tablet once Unknown 09/20/2019 daily Fish Oil 1000 MG Take one tablet bid Unknown 09/20/2019 Cleocin 1 applicator 1units Romy Vo, 01/28/2011 2% Cream intravaginally hs for M.D., FACP 7 nights Celebrex 1 by mouth twice 90caps Romy Slaughteron, 01/21/2011 200mg every day M.D., FACP Capsules Nexium 1 by mouth twice 30caps Romy Slaughteron, 01/21/2011 40mg Capsules daily M.D., FACP Tramadol HCL four times a day as 100tabs Romy Slaughteron, 01/21/2011 50mg needed M.D., FACP Tablets Soma take one tablet by 60tabs Romy Slaughteron, 01/21/2011 350mg Tablets mouth four times a M.D., FACP day as needed Amitriptyline HCL 2 by mouth once daily 30tabs Romy Slaughteron, 01/21/2011 at bedtime M.D., FACP 10mg Tablets History Medications Prednisone 4 tablets by mouth for Unknown 09/20/2019 - 09/26/2019 10mg Tablets 1day ,3 tablets by mouth for 2 days, 2 tablets by mouth for 2 days, 1 tablet by mouth for 2 days Medications Administered in Office Medication SIG Qnty Indications Ordering Provider Date No Injection Leland Reyes M.D. 09/10/2018 Injection Immunizations CPT Code Status Date Vaccine Lot # [id number] Given 01/23/2011 Tdap - Tetanus/Diptheria/Acellular Pertussis [id number] Vital Signs Date Vital Result Comment 09/30/2019 11:34am Height 59.5 inches 4'11.50" Weight 160.00 lb w/ shoes Heart Rate 76 /min BP Systolic Sitting 136 mmHg BP Diastolic Sitting 72 mmHg BMI (Body Mass Index) 31.8 kg/m2 09/21/2019 1:34pm Height 59.5 inches 4'11.50" Weight 157.25 lb Heart Rate 80 /min R. radial, regular BP Systolic Sitting 110 mmHg Ra, reg cuff BP Diastolic Sitting 70 mmHg Ra, reg cuff BMI (Body Mass Index) 31.2 kg/m2 Ejection Fraction 55-60% 09/17/19 Procedures Date Code Description Status 01/14/2018 [id number] Colonoscopy Completed 01/31/2011 [id number] Bone Mineral Density Test Completed 01/31/2011 [id number] Mammogram Completed 11/10/2009 [id number] Colonoscopy Completed 02/16/2009 [id number] Mammogram Completed Medical Devices Description No Information Available Encounters Type Date Location Provider Dx Diagnosis Office Visit 09/21/2019 [facility] Ovidio Painter I42.8 Other cardiomyopathies 1:15p Of [employer] AT [facility] Angel Swan R00.0 Tachycardia, unspecified I51.81 Takotsubo syndrome Office Visit 09/17/2019 [facility] Macie E05.90 Thyrotoxicosis, unsp 10:20a [employer] PA-C without thyrotoxic Hospitalists crisis or storm I42.8 Other cardiomyopathies J96.01 Acute respiratory failure with hypoxia J44.9 Chronic obstructive pulmonary disease, unspecified R00.0 Tachycardia, unspecified M54.9 Dorsalgia, unspecified R79.89 Other specified abnormal findings of blood chemistry E78.5 Hyperlipidemia, unspecified W57.xxxA Bit/stung by nonvenom insect & oth nonvenom arthropods, init Office Visit 09/16/2019 [facility] Macie E05.90 Thyrotoxicosis, unsp 10:20a [employer]ocalex PA-C without thyrotoxic Hospitalists crisis or storm I42.8 Other cardiomyopathies J96.01 Acute respiratory failure with hypoxia J44.9 Chronic obstructive pulmonary disease, unspecified R00.0 Tachycardia, unspecified M54.9 Dorsalgia, unspecified R79.89 Other specified abnormal findings of blood chemistry E78.5 Hyperlipidemia, unspecified Z72.0 Tobacco use Office Visit 09/15/2019 [facility] Corrie J96.01 Acute 10:19a Assoc,SHANEKA Holman respiratory Hospitalists failure with hypoxia J44.9 Chronic obstructive pulmonary disease, unspecified I42.8 Other cardiomyopathies R79.89 Other specified abnormal findings of blood chemistry E05.90 Thyrotoxicosis, unsp without thyrotoxic crisis or storm R00.0 Tachycardia, unspecified E78.5 Hyperlipidemia, unspecified M54.9 Dorsalgia, unspecified Z72.0 Tobacco use Office Visit 09/14/2019 [facility] Corrie J96.01 Acute 10:19a Assoc,SHANEKA Holman respiratory Hospitalists failure with hypoxia J44.9 Chronic obstructive pulmonary disease, unspecified I42.8 Other cardiomyopathies R79.89 Other specified abnormal findings of blood chemistry E05.90 Thyrotoxicosis, unsp without thyrotoxic crisis or storm R00.0 Tachycardia, unspecified E78.5 Hyperlipidemia, unspecified M54.9 Dorsalgia, unspecified Z72.0 Tobacco use Office Visit 09/14/2019 [facility] E05.90 Thyrotoxicosis, unsp 10:57a [facility] without thyrotoxic Hat Block Maker crisis or storm R06.02 Shortness of breath Office Visit 09/13/2019 10:17a [facility] Alice J44.1 Chronic Assoc,alex Jackson M.D. 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 09/21/2019 R00.0 Tachycardia, unspecified Ovidio Swan M.D. 09/21/2019 I51.81 Takotsubo syndrome Ovidio Swan M.D. 09/17/2019 E05.90 Thyrotoxicosis, unspecified without Macie O'richi, PA-C thyrotoxic crisis or storm 09/17/2019 I42.8 Other cardiomyopathies Macie O'richi, PA-C 09/17/2019 J96.01 Acute respiratory failure with hypoxia Macie Altamirano, PA -C 09/17/2019 J44.9 Chronic obstructive pulmonary disease, Macie O'richi, PA- C unspecified 09/17/2019 R00.0 Tachycardia, unspecified Macie O'richi, PA-C 09/17/2019 M54.9 Dorsalgia, unspecified Macie O'richi, PA-C 09/17/2019 R79.89 Other specified abnormal findings of blood Macie Salinas'richi , PA-C chemistry 09/17/2019 E78.5 Hyperlipidemia, unspecified Macie O'richi, PA-C 09/17/2019 W57.xxxA Bitten or stung by nonvenomous insect and Macie Salinas' richi PA-C other nonvenomous arthropods, initial encounter 09/16/2019 E05.90 Thyrotoxicosis, unspecified without Macie O'richi, PA-C thyrotoxic crisis or storm 09/16/2019 I42.8 Other cardiomyopathies Macie Salinas'richi, PA-C 09/16/2019 J96.01 Acute respiratory failure with hypoxia Macie Salinas'richi, PA -C 09/16/2019 J44.9 Chronic obstructive pulmonary disease, Macie O'richi, PA- C unspecified 09/16/2019 R00.0 Tachycardia, unspecified Macie O'richi, PA-C 09/16/2019 M54.9 Dorsalgia, unspecified Macie O'richi, PA-C 09/16/2019 R79.89 Other specified abnormal findings of blood Macie Salinas'richi , PA-C chemistry 09/16/2019 E78.5 Hyperlipidemia, unspecified Macie O'richi, PA-C 09/16/2019 Z72.0 Tobacco use Macie Salinas'richi, PA-C 09/15/2019 J96.01 Acute respiratory failure with hypoxia SHANEKA Whitaker 09/15/2019 J44.9 Chronic obstructive pulmonary disease, Corriejed Collinsham, PA unspecified 09/15/2019 I42.8 Other cardiomyopathies Corriejed Tate, PA 09/15/2019 R79.89 Other specified abnormal findings of blood Corrie Tate PA chemistry 09/15/2019 E05.90 Thyrotoxicosis, unspecified without Corriejed Tate PA thyrotoxic crisis or storm 09/15/2019 R00.0 Tachycardia, unspecified Corriejed Tate, PA 09/15/2019 E78.5 Hyperlipidemia, unspecified Corrie Tate, PA 09/15/2019 M54.9 Dorsalgia, unspecified Corrie Tate, PA 09/15/2019 Z72.0 Tobacco use Corriejed Tate, PA 09/14/2019 E05.90 Thyrotoxicosis, unspecified without Jermaine Esparza MD thyrotoxic crisis or storm 09/14/2019 J96.01 Acute respiratory failure with hypoxia Corrie Tate PA 09/14/2019 R06.02 Shortness of breath Jermaine Esparza MD 09/14/2019 J44.9 Chronic obstructive pulmonary disease, Corriejed [place]ham, PA unspecified 09/14/2019 I42.8 Other cardiomyopathies Corriejed Tate, PA 09/14/2019 R79.89 Other specified abnormal findings of blood Corrie Tate PA chemistry 09/14/2019 E05.90 Thyrotoxicosis, unspecified without Corriejed Tate PA thyrotoxic crisis or storm 09/14/2019 R00.0 Tachycardia, unspecified Corriejed Tate, PA 09/14/2019 E78.5 Hyperlipidemia, unspecified Corriejed Collinsham, PA 09/14/2019 M54.9 Dorsalgia, unspecified Corrie Tate, PA 09/14/2019 Z72.0 Tobacco use Corriejed Tate, PA 09/13/2019 J44.1 Chronic obstructive pulmonary disease with Alice Jackson M.D. (acute) exacerbation 09/13/2019 J96.01 Acute respiratory failure with hypoxia Alice Jackson M.D. 09/13/2019 R79.89 Other specified abnormal findings of blood Alice Jackson M.D. chemistry 09/13/2019 E05.90 Thyrotoxicosis, unspecified without Alice Jackson M.D. thyrotoxic crisis or storm 09/13/2019 M54.9 Dorsalgia, unspecified Alice Jackson M.D. 09/13/2019 Z72.0 Tobacco use Alice Jackson M.D. Plan of Treatment Future Appointment(s):01/18/2020 1:20 pm - Jermaine Esparza MD at [facility]11/24/2019 1:30 pm - Ovidio Swan M.D. at [facility]11/11/2019 1:00 pm - [place] ECHO Schedule at [facility]09/30/2019 - Jermaine Esparza MDE05.90 Thyrotoxicosis, unspecified without thyrotoxic crisis or stormFollow up:JanuaryInstructions:1. Blood tests today. 2. We will contact you to schedule a thyroid ultrasound. 3. Repeat blood testsin November. 4. Return for a follow-up visit in January.I42.8 Other [id number] Thyrotoxicosis with toxic multinodular goiter without thyrotoxic crisis or stormNew Xrays:US Thyroid, Ordered: 09/30/19 Functional Status Description No Information Available Mental Status Description No Information Available Referrals Description No Information Available
--- OUTSIDE RECORDS SUMMARY | 2019-10-18 16:37 | XMS REPORT | Continuity of Care Document ---
:1960 External Reference #:[id number] Author Name Ovidio Swan M.D. (transmitted by agent of provider Adriana Covert) Address [address] [facility] [place] [address] Care Team Providers Name Role Phone Larissa Cohn NP - Family Care Team Information Superintendent Marine [phone] Jamison Rivas MD - Family Medicine Care Team Information Superintendent Marine Problems Description No Information Available Social History Type Date Description Comments Sex Unknown Tobacco Use Start: Unknown current cigarette smoker Smoking Status Reviewed: 09/21/19 current cigarette smoker ETOH Use Currently consumes 2 per week alcohol Tobacco Use Start: Unknown Patient is a current 1/2 - 1 ppd smoker, smokes every day Exercise Exercises regularly 3 - 5 times weekly Type/Frequency Allergies, Adverse Reactions, Alerts Active Allergies Reaction Severity Comments Date Morphine liqiud only N/V Moderate 01/21/2011 Neurontin anxiety Moderate 01/21/2011 01/23/2011 Tegaderm skin [...] mouth every day Unknown 09/20/2019 10mg Tablets Prednisone 4 tablets by mouth Unknown 09/20/2019 10mg for 1day ,3 tablets Tablets by mouth for 2 days, 2 tablets by mouth for 2 days, 1 tablet by mouth for 2 days Metoprolol Succinate 1.5 tablets by mouth Unknown [...] bid Unknown 09/20/2019 Cleocin 1 applicator 1units Romykerrie Vo, 01/28/2011 2% Cream intravaginally hs for M.D., FACP 7 nights Celebrex 1 by mouth twice 90caps Romy Vo, 01/21/2011 200mg every day M.D., FACP Capsules Nexium 1 by mouth twice 30caps Romy Slaughteron, 01/21/2011 40mg Capsules daily M.D., FACP DR Tramadol HCL four times a day as 100tabs Romy Slaughteron, 01/21/2011 50mg needed M.D., FACP Tablets Soma take one tablet by 60tabs Romy Slaughteron, 01/21/2011 350mg Tablets mouth four times a M.D., FACP day as needed Avinza 1 capsule by mouth Romy Vo, 01/21/2011 60mg Caps ER daily M.D., FACP 24HR Amitriptyline HCL 2 by mouth once daily 30tabs Romy Vo, 01/21/2011 at bedtime M.D., FACP 10mg Tablets Medications Administered in Office Medication SIG Qnty Indications Ordering Provider Date No Injection Leland Reyes M.D. 09/10/2018 Injection Immunizations CPT Code Status Date Vaccine Lot # [id number] Given 01/23/2011 Tdap - Tetanus/Diptheria/Acellular Pertussis [id number] Vital Signs Date Vital Result Comment 09/21/2019 1:34pm Height 59.5 inches 4'11.50" Weight 157.25 lb Heart Rate 80 /min R. radial, regular BP Systolic Sitting 110 mmHg Ra, reg cuff BP Diastolic Sitting 70 mmHg Ra, reg cuff BMI (Body Mass Index) 31.2 kg/m2 Ejection Fraction 55-60% 09/17/19 09/24/2018 10:25am Height 59.5 inches 4'11.50" Heart Rate 80 /min BP Systolic 138 mmHg BP Diastolic 86 mmHg Body Temperature 98.6 F Pain Level 5 Results Description No Information Available Procedures Date Code Description Status 01/14/2018 [id number] Colonoscopy Completed 01/31/2011 [id number] Bone Mineral Density Test Completed 01/31/2011 [id number] Mammogram Completed 11/10/2009 [id number] Colonoscopy Completed 02/16/2009 [id number] Mammogram Completed Medical Devices Description No Information Available Encounters Type Date Location Provider Dx Diagnosis Office Visit 09/17/2019 [facility] Macie Altamirano, E05.90 Thyrotoxicosis, 10:20a alex Mckeon PA-C unsp without Hospitalists thyrotoxic crisis or storm I42.8 Other cardiomyopathies J96.01 Acute respiratory failure with hypoxia J44.9 Chronic obstructive pulmonary disease, unspecified R00.0 Tachycardia, unspecified M54.9 Dorsalgia, unspecified R79.89 Other specified abnormal findings of blood chemistry E78.5 Hyperlipidemia, unspecified W57.xxxA Bit/stung by nonvenom insect & oth nonvenom arthropods, init Office Visit 09/16/2019 [facility] Macie E05.90 Thyrotoxicosis, unsp 10:20a alex Mckeon PA-C without thyrotoxic Hospitalists crisis or storm I42.8 Other cardiomyopathies J96.01 Acute respiratory failure with hypoxia J44.9 Chronic obstructive pulmonary disease, unspecified R00.0 Tachycardia, unspecified M54.9 Dorsalgia, unspecified R79.89 Other specified abnormal findings of blood chemistry E78.5 Hyperlipidemia, unspecified Z72.0 Tobacco use Office Visit 09/15/2019 [facility] Corrie J96.01 Acute 10:19a Assalex villar PA respiratory Hospitalists failure with hypoxia J44.9 Chronic obstructive pulmonary disease, unspecified I42.8 Other cardiomyopathies R79.89 Other specified abnormal findings of blood chemistry E05.90 Thyrotoxicosis, unsp without thyrotoxic crisis or storm R00.0 Tachycardia, unspecified E78.5 Hyperlipidemia, unspecified M54.9 Dorsalgia, unspecified Z72.0 Tobacco use Office Visit 09/14/2019 [facility] J96.01 Acute 10:19a Assoc,alex Tate PA respiratory Hospitalists failure with hypoxia J44.9 Chronic obstructive pulmonary disease, unspecified I42.8 Other cardiomyopathies R79.89 Other specified abnormal findings of blood chemistry E05.90 Thyrotoxicosis, unsp without thyrotoxic crisis or storm R00.0 Tachycardia, unspecified E78.5 Hyperlipidemia, unspecified M54.9 Dorsalgia, unspecified Z72.0 Tobacco use Office Visit 09/13/2019 10:17a [facility] J44.1 Chronic Assoc,alex Jackson M.D. obstructive Hospitalists pulmonary disease w (acute) exacerbation J96.01 Acute respiratory failure with hypoxia R79.89 Other specified abnormal findings of blood chemistry E05.90 Thyrotoxicosis, unsp without thyrotoxic crisis or storm M54.9 Dorsalgia, unspecified Z72.0 Tobacco use Assessments Date Code Description Provider 09/21/2019 I42.8 Other cardiomyopathies Ovidio Swan M.D. 09/21/2019 R00.0 Tachycardia, unspecified Ovidio Swan M.D. 09/17/2019 E05.90 Thyrotoxicosis, unspecified without SHA OakesC thyrotoxic crisis or storm 09/17/2019 I42.8 Other cardiomyopathies SHA OakesC 09/17/2019 J96.01 Acute respiratory failure with hypoxia SHANEKA Oakes -C 09/17/2019 J44.9 Chronic obstructive pulmonary disease, SHANEKA Oakes- C unspecified 09/17/2019 R00.0 Tachycardia, unspecified Macie Salinas'richi PA-C 09/17/2019 M54.9 Dorsalgia, unspecified Macie O'richi PA-C 09/17/2019 R79.89 Other specified abnormal findings of blood Macie Altamirano PA-C chemistry 09/17/2019 E78.5 Hyperlipidemia, unspecified Macie Brad'richiSHA cassidyC 09/17/2019 W57.xxxA Bitten or stung by nonvenomous insect and Macie stoddard PA-C other nonvenomous arthropods, initial encounter 09/16/2019 E05.90 Thyrotoxicosis, unspecified without Macie Altamirano PA-C thyrotoxic crisis or storm 09/16/2019 I42.8 Other cardiomyopathies SHA OakesC 09/16/2019 J96.01 Acute respiratory failure with hypoxia SHANEKA Oakes -C 09/16/2019 J44.9 Chronic obstructive pulmonary disease, SHA Oakes C unspecified 09/16/2019 R00.0 Tachycardia, unspecified SHANEKA Oakes-C 09/16/2019 M54.9 Dorsalgia, unspecified SHANEKA Oakes-C 09/16/2019 R79.89 Other specified abnormal findings of blood Macie Altamirano PA-C chemistry 09/16/2019 E78.5 Hyperlipidemia, unspecified SHANEKA Oakes-C 09/16/2019 Z72.0 Tobacco use SHA OakesC 09/15/2019 J96.01 Acute respiratory failure with hypoxia SHANEKA Whitaker 09/15/2019 J44.9 Chronic obstructive pulmonary disease, SHANEKA Whitaker unspecified 09/15/2019 I42.8 Other cardiomyopathies SHANEKA Whitaker 09/15/2019 R79.89 Other specified abnormal findings of blood SHANEKA Whitaker chemistry 09/15/2019 E05.90 Thyrotoxicosis, unspecified without SHANEKA Whitaker thyrotoxic crisis or storm 09/15/2019 R00.0 Tachycardia, unspecified Corrie Tate PA 09/15/2019 E78.5 Hyperlipidemia, unspecified SHANEKA Whitaker 09/15/2019 M54.9 Dorsalgia, unspecified Corrie Tate PA 09/15/2019 Z72.0 Tobacco use SHANEKA Whitaker 09/14/2019 J96.01 Acute respiratory failure with hypoxia SHANEKA Whitaker 09/14/2019 J44.9 Chronic obstructive pulmonary disease, SHANEKA Whitaker unspecified 09/14/2019 I42.8 Other cardiomyopathies SHANEKA Whitaker 09/14/2019 R79.89 Other specified abnormal findings of blood SHANEKA Whitaker chemistry 09/14/2019 E05.90 Thyrotoxicosis, unspecified without SHANEKA Whitaker thyrotoxic crisis or storm 09/14/2019 R00.0 Tachycardia, unspecified SHANEKA Whitaker 09/14/2019 E78.5 Hyperlipidemia, unspecified SHANEKA Whitaker 09/14/2019 M54.9 Dorsalgia, unspecified SHANEKA Whitaker 09/14/2019 Z72.0 Tobacco use SHANEKA Whitaker 09/13/2019 J44.1 Chronic obstructive pulmonary disease with [...] Alice Jackson M.D. Plan of Treatment Future Appointment(s):11/24/2019 1:30 pm - Ovidio Swan M.D. at [facility]11/11/2019 1:00 pm - [place] [facility] Schedule at [facility]09/30/2019 11:40 am - Jermaine Esparza MD at [facility]09/21/2019 - Ovidio Swan M.D.I42.8 Other cardiomyopathiesNew Orders:Echocardiogram, Ordered: 09/21/19Follow up:2 [id number] Tachycardia, unspecified Functional Status Description No Information Available Mental Status Description No Information Available Referrals Description No Information Available
--- OUTSIDE RECORDS SUMMARY | 2019-10-18 16:37 | XMS REPORT | Continuity of Care Document ---
:1960 External Reference #:[id number] Author Name Jose Bryant Care Team Providers Name Role Phone Larissa Cohn NP - Family Care Team Information Prefitter [phone] Jamison Rivas MD - Family Medicine Care Team Information Prefitter Problems Description No Information Available Social History Type Date Description Comments Sex Unknown ETOH Use Currently consumes 2 per week alcohol Tobacco Use Start: Unknown Patient is a current 1/2 - 1 ppd smoker, smokes every day Smoking Status Reviewed: 09/24/18 Patient is a current 1/2 - 1 ppd smoker, smokes every day Exercise Exercises regularly 3 - 5 times weekly Type/Frequency Allergies, Adverse Reactions, Alerts Active Allergies Reaction Severity Comments Date Morphine liqiud only N/V Moderate 01/21/2011 Neurontin anxiety Moderate 01/21/2011 01/23/2011 Medications Active Medications SIG Qnty Indications Ordering Date Provider Cleocin 1 applicator 1units Romy Slaughteron, 01/28/2011 2% Cream intravaginally hs for M.D., FACP 7 nights Celebrex 1 by mouth twice 90caps Romy Gilda, 01/21/2011 200mg every day M.D., FACP Capsules Nexium 1 by mouth once daily 30caps Romy Gilda, 01/21/2011 40mg Capsules M.D., FACP Tramadol HCL four times a day as 100tabs Romy Gilda, 01/21/2011 50mg needed M.D., FACP Tablets Soma take one tablet by 60tabs Romy Gilda, 01/21/2011 350mg Tablets mouth four times a M.D., FACP day as needed Avinza 1 capsule by mouth Romy Gilda, 01/21/2011 60mg Caps ER daily M.D., FACP 24HR Amitriptyline HCL 1 by mouth once daily 30tabs Romy Gilda, 01/21/2011 at bedtime as needed M.D., FACP 10mg Tablets Senna-Lax 2 tablets at bedtime 180tabs Romy Gilda, 8.6mg M.D., FACP Tablets Medications Administered in Office Medication SIG Qnty Indications Ordering Provider Date No Injection Leland Reyes M.D. 09/10/2018 Injection Immunizations CPT Code Status Date Vaccine Lot # [id number] Given 01/23/2011 Tdap - Tetanus/Diptheria/Acellular Pertussis [id number] Vital Signs Date Vital Result Comment 09/24/2018 10:25am Height 59.5 inches 4'11.50" Heart Rate 80 /min BP Systolic 138 mmHg BP Diastolic 86 mmHg Body Temperature 98.6 F Pain Level 5 09/10/2018 9:56am Heart Rate 72 /min BP Systolic 138 mmHg BP Diastolic 72 mmHg Body Temperature 98.5 F Pain Level 5 Results Description No Information Available Procedures Date Code Description Status 01/14/2018 [id number] Colonoscopy Completed 01/31/2011 [id number] Bone Mineral Density Test Completed 01/31/2011 [id number] Mammogram Completed 11/10/2009 [id number] Colonoscopy Completed 02/16/2009 [id number] Mammogram Completed Medical Devices Description No Information Available Encounters Description No Information Available Assessments Description No Information Available Plan of Treatment 09/24/2018 - Leland Reyes M.D.M19.172 Post-traumatic osteoarthritis, left ankle and footFollow up:after testing is completed Functional Status Description No Information Available Mental Status Description No Information Available Referrals Description No Information Available
[2019-10-18 16:40] LABS: Albumin 3.2 g/dL (3.2-5.2); Calcium 8.1 mg/dL (8.6-10.3); Potassium 3.1 mmol/L (3.5-5.0); Total Bilirubin 0.4 mg/dL (0.2-1.0)
[2019-10-18 16:46] LABS: Albumin/Globulin Ratio 1.6 (1-3); BUN/Creatinine Ratio 5.7 (8-20); EGFR African American 143.4 (>60); EGFR Non-African American 118.5 (>60); Total Protein 5.2 g/dL (6.4-8.9)
[2019-10-18 17:05] LABS: Troponin I 0.02 ng/mL (<0.03)
[2019-10-18] MEDS ORDERED: Potassium Chlor TAB* 20 MEQ TAB.ER PO ONE ×2 (17:44→20:38)
[2019-10-18] MEDS ORDERED: Acetaminophen TAB* 325 MG PO PRN (18:21)
[2019-10-18] MEDS ORDERED: Iohexol 350* (CONTRAST) 500 ML MDV IV ONE (18:29)
[2019-10-18 18:45] LABS: Magnesium 1.4 mg/dL (1.9-2.7)
[2019-10-18] MEDS ORDERED: Magnesium Sulf 4 GM/100 ML IV* 4,000 MG/100 ML BAG IVPB ONE (20:23)
[2019-10-18] MEDS ORDERED: Albuterol 2.5 MG/3 ML NEB.SOL* (0.083%) INH PRN (21:09)
[2019-10-18] MEDS ORDERED: Furosemide IV* 10 MG/ML 2 ML VIAL (20 MG) IV ONE (21:56)
[2019-10-18] MEDS ORDERED: ESOMEPRAZOLE MAGNESIUM PO SCH (22:00)
[2019-10-18] MEDS: Enoxaparin(*) 40 MG/0.4 ML SYR SUBCUT SCH (22:49)
[2019-10-18] MEDS: Senna TAB 8.6 mg* TAB PO SCH (22:50)
[2019-10-18] MEDS: traMADol TAB* 50 MG PO PRN (22:50)
[2019-10-18] MEDS: Docusate CAP* 100 MG PO SCH (22:50)
[2019-10-18] MEDS: Amitriptyline TAB* 10 MG PO SCH (22:51)
[2019-10-18] MEDS: Metoprolol Succinate XL TAB* 50 MG PO SCH (22:51)
[2019-10-18] MEDS: celeCOXIB CAP* 200 MG PO SCH (22:51)
[2019-10-18 23:32] LABS: Urine Appearance Clear; Urine Bilirubin Negative (Negative); Urine Blood 2+ (Negative); Urine Color Straw; Urine Glucose Negative (Negative); Urine Ketones Negative (Negative); Urine Nitrite Negative (Negative); Urine Protein Negative (Negative); Urine Specific Gravity 1.024 (1.010-1.030); Urine Urobilinogen Negative (Negative)
[2019-10-18 23:34] LABS: Urine Bacteria Absent (Absent); Urine Red Blood Cell Trace(0-2/hpf) (Absent); Urine Squamous Epithelial Cell Present (Absent); Urine White Blood Cell Trace(0-5/hpf) (Absent)
--- NOTE | 2019-10-18 23:35 | HP ---
CC: Dr. Rivas * HISTORY AND PHYSICAL: DATE OF ADMISSION: 10/18/19 PROVIDER: Ness Daley NP PRIMARY CARE PROVIDER: Dr. Rivas. ATTENDING PHYSICIAN WHILE IN THE HOSPITAL: Dr. Luma Baptiste * (dictated by Ness Daley NP) CHIEF COMPLAINT: Shortness of breath, leg swelling. HISTORY OF PRESENT ILLNESS: Ms. Altamirano is a 58-year-old female with a past medical history significant for hyperthyroid, GERD, hyperlipidemia, hypertension , chronic back pain, recent history of admission with thyroid storm, stress- induced cardiomyopathy with a reduced EF of 30% to 35%, recovered 4 days later to an EF 55% to 60%, who presented to the emergency room with complaints of bilateral leg swelling. She does report that she developed bilateral leg swelling on . It was progressively worse as the days have gone on. She also reports that she started with some shortness of breath on as well. She does report cough and congestion and cold symptoms intermittently. She does report nocturnal dyspnea. The patient does report that she was recently treated for COPD with exacerbation. She was on prednisone. She does report that she stopped prednisone on 09/25/19 due to her progressively worsening shortness of breath and leg swelling. The patient presented to the emergency room for further evaluation. While in the emergency room, the patient had routine lab work drawn. She was found to have an elevated D-dimer of 300, potassium of 3.1, magnesium 1.4, BNP of 390. Due to her shortness of breath and leg swelling, Hospital Medicine was asked to see and evaluate the patient for admission. PAST MEDICAL HISTORY: Significant for chronic back pain, hyperthyroid, GERD, hyperlipidemia, hypertension, possible recent stress cardiomyopathy, acute respiratory failure with hypoxia due to likely undiagnosed chronic obstructive pulmonary disease. PAST SURGICAL HISTORY: 1. Back surgery. 2. Left knee partial replacement. 3. Right knee ACL repair. 4. Lipoma removed. 5. Left breast lumpectomy. 6. Tubal removal due to tubal . 7. Ablation. 8. Cardiac catheterization. 9. Cholecystectomy. HOME MEDICATIONS: Include: 1. Colestipol 1 g twice daily. 2. Tramadol 50 mg p.o. q.6 hours as needed for pain. 3. Metoprolol succinate 75 mg p.o. b.i.d. 4. Multivitamin 1 tablet p.o. daily. 5. Soma 350 mg 4 times a day p.r.n., takes rarely. 6. Esomeprazole 40 mg p.o. b.i.d. 7. Celebrex 200 mg p.o. b.i.d. 8. Dok Plus 50/8.6 four tablets at bedtime. 9. Atorvastatin 10 mg p.o. daily. 10. Lisinopril 2.5 mg p.o. daily. 11. Fluticasone 50 mg 2 sprays daily. 12. Aspirin 81 mg p.o. daily. 13. Morphine 60 mg p.o. daily. 14. Amitriptyline 20 mg p.o. h.s. 15. Tessalon Perles 100 mg twice daily as needed for cough. ALLERGIES: PROPRANOLOL, MORPHINE, ADHESIVE TAPE, GABAPENTIN, and CHOLESTYRAMINE. FAMILY HISTORY: Father had a questionable history of CVA, had a history of Alzheimer's. No reported history of diabetes. Mother from colon cancer at the age of 68. SOCIAL HISTORY: The patient reports that she had stopped smoking, has not smoked since her last admission, prior to that she was smoking half a pack a day since her early 20s. She does report occasional alcohol use. No illicit drug use. Surrogate decision maker in the event, she is unable to make her own decision is her sister, Gladys Diaz. She is a full code. REVIEW OF SYSTEMS: The patient denies any fever, chills, unintended weight loss. Denies any chest pain. She does report edema to bilateral lower extremities, progressively worsening since . She does report occasional cough that is not productive. No hemoptysis. She does report progressively worsening shortness of breath since . No nausea, vomiting , diarrhea, abdominal pain, hematuria, or dysuria. Denies any focal weakness, sensory loss, visual complaints, dysphagia, arthralgias, myalgias, rashes, lesions, open sores, psychosis, or anxiety. PHYSICAL EXAMINATION GENERAL: At this time, Ms. Altamirano is a 58-year-old female. She is alert and oriented x3. She is in no acute distress. VITAL SIGNS: Blood pressure 150/84, heart rate 90, respirations 18, O2 saturation 99% on room air, temperature 98.0. HEENT: Head is atraumatic, normocephalic. Eyes: EOMs are intact. Sclerae anicteric and not pale. Oral mucosa appeared to be moist. NECK: Supple. LUNGS: Clear to auscultation bilaterally. No wheezes, rales, or rhonchi. They are diminished in the bases bilaterally. CARDIAC: S1, S2. Regular rate and rhythm. No murmurs, rubs, or gallops. ABDOMEN: Soft and nontender. Bowel sounds are present x4. EXTREMITIES: She is able to move all 4 extremities. There is no clubbing or cyanosis. She does have bilateral lower leg edema, nonpitting. NEUROLOGIC: She is awake, alert, oriented x3. Speech is clear. Thought process is intact. There is no gross focal deficits. SKIN: She does have scratches noted to bilateral lower extremities. DIAGNOSTIC STUDIES/LAB DATA: WBCs are 5.7, RBCs 3.83, hemoglobin 11.7, hematocrit is 34, platelet count 292. D-dimer was 300. Sodium 145, potassium 3.1, chloride 109, carbon dioxide is 31, anion gap was 5, BUN was 3, creatinine 0.53, glucose was 88, calcium 8.1, magnesium 1.4, ASTs were 24, ALTs were 22, alkaline phosphatase 149. Troponin was 0.02. BNP was 390. She had a chest x-ray, radiologist impression: Increased interstitial lung markings as well as density in the posterior costophrenic angle could be due to pulmonary edema, pneumonitis, or drug toxicity. She had a venous Doppler that showed no bilateral lower extremity deep vein thrombosis. She had an electrocardiogram, which showed sinus rhythm at a rate of 62, no ST or T- wave changes. ASSESSMENT AND PLAN: Ms. Altamirano is a 58-year-old female with a past medical history significant for chronic back pain; hyperthyroid; gastroesophageal reflux disease; hyperlipidemia; hypertension; recent cardiomyopathy, stress induced, resolved; suspect undiagnosed chronic obstructive pulmonary disease, who presented to the emergency room with complaints of leg swelling and shortness of breath. She will be admitted under observation for: 1. Shortness of breath. The patient does have bilateral lower leg swelling with associated shortness of breath. The patient was treated for chronic obstructive pulmonary disease exacerbation in her recent admission in the beginning of September. At this time, the patient has no wheezes. She does have bilateral lower leg swelling. Her chest x-ray is concerning from pulmonary congestion versus pneumonitis. She does have an elevated D-dimer over 300. Given these findings, I will get a CTA of the chest to rule out pulmonary embolism. She can have albuterol nebulizer as needed for shortness of breath or wheezing and I will give her a small dose of Lasix 20 mg IV. I suspect that she could have underlying chronic obstructive pulmonary disease exacerbation first, most likely congestive heart failure as the patient did have a recovery of her EF during her last hospitalization. Last EF on 09/17 was 55% to 60%. 2. Hypertension. The patient will continue on lisinopril as previously prescribed. 3. Hyperthyroid. The patient is not currently taking her methimazole/Tapazole 5 mg p.o. daily as it did cause increased liver functions, so this medication was stopped as an outpatient. 4. Gastroesophageal reflux disease. She should continue on Nexium as previously prescribed. 5. Hyperlipidemia. She will continue on atorvastatin as previously prescribed. 6. Chronic back pain. She can take her morphine as needed for chronic back pain as well as Celebrex. 7. FEN. She can have a regular diet. 8. Code status. She is a full code. 9. DVT prophylaxis. I will place her on Lovenox subcu. TIME SPENT: Time spent on this admission was 60 minutes, greater than half that time was spent at the bedside reviewing events leading thus far to her hospitalization, performing physical exam, and reviewing my plan of care. I have discussed this with my attending, Dr. Luma Baptiste; she is in agreement with my plan. NESS DALEY, MERCHANDISING DIRECTOR [id number]/CPS #: [id number] MENDOZA
[2019-10-19] MEDS: COLESTIPOL 1 GM PO SCH ×2 (00:49→11:48)
[2019-10-19 06:19] LABS: ABS Eosinophils 0.3 10^3/ul (0-0.6); ABS Lymphocytes 3.3 10^3/ul (1.0-4.8); ABS Monocytes 0.6 10^3/ul (0-0.8); ABS Neutrophils 2.5 10^3/ul (1.5-7.7); Eosinophil % 4.8 %; Hematocrit 34 % (35-47); Hemoglobin 11.7 g/dL (12.0-16.0); Lymphocyte % 49.1 %; Mean Corpuscular HGB Conc 34 g/dL (31-36); Mean Corpuscular Hemoglobin 30 pg (27-31); Mean Corpuscular Volume 89 fL (80-97); Nucleated Red Blood Cells % 0.1; Platelet Count 286 10^3/uL (150-450); Red Blood Count 3.86 10^6 /uL (3.70-4.87); Red Cell Distribution Width 13 % (10-15); White Blood Count 6.7 10^3/uL (3.5-10.8)
[2019-10-19 06:35] LABS: BUN/Creatinine Ratio 6.1 (8-20); Calcium 8.2 mg/dL (8.6-10.3); EGFR African American 111.3 (>60); Potassium 3.6 mmol/L (3.5-5.0)
[2019-10-19] MEDS ORDERED: Morphine TAB Extended Release (*) 30 MG TAB.ER PO SCH (09:00)
[2019-10-19] MEDS: traMADol TAB* 50 MG PO PRN ×3 (09:04→22:33)
[2019-10-19] MEDS: Aspirin EC TAB* 81 MG TAB.EC PO SCH (09:05)
[2019-10-19] MEDS: Lisinopril TAB* 5 MG PO SCH (09:05)
[2019-10-19] MEDS: Metoprolol Succinate XL TAB* 50 MG PO SCH ×2 (09:05→22:30)
[2019-10-19] MEDS: Fluticasone NASAL SPRAY 50MCG* 16 gm SPRAY BTL BOTH NARES SCH (09:13)
[2019-10-19] MEDS: ESOMEPRAZOLE 40 MG PO SCH ×2 (09:13→22:30)
[2019-10-19] MEDS: Morphine TAB Extended Release (*) 30 MG TAB.ER PO SCH (09:42)
[2019-10-19] MEDS: celeCOXIB CAP* 200 MG PO SCH ×2 (09:42→22:29)
--- NOTE | 2019-10-19 09:43 | ECHO ---
*[facility]* [place] [address] Fax #: [phone] Transthoracic Echocardiogram Patient: Adriana Altamirano : 1960 Study Date: 10/19/2019 Age: 58 Gender: F HR: 68 bpm Height: 59 in /149.9 cm BSA: 1.72 m^2 Weight: 169.6 lb /77.1 kg BMI: 34.3 kg/m^2 *[employer] Dean: * Kathryn Polanco [facility] *Referring Physician: * Ness Daley *Reading Physician: * Oivdio Swan MD Indications: SOB. History: Chronic obstructive pulmonary disease. PMH: Cardiomyopathy. Recent ejection fraction 30-35% increased to 55-60%. Risk factors: Former tobacco use. Hypertension. Dyslipidemia. Conclusions Summary: - Left ventricle: Systolic function is normal. The estimated ejection fraction is 55-60%. Hypokinesis of the basal-midanteroseptal and anterior myocardium. - Right ventricle: Systolic function is normal. - Mitral valve: There is mild regurgitation. - Aortic valve: There is no evidence of stenosis. - Tricuspid valve: There is trace to mild regurgitation. - Pulmonary arteries: Systolic pressure is within the normal range. - Compared to study of 09/17/19, there is no change. Study data: Transthoracic echocardiogram. Procedure: Transthoracic echocardiography was performed. Image quality was fair. Complete 2D, spectral Doppler, and color flow Doppler. Location: Bedside. Patient status: Inpatient. Rhythm: Normal sinus rhythm. Findings Left ventricle: The cavity size is normal. Wall thickness is normal. Systolic function is normal. The estimated ejection fraction is 55-60%. Regional wall motion abnormalities: Hypokinesis of the basal-midanteroseptal and anterior myocardium. There is no consistent Doppler evidence of clinically significant diastolic dysfunction. Right ventricle: The cavity size is normal. Wall thickness is mildly increased. Systolic function is normal. Systolic pressure is within the normal range. Left atrium: The atrium is normal in size. Right atrium: The atrium is normal in size. Mitral valve: The leaflets are mildly thickened. There is no evidence of stenosis. There is mild regurgitation. Aortic valve: The valve is trileaflet. The leaflets are mildly thickened. There is no evidence of stenosis. There is trace regurgitation. Tricuspid valve: The leaflets are normal thickness. There is no evidence of stenosis. There is trace to mild regurgitation. Pulmonic valve: The leaflets are normal thickness. There is no evidence of stenosis. There is trace regurgitation. Aorta: Aortic root: The aortic root is appears normal. Ascending aorta: The ascending aorta is appears normal. Aortic arch: The aortic arch is appears normal. Pericardium: A prominent pericardial fat pad is present. There is no significant pericardial effusion. Pulmonary arteries: The main pulmonary artery is normal-sized. Systolic pressure is within the normal range. Systemic veins: Inferior vena cava: The vessel is at the upper limits of normal in size. There is (>= 50%) respiratory change in the IVC dimension. Measurements Left ventricle Value Ref Aortic valve Value Ref KATELIN, LAX 4.4 cm 3.8 - 5.2 Shannan diam, ED 2.0 cm ----- ESD, LAX 2.8 cm 2.2 - 3.5 Peak v, S 1.09 m/sec ----- FS, LAX 36 % 27 - 45 VTI, S 24.3 cm ----- PW, ED, LAX (H) 1.0 cm 0.6 - 0.9 Mean grad, S 3.0 mm Hg ----- FS 36 % 27 - 45 Peak grad, S 5.0 mm Hg ----- PW, ED (H) 1.0 cm 0.6 - 0.9 LVOT/AV, VTI ratio 0.91 ----- E', lat shannan, TDI (L) 6.5 cm/sec >=10.0 E/e', lat shannan, 14 Mitral valve Value Ref TDI Peak E 0.89 m/sec ----- E', med shannan, TDI 7.4 cm/sec >=7.0 Peak A 0.56 m/sec --- -- E/e', med hsannan, 12 Decel time 176 ms ----- TDI Peak grad, D 3.2 mm Hg ----- E', avg, TDI 7.0 cm/sec Peak E/A ratio 1.6 ----- E/e', avg, TDI 13 <=14 Pulmonic valve Value Ref LVOT Value Ref Peak v, S 0.83 m/sec ----- Peak ajay, S 1 m/sec Peak grad, S 3.0 mm Hg ----- VTI, S 22.0 cm Mean grad, S 3 mm Hg Tricuspid valve Value Ref TR peak v 2.6 m/sec <=2.8 Ventricular septum Value Ref Peak RV-RA grad, S 27 mm Hg ----- IVS, ED 0.7 cm 0.6 - 0.9 Aortic root Value Ref Right ventricle Value Ref Root diam 2.9 cm <3.9 AW thickness, ED (H) 0.6 cm 0.1 - 0.5 KATELIN, LAX 3.0 cm Ascending aorta Value Ref KATELIN minor ax, A4C 3.2 cm 1.9 - 3.5 AAo AP diam, S 3.1 cm ----- mid Pressure, S 30 mm Hg Aortic arch Value Ref Arch diam 2.4 cm ----- Left atrium Value Ref AP dim, ES 3.40 cm 2.70 - Decending aorta Value Ref 3.80 Girma peak ajay 0.56 m/sec ----- ML dim, A4C 2.8 cm SI dim, A4C 5.0 cm Pulmonary artery Value Ref Vol/bsa, ES, 1-p 12 ml/m^2 11 - 40 Pressure, S 27.0 mm Hg ----- A4C Vol/bsa, ES, A/L 24 ml/m^2 16 - 34 Inferior vena cava Value Ref Diam 2.1 cm ----- Right atrium Value Ref SI dim, ES 4.0 cm 3.4 - 5.3 ML dim, ES, A4C 3.7 cm 2.6 - 4.4 SI dim, ES, A4C 4.0 cm 3.4 - 5.3 Estimated RAP 3 mm Hg Legend: (L) and (H) criss values outside specified reference range. Prepared and electronically signed by Ovidio Swan MD 10/19/2019 09:43
[2019-10-19] MEDS ORDERED: Furosemide IV* 10 MG/ML VIAL (40 MG) IV ONE (10:31)
--- NOTE | 2019-10-19 15:59 | PN ---
Subjective Date of Service: 10/19/19 Interval History: Ms. Altamirano is feeling about the same today as yesterday. Still feeling intermittently SOB with exertion. She thinks her BLE edema has decreased slightly, but not significantly. Denies CP. No concerns from nursing. Family History: Unchanged from Admission Social History: Unchanged from Admission Past Medical History: Unchanged from Admission Objective Active Medications: Acetaminophen (Tylenol Tab*) 650 mg PO Q4H PRN MILD PAIN or TEMP > 100.4 Albuterol (Ventolin 2.5 Mg/3 Ml Neb.Tamara*) 2.5 mg INH Q4H PRN SOB/WHEEZING Amitriptyline HCl (Elavil Tab*) 20 mg PO DAILY@2200 GUILLE Aspirin (Aspirin Ec Tab*) 81 mg PO DAILY GUILLE Atorvastatin Calcium (Lipitor*) 10 mg PO BEDTIME GUILLE Celecoxib (Celebrex Cap*) 200 mg PO BID GUILLE Colestipol HCl (Colestipol (Nf)) 1 gm PO BID@1000,2300 GUILLE; Protocol Docusate Sodium (Colace Cap*) 200 mg PO BEDTIME GUILLE Enoxaparin Sodium (Lovenox(*)) 40 mg SUBCUT Q24H GUILLE Esomeprazole Magnesium (Nexium(Nf)) 40 mg PO BID GUILLE Fluticasone Propionate (Flonase Nasal [place] 50mcg*) 2 spray BOTH NARES DAILY GUILLE Lisinopril (Prinivil Tab*) 2.5 mg PO DAILY GUILLE Metoprolol Succinate (Toprol Xl Tab*) 75 mg PO BID GUILLE Morphine Sulfate (Ms Contin(*)) 60 mg PO DAILY GUILLE Senna (Senokot 8.6 Mg Tab*) 4 tab PO BEDTIME GUILLE Tramadol HCl (Ultram*) 50 mg PO Q6H PRN PAIN - MODERATE Vital Signs - 8 hr 10/19/19 10/19/19 10/19/19 09:04 09:42 10:44 Temperature Pulse Rate Respiratory 20 20 16 Rate Blood Pressure (mmHg) O2 Sat by Pulse Oximetry 10/19/19 10/19/19 10/19/19 11:13 11:15 15:22 Temperature 97.6 F Pulse Rate 72 Respiratory 16 16 16 Rate Blood Pressure 140/67 (mmHg) O2 Sat by Pulse 91 Oximetry Oxygen Devices in Use Now: None Appearance: Middle-aged female sitting in bed in NAD Ears/Nose/Mouth/Throat: Mucous Membranes Moist Neck: NL Appearance and Movements; NL JVP, Trachea Midline Respiratory: Symmetrical Chest Expansion and Respiratory Effort, Clear to Auscultation - Diminished Cardiovascular: NL Sounds; No Murmurs; No JVD, RRR Abdominal: NL Sounds; No Tenderness; No Distention Extremities: - - +2 pitting BLE Neurological: Alert and Oriented x 3 Lines/Tubes/Other Access: Clean, Dry and Intact Peripheral IV Nutrition: Taking PO's Result Diagrams: 10/19/19 06:03 10/19/19 06:03 Assess/Plan/Problems-Billing Assessment: Ms. Altamirano is a 58 yo F with PMH of chronic back pain, GERD, hypothyroidism, HTN , HLD, recent stress-induced cardiomyopathy, likely COPD; who presented to the ED with c/o SOB and LE edema and was admitted for further evaluation. - Patient Problems (1) Lower extremity edema Code(s): R60.0 - LOCALIZED EDEMA Comment: - Likely secondary to cardiomyopathy, though there is no systolic or diastolic dysfunction noted on echo - Will likely need to be on daily furosemide for at least a few weeks, possibly longer - Continue furosemide (2) Shortness of breath Code(s): R06.02 - SHORTNESS OF BREATH Comment: - Intermittent, worse with exertion - Lungs clear, but very diminished throughout - CXR shows questionable interstitial edema, but CTA clear - Suspect this is secondary to undiagnosed COPD - Start Dulera (3) COPD (chronic obstructive pulmonary disease) Code(s): J44.9 - CHRONIC OBSTRUCTIVE PULMONARY DISEASE, UNSPECIFIED Comment: - Not in exacerbation - Diagnosis based on significant smoking history and CT findings of emphysema - Will need outpatient PFTs for formal diagnosis - Start Dulera (4) Nonischemic cardiomyopathy Code(s): I42.8 - OTHER CARDIOMYOPATHIES Comment: - Onset September 2019, thought to be [place] - Echo shows EF 55-60%, unchanged from prior study - Continue metoprolol, lisinopril (5) Hypertension Code(s): I10 - ESSENTIAL (PRIMARY) HYPERTENSION Comment: - Normotensive - Continue metoprolol, lisinopril, furosemide (6) Hyperlipidemia Code(s): E78.5 - HYPERLIPIDEMIA, UNSPECIFIED Comment: - Continue atorvastatin (7) Chronic back pain Code(s): M54.9 - DORSALGIA, UNSPECIFIED; G89.29 - OTHER CHRONIC PAIN Comment: - Continue morphine, Tramadol, Celebrex (8) Hyperthyroidism Code(s): E05.90 - THYROTOXICOSIS, UNSP WITHOUT THYROTOXIC CRISIS OR STORM Comment: - Diagnosed in September 2019 - Previously on methimazole which was stopped outpatient d/t transaminitis - Recheck TSH (9) DVT prophylaxis Code(s): Z29.9 - ENCOUNTER FOR PROPHYLACTIC MEASURES, UNSPECIFIED Comment: - Lovenox (10) Full code status Code(s): Z78.9 - OTHER SPECIFIED HEALTH STATUS Comment: Status and Disposition: Observation. Anticipate d/c home tomorrow. Attending: Saida Lora
[2019-10-19] MEDS: Enoxaparin(*) 40 MG/0.4 ML SYR SUBCUT SCH (16:47)
[2019-10-19] MEDS: Mometasone/Formoter 200/5 MDI INH SCH (19:55)
[2019-10-19] MEDS ORDERED: Atorvastatin* 10 MG TAB PO SCH (21:00)
[2019-10-19] MEDS: Senna TAB 8.6 mg* TAB PO SCH (22:30)
[2019-10-19] MEDS: Docusate CAP* 100 MG PO SCH (22:30)
[2019-10-19] MEDS: Amitriptyline TAB* 10 MG PO SCH (22:39)
[2019-10-20] MEDS: COLESTIPOL 1 GM PO SCH ×2 (00:27→12:03)
[2019-10-20 06:18] LABS: BUN/Creatinine Ratio 17.1 (8-20); Calcium 8.5 mg/dL (8.6-10.3); EGFR Non-African American 85.9 (>60); Potassium 4.5 mmol/L (3.5-5.0)
[2019-10-20] MEDS: Mometasone/Formoter 200/5 MDI INH SCH (09:26)
[2019-10-20] MEDS: Aspirin EC TAB* 81 MG TAB.EC PO SCH (09:42)
[2019-10-20] MEDS: Morphine TAB Extended Release (*) 30 MG TAB.ER PO SCH (09:43)
[2019-10-20] MEDS: Metoprolol Succinate XL TAB* 50 MG PO SCH (09:45)
[2019-10-20] MEDS: ESOMEPRAZOLE 40 MG PO SCH (09:47)
[2019-10-20] MEDS: celeCOXIB CAP* 200 MG PO SCH (09:47)
[2019-10-20] MEDS: Lisinopril TAB* 5 MG PO SCH (09:48)
[2019-10-20] MEDS: Fluticasone NASAL SPRAY 50MCG* 16 gm SPRAY BTL BOTH NARES SCH (09:49)
[2019-10-20] MEDS: traMADol TAB* 50 MG PO PRN (09:55)
[2019-10-20] MEDS ORDERED: Furosemide IV* 10 MG/ML VIAL (40 MG) IV ONE (10:52)
[2019-10-20 12:27] VITALS: BP 139/66
--- NOTE | 2019-10-20 21:25 | DS ---
CC: Dr. Jamison Rivas; Dr. Jermaine Esparza * DISCHARGE SUMMARY: DATE OF ADMISSION: 10/18/19 DATE OF DISCHARGE: 10/20/19 PRIMARY CARE PROVIDER: Dr. Jamison Rivas. ATTENDING PHYSICIAN: Dr. Saida Lora.* (DICTATED BY ODETTE TOUSSAINT NP) PRIMARY DIAGNOSES: 1. Peripheral edema with history of nonischemic cardiomyopathy. 2. Suspected chronic obstructive pulmonary disease. SECONDARY DIAGNOSES: 1. Hypertension. 2. Hyperlipidemia. 3. Chronic back pain. 4. Hyperthyroidism. STUDIES WHILE IN THE HOSPITAL: 1. EKG on 10/18/19 shows normal sinus rhythm at a rate of 62, Q waves present in septal leads. 2. Chest x-ray on 10/18/19 reads as increased interstitial lung markings as well as density of the posterior costophrenic angle due to pulmonary edema, pneumonitis, or drug toxicity. 3. Bilateral lower extremity venous Doppler study on 10/18/19 reads as no bilateral lower extremity deep vein thrombosis. 4. Chest thorax CTA on 10/18/19 reads as no pulmonary emboli, mild lymphedema. 5. Transthoracic echocardiogram on 10/19/19 reads as left ventricular systolic function is normal. The estimated ejection fraction is 55% to 60%. Hypokinesis of the basal, mid anterior septal and anterior myocardium. Right ventricular systolic pressure is normal. There is mild MR. There is no evidence of AF. There is [id number] TR. Systolic pressure in the pulmonary arteries is within the normal range. Compared to study of 09/17/19, there is no change. HISTORY OF PRESENT ILLNESS AND HOSPITAL COURSE: Ms. Altamirano is a 58-year-old female with past medical history of back pain, GERD, hyperlipidemia, hypertension, and recent diagnoses of stress-induced cardiomyopathy and hyperthyroidism, who presented to the emergency room on 10/18/19 with complaints of shortness of breath and lower extremity edema. Please see the history and physical by Ness Daley NP for a complete summary of the events leading up to this hospitalization. In short, the patient was admitted to this facility last month due to thyroid storm. She had associated stress- induced cardiomyopathy and EF at that time was as low as 30%, although later in that hospitalization was increased to 55% to 60%. The patient was sent home on beta jose f and MARQUIS inhibitor therapy and had been doing moderately well until later in the month of September when she noted progressive shortness of breath and lower extremity edema. Due to these concerns, she presented to the emergency room. In the emergency room, she had imaging as noted above. BNP was noted to be 390. She had mild hypokalemia. The lab work was otherwise essentially normal. Vitals were stable and the patient was saturating well on room air, though due to concerns because of her recent cardiomyopathy, she was admitted by the hospitalist service. The patient had a repeat echo as noted above and there are no further changes. EF is still within normal range. At this point, because the lower extremity edema has been worsening over the last couple of weeks, I think that this is likely attributable to her recent diagnosis of cardiomyopathy, although she is not in any sort of acute congestive heart failure. She is certainly prone to retaining fluid. She has received multiple doses of furosemide here in the hospital, which she has responded well to and at this point has a net deficit of over 3600 mL. Regarding her shortness of breath, this is intermittent, sometimes worse with exertion, although not always. I do not think her shortness of breath is secondary to cardiomyopathy, but rather undiagnosed COPD. The patient was previously treated for a possible COPD exacerbation. She does have a significant smoking history and CT does show findings of emphysema. The patient was recommended to have pulmonary function test after her last hospitalization, although those have not been completed yet. Regardless, even without those PFTs, the diagnosis of COPD is almost certain. At this point, I have started the patient on inhalers for treatment of COPD. This morning, she denied any significant shortness of breath and she does note that her lower extremity edema has improved. She offers no complaints and is agreeable to discharge. On exam, she is alert and oriented x4. She has no focal neurological deficits. Heart has a regular rate and rhythm without murmurs, rubs, or gallops. Lungs are clear to auscultation without rhonchi, wheezes or rubs. Abdomen is soft, nontender, and nondistended. Lower extremities have +1 to +2 today, which is improved from yesterday. Ms. Altamirano is stable for discharge today. Most recent vitals are as follows: Temp 97.3, heart rate 71, respiratory rate 18, oxygen saturation 92% on room air , blood pressure 139/66. DISCHARGE MEDICATIONS: New medications: 1. Albuterol MDI 1 to 2 puffs q.4 hours p.r.n. shortness of breath, wheezing. 2. Furosemide 20 mg p.o. daily. 3. Dulera 200/5 two puffs b.i.d. Continued medications: 1. Amitriptyline 20 mg p.o. at bedtime. 2. Aspirin 81 mg p.o. daily. 3. Atorvastatin 10 mg p.o. at bedtime. 4. Celebrex 200 mg p.o. b.i.d. 5. Colestipol 1 g p.o. b.i.d. 6. Esomeprazole 50 mg p.o. b.i.d. 7. Fluticasone 2 sprays both nares daily. 8. Lisinopril 2.5 mg p.o. daily. 9. Metoprolol succinate 75 mg p.o. b.i.d. 10. Morphine ER 60 mg p.o. daily. 11. Senna/docusate 4 tabs p.o. at bedtime. 12. Tramadol 50 mg p.o. q.6 hours p.r.n. pain. 13. Tessalon 100 mg p.o. b.i.d. p.r.n. cough. 14. Betamethasone 0.05% one application topically b.i.d. p.r.n. 15. Soma 350 mg p.o. 4 times daily p.r.n., muscle spasm. 16. Multivitamin 1 tab p.o. daily. 17. Nicotine patch 14 mg 1 patch transdermal daily. DISCHARGE PLAN: Ms. Altamirano will be discharged home. ACTIVITY: As tolerated. DIET: Heart healthy. MEDICATIONS: Noted above. I have placed the patient on Dulera and albuterol for treatment of her likely COPD, though she will need a formal pulmonary function test as an outpatient. I have additionally placed her on a daily dose of furosemide, which I think she will need for at least the next month. I do not think that she necessarily needs to, will need to be on this indefinitely though certainly should be on it for at least a month to ensure resolution of her peripheral edema. She can continue her other usual medications as noted above. She will need to follow up with her primary care provider in the next 4 to 7 days and she should follow up with Dr. Esparza as previously recommended by him. Of note, TSH on this admission was noted to be 0.00, which is consistent with previous result. The patient had previously been on lisinopril so, that was stopped due to transaminitis. So, I will defer further treatment to Endocrinology. The patient should return to the emergency room or nearest hospital for any worsening of symptoms, shortness of breath, lightheadedness, dizziness, chest discomfort, high fevers, chills, night sweats, loss of consciousness or any other worrisome signs or symptoms. DISCHARGE CONDITION: Stable. DISCHARGE DISPOSITION: Home. This is a summarized report of a complex medical history and hospital stay. For further details, please see the entire medical record. TIME SPENT: Approximately 50 minutes was spent on this discharge. ODETTE TOUSSAINT NP [id number]/CPS #: [id number] [place]
== END 2019-10-20 19:00 | disposition home or self-care (01) ==
LOC: ED 15:21 → MEDTELE 18:21
PROVIDERS: ADMIT Student in an Organized Health Care Education/Training Program; ATTEND Internal Medicine
DX: I10 Essential (primary) hypertension (principal); E78.5 Hyperlipidemia, unspecified; I42.8 Other cardiomyopathies; G89.29 Other chronic pain; M54.9 Dorsalgia, unspecified; E05.90 Thyrotoxicosis, unspecified without thyrotoxic crisis or storm; Z79.82 Long term (current) use of aspirin; R06.02 Shortness of breath; K21.9 Gastro-esophageal reflux disease without esophagitis; Z87.442 Personal history of urinary calculi; F17.210 Nicotine dependence, cigarettes, uncomplicated
CPT/HCPCS: 36415; 71046; 71275; 80048; 80053; 81003; 81015; 83735; 83880; 84443; 84484; 85025; 85027; 85379; 87086; 93005; 93306; 93970; 94640; 96365; 96366; 96372; 96375; 96376; 99284; A9270-GY; G0378; J1650; J1940; J3475; Q9967